=== PATIENT | female | born 1980 | race Caucasian/White ===

== ENCOUNTER → 2017-08-07 14:09 | Outpatient (CLI) | payer OTHER, MEDICAID, SELFPAY ==
[2017-08-07 14:43] LABS: Add Manual Diff / Slide Review NO; Basophils Percent Auto 0.3 % (0-2); Hematocrit 39.2 % (36-46); Hemoglobin 13.5 g/dL (12.0-16.0); Mean Corpuscular HGB Conc 34.4 % (30-36); Mean Corpuscular Hemoglobin 31.8 PG (26-34); Mean Corpuscular Volume 92.5 fL (80-100); Monocytes Percent Auto 8.5 % (3-14); Neutrophils Absolute Auto 5200 /uL (3000-5900); Neutrophils Percent Auto 64.2 % (50-75); Platelet Count 301 X10^3/uL (150-400); Red Blood Cell Count 4.24 X10^6/uL (4.0-5.2); Red Cell Distribution Width 12.7 % (11.6-14.8); White Blood Cell Count 8.1 X10^3/uL (4.5-11.0)
[2017-08-07 16:42] LABS: BUN Creatinine Ratio 16.7 (6-22); Calcium 9.1 mg/dL (8.4-10.2); Estimated Glomerular Filt Rate > 60.0 mL/min (>60); Glucose 83 mg/dL (70-100); HEMOLYSIS < 15 (0-50); Potassium 4.3 mmol/L (3.4-5.1); Sodium 140 mmol/L (137-145)
[2017-08-07 16:56] LABS: Free T3, Triiodothyronine Free 4.51 pg/mL (2.77-5.27); Free T4, Direct Thyroxine 1.31 ng/dL (0.78-2.19)
[2017-08-07 17:10] LABS: Thyroid Stimulating Hormone 1.65 uIU/mL (0.47-4.68)
== END ==
PROVIDERS: Specialist; Family Provider Family Medicine; PCP Family Medicine; Visit Provider Family Medicine
DX: R53.83 Other fatigue (principal); Z83.49 Family history of other endocrine, nutritional and metabolic diseases
CPT/HCPCS: 36415; 80048; 84439; 84443; 84481; 85025

== ENCOUNTER 2018-02-15 22:08 | Emergency (ER) | payer SELFPAY ==
[2018-02-15 22:17] VITALS: BP 132/76; PULSE 117; RESP 22; TEMP 36.4; O2SAT 96; BMI 19.7
[2018-02-15 22:29] LABS: Appearance Urine UA TURBID; Bilirubin Urine UA NEGATIVE (NEGATIVE); Color Urine UA RED; Glucose Urine UA NEGATIVE (Normal); Ketones Urine UA TRACE (NEGATIVE); Leukocyte Esterase Urine UA NEGATIVE (NEGATIVE); Nitrite Urine UA NEGATIVE (Negative); Occult Blood Urine UA 3+ (Negative); Protein Urine UA 2+ (Negative); Specific Gravity Urine UA 1.025 (1.000-1.035); Urobilinogen Urine UA 0.2 E.U./dL (0.2); pH Urine UA 6.5 (4.5-8.0)
[2018-02-15 22:35] LABS: RBC Urine >100/HPF (0-5/HPF); WBC Urine 0-1/HPF (0-5/HPF)
[2018-02-15 22:36] LABS: Bacteria Urine Occasional (0-1); Culture Indicated Urine Cult Not Indicated
[2018-02-15] MEDS: KETOROLAC 60 MG/2 ML VIAL 15 MG IV (23:23)
[2018-02-15] MEDS: SODIUM CHLORIDE 0.9% 1,000 ML 1000 ML IV (23:23)
[2018-02-15] MEDS: ONDANSETRON 4 MG/2 ML INJ IV (23:24)
[2018-02-15] MEDS: CEFTRIAXONE 1 GM/50 ML FROZ.PIGGY IV (23:24)
[2018-02-16] MEDS: HYDROMORPHONE 1 MG INJ IV (00:16)
[2018-02-16 00:20] LABS: Add Manual Diff / Slide Review NO; Basophils Percent Auto 0.2 % (0-2); Eosinophils Percent Auto 0.7 % (2-4); Hematocrit 40.3 % (36-46); Hemoglobin 13.8 g/dL (12.0-16.0); Lymphocytes Percent Auto 15.8 % (25-40); Mean Corpuscular HGB Conc 34.1 % (30-36); Mean Corpuscular Hemoglobin 32.3 PG (26-34); Mean Corpuscular Volume 94.7 fL (80-100); Monocytes Percent Auto 5.6 % (3-14); Neutrophils Absolute Auto 14600 /uL (3000-5900); Neutrophils Percent Auto 77.7 % (50-75); Platelet Count 347 X10^3/uL (150-400); Red Blood Cell Count 4.26 X10^6/uL (4.0-5.2); Red Cell Distribution Width 13.2 % (11.6-14.8); White Blood Cell Count 18.8 X10^3/uL (4.5-11.0)
[2018-02-16 00:24] LABS: BUN Creatinine Ratio 21.7 (6-22); Blood Urea Nitrogen 13 mg/dL (7-17); Calcium 9.9 mg/dL (8.4-10.2); Carbon Dioxide 24 mmol/L (22-32); Chloride 105 mmol/L (98-107); Estimated Glomerular Filt Rate > 60.0 mL/min (>60); Glucose 65 mg/dL (70-100); HEMOLYSIS < 15 (0-50); Potassium 3.9 mmol/L (3.4-5.1); Sodium 144 mmol/L (137-145)
[2018-02-16 00:25] LABS: Lactate (Lactic Acid) 1.4 mmol/L (0.7-2.1)
--- NOTE | 2018-02-16 00:28 | ED.FEMALEGU ---
HPI - Female Genitourinary General Chief complaint: Urogenital-Female Stated complaint: KIDNEY INFECTION Time Seen by Provider: 02/15/18 22:31 Source: patient and family History of Present Illness HPI Narrative: 37F former smoker presents with chief complaint of a few days of dysuria, frequency and urgency as well as bilateral lumbar and flank discomfort. She has had subjective fever but denies chills. She has had nausea but denies vomiting. Patient has a longstanding history of pyelonephritis and is under the care of a urologic specialist in [place]. She states the current hypothesis is that her chronic constipation exerts pressure on the ureters preventing appropriate drainage. She has undergone significant evaluation of her bowel habits and has taken as many steps as possible to ensure regular. Her last us of antibiotics was about 6 months ago MD Complaint: dysuria and UTI Onset (ago): day(s) Female Urogenital Radiation: L Flank and R Flank Severity: moderate Quality: Aching, Burning and Cramping Duration: constant Relieving factors: none Exacerbating factors: urination and movement Urinary symptoms: Difficulty Urinating, Dysuria, Flank Pain, Foul Smelling Urine and Frequency Patient : No Related Data Previous Rx's Medication Instructions Recorded levonorgestrel-ethinyl estradiol 1 tab PO QDAY #3 pac 01/31/18 0.1 mg-20 mcg tablet cephalexin [Keflex] 500 mg PO QID 10 Days #40 cap 02/16/18 hydrocodone-acetaminophen 1 tab PO Q4-6H PRN #14 tab 02/16/18 ondansetron 4 mg PO TID-QID PRN #10 tab 02/16/18 Allergies Allergy/AdvReac Type Severity Reaction Status Date / Time Sulfa (Sulfonamide Allergy Severe ANAPHYLACTI Verified 02/15/18 22:17 Antibiotics) C Review of Systems Review of Systems All systems reviewed & are unremarkable except as noted in HPI and below Constitutional Denies chills, Denies fever(s), Denies lethargy and Denies weakness Eyes Denies change in vision, Denies eye discharge, Denies irritation and Denies loss of vision ENT Ears, Nose, Mouth, and Throat: Denies change in voice, Denies neck pain and Denies sore throat Cardiovascular Denies chest pain, Denies irregular heart rhythm, Denies lightheadedness, Denies palpitations, Denies dyspnea, Denies dyspnea on exertion and Denies orthopnea Respiratory Denies cough, Denies dyspnea, Denies dyspnea on exertion and Denies wheezing Gastrointestinal Gastrointestinal: Denies abdominal pain, Denies change in bowel habits, Denies diarrhea, Denies nausea and Denies vomiting Genitourinary Denies hematuria, Reports flank pain, Denies urinary incontinence and Reports urinary urgency Musculoskeletal Reports back pain and Denies neck pain Integumentary/Breasts Denies pruritus, Denies erythema, Denies rash and Denies wounds Neurologic Denies confusion, Denies loss of vision and Denies weakness Psychiatric Denies anxiety, Denies confusion, Denies depression, Denies homicidal ideation and Denies suicidal ideation Endocrine Denies palpitations Hematologic/Lymphatic Denies easy bruising Allergic/Immunologic Denies wheezing [facility] Surgical History Status post dilation and curettage Status post tubal ligation Family History Brother Age: 25 Mental health problem Father Age: 60 Hypertension High cholesterol Mental health problem Grandmother Hypertension High cholesterol Mother Mental health problem Grandfather Heart disease Hypertension High cholesterol Stroke Grandmother Hypertension High cholesterol Social History Smoking Status: Current every day smoker Exam Narrative Exam Narrative: GENERAL: 37-year-old female's obviously uncomfortable, tearful clutching her lower back HEAD: Atraumatic. Normocephalic. No temporal or scalp tenderness. EYES: Pupils equal round and reactive. Extraocular motions intact. No scleral icterus. No injection or drainage. ENT: Nose without bleeding, purulent drainage or septal hematoma. Throat without erythema, tonsillar hypertrophy or exudate. Uvula midline. Airway patent. NECK: Trachea midline. No JVD or lymphadenopathy. Supple, nontender, no meningeal signs. CARDIOVASCULAR: Tachycardic, but regular rhythm without murmurs, gallops, or rubs. RESPIRATORY: Clear to auscultation. Breath sounds equal bilaterally. No wheezes, rales, or rhonchi. GASTROINTESTINAL: Abdomen soft, non-tender, nondistended. No hepato-splenomegaly, or palpable masses. No guarding. EXTREMITIES: No clubbing, cyanosis, or edema. No joint tenderness, effusion, or edema noted. BACK: B/L CVA tenderness NEURO: AOx3. SKIN: No rash or erythema. Initial Vital Signs Initial Vital Signs: Vital Signs Temperature 97.6 F 02/15/18 22:17 Pulse Rate 117 H 02/15/18 22:17 Respiratory Rate 22 02/15/18 22:17 Blood Pressure 132/76 02/15/18 22:17 Pulse Oximetry 96 02/15/18 22:17 Course Orders Ordered: ED Orders 02/15/18 22:12 UA Complete [Urinalysis and Microscopic] Stat 02/16/18 00:07 Basic Metabolic Panel Stat Complete Blood Count AUTO DIFF Stat 02/16/18 00:10 Blood Culture Stat Lactate (Lactic Acid) Stat Discontinued Medications Hydrocodone Bitart/Acetaminophen (Vicodin Prepack) 1 bottle MISC SEEINSTR ONE Stop: 02/16/18 00:45 Last Admin: 02/16/18 00:51 Dose: 1 bottle Hydromorphone HCl (Dilaudid) 1 mg IV NOW ONE Stop: 02/16/18 00:09 Last Admin: 02/16/18 00:16 Dose: 1 mg Ceftriaxone Sodium/Dextrose (Rocephin) 1 gm in 50 mls @ 100 mls/hr IV NOW ONE Stop: 02/15/18 23:41 Last Infusion: 02/16/18 00:07 Dose: 0 mls/hr Admin: 02/15/18 23:24 Dose: 100 mls/hr Sodium Chloride (Normal Saline 0.9%) 1,000 mls @ 1,000 mls/hr IV BOLUS ONE Stop: 02/16/18 00:11 Last Infusion: 02/16/18 01:06 Dose: 0 mls/hr Admin: 02/15/18 23:23 Dose: 1,000 mls/hr Ketorolac Tromethamine (Toradol) 15 mg IV NOW ONE Stop: 02/15/18 23:13 Last Admin: 02/15/18 23:23 Dose: 15 mg Ondansetron HCl (Zofran) 4 mg IV Q4HR PRN PRN Reason: Nausea And Vomiting Last Admin: 02/15/18 23:24 Dose: 4 mg Phenazopyridine HCl (Pyridium 100mg Prepack) 1 bottle MISC SEEINSTR ONE Stop: 02/16/18 01:14 Last Admin: 02/16/18 01:14 Dose: 1 bottle Vital Signs - 8 hr 02/15/18 22:17 02/16/18 00:41 Temperature 97.6 F 98.2 F Pulse Rate 117 H 68 Respiratory Rate 22 Blood Pressure 132/76 Blood Pressure [Left Arm] 108/61 Pulse Oximetry 96 100 MDM - Female Genitourinary Differential Diagnosis Likely urinary tract infection, cervicitis, ovarian cyst, vaginitis and cyst of Bartholin's gland Lab Data Result diagrams: 02/15/18 23:00 02/15/18 23:00 Lab Results 02/15/18 02/15/18 02/15/18 Range/Units 22:12 23:00 23:00 WBC 18.8 H (4.5-11.0) X10^3/uL RBC 4.26 (4.0-5.2) X10^6/uL Hgb 13.8 (12.0-16.0) g/dL Hct 40.3 (36-46) % MCV 94.7 (80-100) fL MCH 32.3 (26-34) PG MCHC 34.1 (30-36) % RDW 13.2 (11.6-14.8) % Plt Count 347 (150-400) X10^3/uL Neut % (Auto) 77.7 H (50-75) % Lymph % (Auto) 15.8 L (25-40) % Ray % (Auto) 5.6 (3-14) % Eos % (Auto) 0.7 L (2-4) % Baso % (Auto) 0.2 (0-2) % Neut # (Auto) 30604 H (8843-4415) /uL Sodium 144 (137-145) mmol/L Potassium 3.9 (3.4-5.1) mmol/L Chloride 105 (98-107) mmol/L Carbon Dioxide 24 (22-32) mmol/L BUN 13 (7-17) mg/dL Creatinine 0.60 (0.52-1.04) mg/dL Estimated GFR > 60.0 (>60) mL/min BUN/Creatinine Ratio 21.7 (6-22) Glucose 65 L (70-100) mg/dL Lactate (0.7-2.1) mmol/L Calcium 9.9 (8.4-10.2) mg/dL Urine Color Red Urine Appearance Turbid Urine pH 6.5 (4.5-8.0) Ur Specific [place] 1.025 (1.000-1.035) Urine Protein 2+ H (Negative) Urine Glucose (UA) Negative (Normal) g/dL Urine Ketones Trace H (NEGATIVE) Urine Occult Blood 3+ H (Negative) Urine Nitrate Negative (Negative) Urine Bilirubin Negative (NEGATIVE) Urine Urobilinogen 0.2 (0.2) E.U./dL Ur Leukocyte Esterase Negative (NEGATIVE) Urine RBC >100/hpf H (0-5/HPF) Urine WBC 0-1/hpf (0-5/HPF) Urine Bacteria Occasional (0-1) (None) Ur Culture Indicated? Cult not indicated Micro UA Comment Not Reportable 02/15/18 Range/Units 23:00 WBC (4.5-11.0) X10^3/uL RBC (4.0-5.2) X10^6/uL Hgb (12.0-16.0) g/dL Hct (36-46) % MCV (80-100) fL MCH (26-34) PG MCHC (30-36) % RDW (11.6-14.8) % Plt Count (150-400) X10^3/uL Neut % (Auto) (50-75) % Lymph % (Auto) (25-40) % Ray % (Auto) (3-14) % Eos % (Auto) (2-4) % Baso % (Auto) (0-2) % Neut # (Auto) (2518-8334) /uL Sodium (137-145) mmol/L Potassium (3.4-5.1) mmol/L Chloride (98-107) mmol/L Carbon Dioxide (22-32) mmol/L BUN (7-17) mg/dL Creatinine (0.52-1.04) mg/dL Estimated GFR (>60) mL/min BUN/Creatinine Ratio (6-22) Glucose (70-100) mg/dL Lactate 1.4 (0.7-2.1) mmol/L Calcium (8.4-10.2) mg/dL Urine Color Urine Appearance Urine pH (4.5-8.0) Ur Specific [place] (1.000-1.035) Urine Protein (Negative) Urine Glucose (UA) (Normal) g/dL Urine Ketones (NEGATIVE) Urine Occult Blood (Negative) Urine Nitrate (Negative) Urine Bilirubin (NEGATIVE) Urine Urobilinogen (0.2) E.U./dL Ur Leukocyte Esterase (NEGATIVE) Urine RBC (0-5/HPF) Urine WBC (0-5/HPF) Urine Bacteria (None) Ur Culture Indicated? Micro UA Comment Point of Care Testing Test Results Negative MDM Narrative Medical decision making narrative: 37F with long urologic history complains of dysuria, frequency, urgency, and flank pain. She denies hx stones. Pain is worse with motion and improves with rest. UA shows blood but no obvious signs of infection. Decision to treat based on patient history and elevated WBC Discharge Plan Departure Patient Disposition: Home Clinical Impression: Pyelonephritis Discharge Date/Time: 02/16/18 01:15 Interventions: ED Discharge Assessment Last Done: 02/16/18 01:11 Instructions: DI for Kidney Infection Activity Restrictions/Additional Instructions: *You have been diagnosed with [ acute pyelonephritis ] *What to do: *Take medications as directed *Follow up with your primary care provider in 2-3 days, call for an appointment. Let them know you were seen in the Emergency Department and that we ask that you be seen in follow up *Return to ER if you should have any new, worsening or concerning symptoms Prescriptions: New hydrocodone-acetaminophen 5-325 mg tablet 1 tab PO Q4-6H PRN (Reason: pain) Qty: 14 RF: 0 cephalexin [Keflex] 500 mg capsule 500 mg PO QID 10 Days Qty: 40 RF: 0 ondansetron 4 mg tablet,disintegrating 4 mg PO TID-QID PRN (Reason: nausea and vomiting) Qty: 10 RF: 0 No Action levonorgestrel-ethinyl estrad [Aviane] 0.1-20 mg-mcg tablet 1 tab PO QDAY Qty: 3 RF: 3 Referrals: Frida Johnson MD [Primary Care Provider] -
[2018-02-16 00:41] VITALS: BP 108/61; PULSE 68; TEMP 36.8; O2SAT 100
[2018-02-16] MEDS: HYDROCODONE/ACET 5/325 PREPACK 1 BOTTLE MISC (00:51)
[2018-02-16] MEDS: PHENAZOPYRIDINE 100 MG PREPACK 1 BOTTLE MISC (01:14)
== END 2018-02-16 01:15 | disposition home or self-care (01) ==
PROVIDERS: Emergency Provider Emergency Medicine; Family Provider Family Medicine; PCP Family Medicine
DX: N12 Tubulo-interstitial nephritis, not specified as acute or chronic (principal)
CPT/HCPCS: 36415; 36591; 80048; 81001; 81025; 83605; 85025; 87040; 96361; 96365; 96375; 99283; 99284; J1170; J1885; J2405

== ENCOUNTER 2018-03-04 13:00 | Emergency (ER) | payer SELFPAY ==
[2018-03-04 13:09] VITALS: BP 110/72; PULSE 88; RESP 15; TEMP 36.7; O2SAT 100; BMI 19.7
[2018-03-04 13:45] LABS: Bacteria Urine Moderate (10-30); Culture Indicated Urine Cult Not Indicated; Mucus Urine 1+ (Negative); RBC Urine 1-5/HPF (0-5/HPF); Squamous Epithelial Cell Urine 10-30 /HPF; WBC Urine 1-5/HPF (0-5/HPF)
--- NOTE | 2018-03-04 14:33 | ED.FEMALEGU ---
HPI - Female Genitourinary <Tamica Mcduffie PA-C - Last Filed: 03/04/18 18:50> General Chief complaint: Urogenital-Female Stated complaint: KIDNEY INFECTION Time Seen by Provider: 03/04/18 14:32 Source: patient Mode of arrival: ambulatory Limitations: no limitations History of Present Illness HPI Narrative: Patient returns with what she suspects is recurrent pyelonephritis. She was seen here almost 3 weeks ago and treated. She states that she got better, however this hit her suddenly again last night, started with flank pain, general malaise, and chills, then had abrupt onset of nausea and vomiting multiple times since this morning as well as flank pain on both sides, mostly on the left and some pressure in her abdomen. She has not taken her temperature at home. She does have urinary urgency and frequency but no dysuria or hematuria. She states that this is typical of her previous infections. She states that she is seeing a urologist for this, and typically can be treated as an outpatient. She has had to be hospitalized once. She states that she had some diarrhea with onset of this, also not unusual. She denies any chest pain, dyspnea, URI symptoms or recent illness. No swelling or pain in the extremities. Denies possibility of , on OCP. Denies any other complaints on systems review aside from chronic fatigue exacerbated by recent infections Related Data Previous Rx's Medication Instructions Recorded levonorgestrel-ethinyl estradiol 1 tab PO QDAY #3 pac 01/31/18 0.1 mg-20 mcg tablet ondansetron 4 mg PO TID-QID PRN #10 tab 02/16/18 levofloxacin [Levaquin] 500 mg PO DAILY 10 Days tab 03/04/18 oxycodone-acetaminophen [Percocet] 1 tab PO Q4-6H PRN #10 tab 03/04/18 Allergies Allergy/AdvReac Type Severity Reaction Status Date / Time Sulfa (Sulfonamide Allergy Severe ANAPHYLACTI Verified 03/04/18 13:09 Antibiotics) C Review of Systems <Tamica Mcduffie PA-C - Last Filed: 03/04/18 18:50> Review of Systems All systems reviewed & are unremarkable except as noted in HPI and below Exam <Tamica Mcduffie PA-C - Last Filed: 03/04/18 18:50> Narrative Exam Narrative: GENERAL APPEARANCE: Patient resting comfortably, in no distress. Intermittently tearful LUNGS: Clear to auscultation bilaterally. HEART: Rate and rhythm regular without murmur, normal S1 and S2, no S3 or S4. ABDOMEN: Soft, ND, +BS x 4 quadrants, no CVAT. Minimal generalized tenderness without guarding or rebound. Exquisite left CVAT EXTREMITIES: No cyanosis or edema, no calf tenderness NEUROLOGIC: Alert, oriented, normal speech and coordination Initial Vital Signs Initial Vital Signs: Vital Signs Temperature 98.0 F 03/04/18 13:09 Pulse Rate 88 03/04/18 13:09 Respiratory Rate 15 03/04/18 13:09 Blood Pressure 110/72 03/04/18 13:09 Pulse Oximetry 100 03/04/18 13:09 <Dede Holliday DO - Last Filed: 03/04/18 19:06> Initial Vital Signs Initial Vital Signs: Vital Signs Temperature 98.0 F 03/04/18 13:09 Pulse Rate 88 03/04/18 13:09 Respiratory Rate 15 03/04/18 13:09 Blood Pressure 110/72 03/04/18 13:09 Pulse Oximetry 100 03/04/18 13:09 Course <Tamica Mcduffie PA-C - Last Filed: 03/04/18 18:50> Additional Information: Patient feels like this is typical of her pyelonephritis. She states she alternates between cephalexin, Cipro and Levaquin for these and has not had side effects. Currently, she states her nausea is resolved. She continues to have pain but is tolerating p.o. medication now. Urine culture is pending. Her lab work from today is reassuring. She agrees to return if any acutely worsening symptoms, otherwise will start Levaquin, advised continue anti-inflammatory as well as given a prescription for some Percocet for the acute pain. She will call urologist tomorrow and arrange follow-up this week as she may need an extended course of antibiotics. Also advised trial of daily MiraLax for her chronic constipation which is felt to affect her urinary output Orders Ordered: ED Orders 03/04/18 13:13 Urine Culture Stat Urine Microscopic Stat 03/04/18 15:09 Basic Metabolic Panel Stat Complete Blood Count AUTO DIFF Stat Lactate (Lactic Acid) Stat Discontinued Medications Hydrocodone Bitart/Acetaminophen ([place] 5/325) 2 tab PO NOW ONE Stop: 03/04/18 16:20 Last Admin: 03/04/18 16:22 Dose: 2 tab Hydromorphone HCl (Dilaudid) 1 mg IV NOW ONE Stop: 03/04/18 14:44 Last Admin: 03/04/18 15:07 Dose: 1 mg Ceftriaxone Sodium/Dextrose (Rocephin) 1 gm in 50 mls @ 100 mls/hr IV NOW ONE Stop: 03/04/18 15:12 Last Infusion: 03/04/18 16:21 Dose: 0 mls/hr Admin: 03/04/18 15:07 Dose: 100 mls/hr Sodium Chloride (Normal Saline 0.9%) 1,000 mls @ 1,000 mls/hr IV BOLUS ONE Stop: 03/04/18 16:14 Last Infusion: 03/04/18 16:44 Dose: 0 mls/hr Admin: 03/04/18 15:17 Dose: 1,000 mls/hr Ketorolac Tromethamine (Toradol) 30 mg IV NOW ONE Stop: 03/04/18 14:44 Last Admin: 03/04/18 15:07 Dose: 30 mg Ondansetron HCl (Zofran) 4 mg IV NOW ONE Stop: 03/04/18 14:44 Last Admin: 03/04/18 15:07 Dose: 4 mg Vital Signs - 8 hr 03/04/18 13:09 03/04/18 15:17 03/04/18 16:24 Temperature 98.0 F Pulse Rate 88 53 L 50 L Respiratory Rate 15 16 16 Blood Pressure 110/72 Blood Pressure [Right Arm] 111/61 109/57 L Pulse Oximetry 100 99 100 03/04/18 16:45 Temperature Pulse Rate 52 L Respiratory Rate 18 Blood Pressure Blood Pressure [Right Arm] 114/51 L Pulse Oximetry <Dede Holliday, - Last Filed: 03/04/18 19:06> Orders Ordered: ED Orders 03/04/18 13:13 Urine Culture Stat Urine Microscopic Stat 03/04/18 15:09 Basic Metabolic Panel Stat Complete Blood Count AUTO DIFF Stat Lactate (Lactic Acid) Stat Discontinued Medications Hydrocodone Bitart/Acetaminophen ([place] 5/325) 2 tab PO NOW ONE Stop: 03/04/18 16:20 Last Admin: 03/04/18 16:22 Dose: 2 tab Hydromorphone HCl (Dilaudid) 1 mg IV NOW ONE Stop: 03/04/18 14:44 Last Admin: 03/04/18 15:07 Dose: 1 mg Ceftriaxone Sodium/Dextrose (Rocephin) 1 gm in 50 mls @ 100 mls/hr IV NOW ONE Stop: 03/04/18 15:12 Last Infusion: 03/04/18 16:21 Dose: 0 mls/hr Admin: 03/04/18 15:07 Dose: 100 mls/hr Sodium Chloride (Normal Saline 0.9%) 1,000 mls @ 1,000 mls/hr IV BOLUS ONE Stop: 03/04/18 16:14 Last Infusion: 03/04/18 16:44 Dose: 0 mls/hr Admin: 03/04/18 15:17 Dose: 1,000 mls/hr Ketorolac Tromethamine (Toradol) 30 mg IV NOW ONE Stop: 03/04/18 14:44 Last Admin: 03/04/18 15:07 Dose: 30 mg Ondansetron HCl (Zofran) 4 mg IV NOW ONE Stop: 03/04/18 14:44 Last Admin: 03/04/18 15:07 Dose: 4 mg Vital Signs - 8 hr 03/04/18 13:09 03/04/18 15:17 03/04/18 16:24 Temperature 98.0 F Pulse Rate 88 53 L 50 L Respiratory Rate 15 16 16 Blood Pressure 110/72 Blood Pressure [Right Arm] 111/61 109/57 L Pulse Oximetry 100 99 100 03/04/18 16:45 Temperature Pulse Rate 52 L Respiratory Rate 18 Blood Pressure Blood Pressure [Right Arm] 114/51 L Pulse Oximetry MDM - Female Genitourinary <Tamica Mcduffie PA-C - Last Filed: 03/04/18 18:50> Lab Data Result diagrams: 03/04/18 15:09 03/04/18 15:09 Lab Results 03/04/18 03/04/18 03/04/18 Range/Units 13:13 15:09 15:09 WBC 9.0 (4.5-11.0) X10^3/uL RBC 3.97 L (4.0-5.2) X10^6/uL Hgb 12.9 (12.0-16.0) g/dL Hct 38.2 (36-46) % MCV 96.2 (80-100) fL MCH 32.4 (26-34) PG MCHC 33.7 (30-36) % RDW 13.7 (11.6-14.8) % Plt Count 332 (150-400) X10^3/uL Neut % (Auto) 66.9 (50-75) % Lymph % (Auto) 23.1 L (25-40) % [place] % (Auto) 8.3 (3-14) % Eos % (Auto) 0.9 L (2-4) % Baso % (Auto) 0.8 (0-2) % Neut # (Auto) 6000 (5965-4377) /uL Sodium 142 (137-145) mmol/L Potassium 4.1 (3.4-5.1) mmol/L Chloride 107 (98-107) mmol/L Carbon Dioxide 23 (22-32) mmol/L BUN 10 (7-17) mg/dL Creatinine 0.70 (0.52-1.04) mg/dL Estimated GFR > 60.0 (>60) mL/min BUN/Creatinine Ratio 14.3 (6-22) Glucose 69 L (70-100) mg/dL Lactate (0.7-2.1) mmol/L Calcium 9.5 (8.4-10.2) mg/dL Urine RBC 1-5/hpf D (0-5/HPF) Urine WBC 1-5/hpf (0-5/HPF) Ur Squamous Epith Cells 10-30 /hpf H Urine Bacteria Moderate (10-30) H (None) Urine Mucus 1+ H (Negative) Ur Culture Indicated? Cult not indicated Micro UA Comment Not Reportable 03/04/18 Range/Units 15:09 WBC (4.5-11.0) X10^3/uL RBC (4.0-5.2) X10^6/uL Hgb (12.0-16.0) g/dL Hct (36-46) % MCV (80-100) fL MCH (26-34) PG MCHC (30-36) % RDW (11.6-14.8) % Plt Count (150-400) X10^3/uL Neut % (Auto) (50-75) % Lymph % (Auto) (25-40) % [place] % (Auto) (3-14) % Eos % (Auto) (2-4) % Baso % (Auto) (0-2) % Neut # (Auto) (1126-5015) /uL Sodium (137-145) mmol/L Potassium (3.4-5.1) mmol/L Chloride (98-107) mmol/L Carbon Dioxide (22-32) mmol/L BUN (7-17) mg/dL Creatinine (0.52-1.04) mg/dL Estimated GFR (>60) mL/min BUN/Creatinine Ratio (6-22) Glucose (70-100) mg/dL Lactate 1.1 (0.7-2.1) mmol/L Calcium (8.4-10.2) mg/dL Urine RBC (0-5/HPF) Urine WBC (0-5/HPF) Ur Squamous Epith Cells Urine Bacteria (None) Urine Mucus (Negative) Ur Culture Indicated? Micro UA Comment Point of Care Testing Test Results Negative Urine Dip Bedside Urine Glucose Negative Bedside Urine Bilirubin - Negative Bedside Urine Ketone + 15 Urine Specific [place] 1.025 Bedside Urine Occult Blood + Bedside Urine pH 6.0 Bedside Urine Protein - Negative Bedside Urine Urobilinogen - Negative Bedside Urine Nitrite - Negative Bedside Urine Leukocytes - Negative Esterase <Dede Holliday, DO - Last Filed: 03/04/18 19:06> Lab Data Lab Results 03/04/18 03/04/18 03/04/18 Range/Units 13:13 15:09 15:09 WBC 9.0 (4.5-11.0) X10^3/uL RBC 3.97 L (4.0-5.2) X10^6/uL Hgb 12.9 (12.0-16.0) g/dL Hct 38.2 (36-46) % MCV 96.2 (80-100) fL MCH 32.4 (26-34) PG MCHC 33.7 (30-36) % RDW 13.7 (11.6-14.8) % Plt Count 332 (150-400) X10^3/uL Neut % (Auto) 66.9 (50-75) % Lymph % (Auto) 23.1 L (25-40) % [place] % (Auto) 8.3 (3-14) % Eos % (Auto) 0.9 L (2-4) % Baso % (Auto) 0.8 (0-2) % Neut # (Auto) 6000 (8460-6441) /uL Sodium 142 (137-145) mmol/L Potassium 4.1 (3.4-5.1) mmol/L Chloride 107 (98-107) mmol/L Carbon Dioxide 23 (22-32) mmol/L BUN 10 (7-17) mg/dL Creatinine 0.70 (0.52-1.04) mg/dL Estimated GFR > 60.0 (>60) mL/min BUN/Creatinine Ratio 14.3 (6-22) Glucose 69 L (70-100) mg/dL Lactate (0.7-2.1) mmol/L Calcium 9.5 (8.4-10.2) mg/dL Urine RBC 1-5/hpf D (0-5/HPF) Urine WBC 1-5/hpf (0-5/HPF) Ur Squamous Epith Cells 10-30 /hpf H Urine Bacteria Moderate (10-30) H (None) Urine Mucus 1+ H (Negative) Ur Culture Indicated? Cult not indicated Micro UA Comment Not Reportable 03/04/18 Range/Units 15:09 WBC (4.5-11.0) X10^3/uL RBC (4.0-5.2) X10^6/uL Hgb (12.0-16.0) g/dL Hct (36-46) % MCV (80-100) fL MCH (26-34) PG MCHC (30-36) % RDW (11.6-14.8) % Plt Count (150-400) X10^3/uL Neut % (Auto) (50-75) % Lymph % (Auto) (25-40) % [place] % (Auto) (3-14) % Eos % (Auto) (2-4) % Baso % (Auto) (0-2) % Neut # (Auto) (2786-7693) /uL Sodium (137-145) mmol/L Potassium (3.4-5.1) mmol/L Chloride (98-107) mmol/L Carbon Dioxide (22-32) mmol/L BUN (7-17) mg/dL Creatinine (0.52-1.04) mg/dL Estimated GFR (>60) mL/min BUN/Creatinine Ratio (6-22) Glucose (70-100) mg/dL Lactate 1.1 (0.7-2.1) mmol/L Calcium (8.4-10.2) mg/dL Urine RBC (0-5/HPF) Urine WBC (0-5/HPF) Ur Squamous Epith Cells Urine Bacteria (None) Urine Mucus (Negative) Ur Culture Indicated? Micro UA Comment Point of Care Testing Test Results Negative Urine Dip Bedside Urine Glucose Negative Bedside Urine Bilirubin - Negative Bedside Urine Ketone + 15 Urine Specific [place] 1.025 Bedside Urine Occult Blood + Bedside Urine pH 6.0 Bedside Urine Protein - Negative Bedside Urine Urobilinogen - Negative Bedside Urine Nitrite - Negative Bedside Urine Leukocytes - Negative Esterase Discharge Plan Departure Patient Disposition: Home Clinical Impression: Pyelonephritis Discharge Date/Time: 03/04/18 17:48 Interventions: ED Discharge Assessment Last Done: 03/04/18 18:00 Instructions: DI for Kidney Infection Activity Restrictions/Additional Instructions: You should return as we talked about if you have acutely worsening symptoms such as protracted vomiting, or new symptoms such as fever. Please continue taking an [id number] anti-inflammatory such as ibuprofen or Aleve, and you can also take the Percocet as needed (do not drive) for the next day or 2 for acute pain. supply chain tech the antibiotic and started this evening. Please call your urologist and arrange for follow-up this week. You should also talk about whether they want you to do a longer course of antibiotics due to this episode. Please try starting MiraLax [id number] once daily to help with your constipation since this seems to be a factor in your infections and you will be taking some pain medication. Prescriptions: New oxycodone-acetaminophen [Percocet] 5-325 mg tablet 1 tab PO Q4-6H PRN (Reason: pain) Qty: 10 RF: 0 levofloxacin [Levaquin] 500 mg tablet 500 mg PO DAILY 10 Days RF: 0 Discontinued hydrocodone-acetaminophen 5-325 mg tablet 1 tab PO Q4-6H PRN (Reason: pain) Qty: 14 RF: 0 No Action levonorgestrel-ethinyl estrad [Aviane] 0.1-20 mg-mcg tablet 1 tab PO QDAY Qty: 3 RF: 3 ondansetron 4 mg tablet,disintegrating 4 mg PO TID-QID PRN (Reason: nausea and vomiting) Qty: 10 RF: 0 Referrals: [facility], Urology [Other] Frida Johnson MD [Primary Care Provider] - <Dede Holliday DO - Last Filed: 03/04/18 19:06> Cosign ED Attending Ravindra Attestation: I was immediately available in the department for consultation. Documentation has been reviewed. I agree with assessment and plan.
--- NOTE | 2018-03-04 14:50 | ED_ITS ---
HPI - Female Genitourinary <Tamica Mcduffie PA-C - Last Filed: 03/04/18 18:50> General Chief complaint: Urogenital-Female Stated complaint: KIDNEY INFECTION Time Seen by Provider: 03/04/18 14:32 Source: patient Mode of arrival: ambulatory Limitations: no limitations History of Present Illness HPI Narrative: Patient returns with what she suspects is recurrent pyelonephritis. She was seen here almost 3 weeks ago and treated. She states that she got better, however this hit her suddenly again last night, started with flank pain, general malaise, and chills, then had abrupt onset of nausea and vomiting multiple times since this morning as well as flank pain on both sides, mostly on the left and some pressure in her abdomen. She has not taken her temperature at home. She does have urinary urgency and frequency but no dysuria or hematuria. She states that this is typical of her previous infections. She states that she is seeing a urologist for this, and typically can be treated as an outpatient. She has had to be hospitalized once. She states that she had some diarrhea with onset of this, also not unusual. She denies any chest pain, dyspnea, URI symptoms or recent illness. No swelling or pain in the extremities. Denies possibility of , on OCP. Denies any other complaints on systems review aside from chronic fatigue exacerbated by recent infections Related Data Previous Rx's Medication Instructions Recorded levonorgestrel-ethinyl estradiol 1 tab PO QDAY #3 pac 01/31/18 0.1 mg-20 mcg tablet ondansetron 4 mg PO TID-QID PRN #10 tab 02/16/18 levofloxacin [Levaquin] 500 mg PO DAILY 10 Days tab 03/04/18 oxycodone-acetaminophen [Percocet] 1 tab PO Q4-6H PRN #10 tab 03/04/18 Allergies Allergy/AdvReac Type Severity Reaction Status Date / Time Sulfa (Sulfonamide Allergy Severe ANAPHYLACTI Verified 03/04/18 13:09 Antibiotics) C Review of Systems <Tamica Mcduffie PA-C - Last Filed: 03/04/18 18:50> Review of Systems All systems reviewed & are unremarkable except as noted in HPI and below Exam <Tamica Mcduffie PA-C - Last Filed: 03/04/18 18:50> Narrative Exam Narrative: GENERAL APPEARANCE: Patient resting comfortably, in no distress. Intermittently tearful LUNGS: Clear to auscultation bilaterally. HEART: Rate and rhythm regular without murmur, normal S1 and S2, no S3 or S4. ABDOMEN: Soft, ND, +BS x 4 quadrants, no CVAT. Minimal generalized tenderness without guarding or rebound. Exquisite left CVAT EXTREMITIES: No cyanosis or edema, no calf tenderness NEUROLOGIC: Alert, oriented, normal speech and coordination Initial Vital Signs Initial Vital Signs: Vital Signs Temperature 98.0 F 03/04/18 13:09 Pulse Rate 88 03/04/18 13:09 Respiratory Rate 15 03/04/18 13:09 Blood Pressure 110/72 03/04/18 13:09 Pulse Oximetry 100 03/04/18 13:09 <Dede Holliday DO - Last Filed: 03/04/18 19:06> Initial Vital Signs Initial Vital Signs: Vital Signs Temperature 98.0 F 03/04/18 13:09 Pulse Rate 88 03/04/18 13:09 Respiratory Rate 15 03/04/18 13:09 Blood Pressure 110/72 03/04/18 13:09 Pulse Oximetry 100 03/04/18 13:09 Course <Tamica Mcduffie PA-C - Last Filed: 03/04/18 18:50> Additional Information: Patient feels like this is typical of her pyelonephritis. She states she alternates between cephalexin, Cipro and Levaquin for these and has not had side effects. Currently, she states her nausea is resolved. She continues to have pain but is tolerating p.o. medication now. Urine culture is pending. Her lab work from today is reassuring. She agrees to return if any acutely worsening symptoms, otherwise will start Levaquin, advised continue anti-inflammatory as well as given a prescription for some Percocet for the acute pain. She will call urologist tomorrow and arrange follow-up this week as she may need an extended course of antibiotics. Also advised trial of daily MiraLax for her chronic constipation which is felt to affect her urinary output Orders Ordered: ED Orders 03/04/18 13:13 Urine Culture Stat Urine Microscopic Stat 03/04/18 15:09 Basic Metabolic Panel Stat Complete Blood Count AUTO DIFF Stat Lactate (Lactic Acid) Stat Discontinued Medications Hydrocodone Bitart/Acetaminophen ([place] 5/325) 2 tab PO NOW ONE Stop: 03/04/18 16:20 Last Admin: 03/04/18 16:22 Dose: 2 tab Hydromorphone HCl (Dilaudid) 1 mg IV NOW ONE Stop: 03/04/18 14:44 Last Admin: 03/04/18 15:07 Dose: 1 mg Ceftriaxone Sodium/Dextrose (Rocephin) 1 gm in 50 mls @ 100 mls/hr IV NOW ONE Stop: 03/04/18 15:12 Last Infusion: 03/04/18 16:21 Dose: 0 mls/hr Admin: 03/04/18 15:07 Dose: 100 mls/hr Sodium Chloride (Normal Saline 0.9%) 1,000 mls @ 1,000 mls/hr IV BOLUS ONE Stop: 03/04/18 16:14 Last Infusion: 03/04/18 16:44 Dose: 0 mls/hr Admin: 03/04/18 15:17 Dose: 1,000 mls/hr Ketorolac Tromethamine (Toradol) 30 mg IV NOW ONE Stop: 03/04/18 14:44 Last Admin: 03/04/18 15:07 Dose: 30 mg Ondansetron HCl (Zofran) 4 mg IV NOW ONE Stop: 03/04/18 14:44 Last Admin: 03/04/18 15:07 Dose: 4 mg Vital Signs - 8 hr 03/04/18 13:09 03/04/18 15:17 03/04/18 16:24 Temperature 98.0 F Pulse Rate 88 53 L 50 L Respiratory Rate 15 16 16 Blood Pressure 110/72 Blood Pressure [Right Arm] 111/61 109/57 L Pulse Oximetry 100 99 100 03/04/18 16:45 Temperature Pulse Rate 52 L Respiratory Rate 18 Blood Pressure Blood Pressure [Right Arm] 114/51 L Pulse Oximetry <Dede Holliday, - Last Filed: 03/04/18 19:06> Orders Ordered: ED Orders 03/04/18 13:13 Urine Culture Stat Urine Microscopic Stat 03/04/18 15:09 Basic Metabolic Panel Stat Complete Blood Count AUTO DIFF Stat Lactate (Lactic Acid) Stat Discontinued Medications Hydrocodone Bitart/Acetaminophen ([place] 5/325) 2 tab PO NOW ONE Stop: 03/04/18 16:20 Last Admin: 03/04/18 16:22 Dose: 2 tab Hydromorphone HCl (Dilaudid) 1 mg IV NOW ONE Stop: 03/04/18 14:44 Last Admin: 03/04/18 15:07 Dose: 1 mg Ceftriaxone Sodium/Dextrose (Rocephin) 1 gm in 50 mls @ 100 mls/hr IV NOW ONE Stop: 03/04/18 15:12 Last Infusion: 03/04/18 16:21 Dose: 0 mls/hr Admin: 03/04/18 15:07 Dose: 100 mls/hr Sodium Chloride (Normal Saline 0.9%) 1,000 mls @ 1,000 mls/hr IV BOLUS ONE Stop: 03/04/18 16:14 Last Infusion: 03/04/18 16:44 Dose: 0 mls/hr Admin: 03/04/18 15:17 Dose: 1,000 mls/hr Ketorolac Tromethamine (Toradol) 30 mg IV NOW ONE Stop: 03/04/18 14:44 Last Admin: 03/04/18 15:07 Dose: 30 mg Ondansetron HCl (Zofran) 4 mg IV NOW ONE Stop: 03/04/18 14:44 Last Admin: 03/04/18 15:07 Dose: 4 mg Vital Signs - 8 hr 03/04/18 13:09 03/04/18 15:17 03/04/18 16:24 Temperature 98.0 F Pulse Rate 88 53 L 50 L Respiratory Rate 15 16 16 Blood Pressure 110/72 Blood Pressure [Right Arm] 111/61 109/57 L Pulse Oximetry 100 99 100 03/04/18 16:45 Temperature Pulse Rate 52 L Respiratory Rate 18 Blood Pressure Blood Pressure [Right Arm] 114/51 L Pulse Oximetry MDM - Female Genitourinary <Tamica Mcduffie PA-C - Last Filed: 03/04/18 18:50> Lab Data Result diagrams: 03/04/18 15:09 03/04/18 15:09 Lab Results 03/04/18 03/04/18 03/04/18 Range/Units 13:13 15:09 15:09 WBC 9.0 (4.5-11.0) X10^3/uL RBC 3.97 L (4.0-5.2) X10^6/uL Hgb 12.9 (12.0-16.0) g/dL Hct 38.2 (36-46) % MCV 96.2 (80-100) fL MCH 32.4 (26-34) PG MCHC 33.7 (30-36) % RDW 13.7 (11.6-14.8) % Plt Count 332 (150-400) X10^3/uL Neut % (Auto) 66.9 (50-75) % Lymph % (Auto) 23.1 L (25-40) % [place] % (Auto) 8.3 (3-14) % Eos % (Auto) 0.9 L (2-4) % Baso % (Auto) 0.8 (0-2) % Neut # (Auto) 6000 (9284-2629) /uL Sodium 142 (137-145) mmol/L Potassium 4.1 (3.4-5.1) mmol/L Chloride 107 (98-107) mmol/L Carbon Dioxide 23 (22-32) mmol/L BUN 10 (7-17) mg/dL Creatinine 0.70 (0.52-1.04) mg/dL Estimated GFR > 60.0 (>60) mL/min BUN/Creatinine Ratio 14.3 (6-22) Glucose 69 L (70-100) mg/dL Lactate (0.7-2.1) mmol/L Calcium 9.5 (8.4-10.2) mg/dL Urine RBC 1-5/hpf D (0-5/HPF) Urine WBC 1-5/hpf (0-5/HPF) Ur Squamous Epith Cells 10-30 /hpf H Urine Bacteria Moderate (10-30) H (None) Urine Mucus 1+ H (Negative) Ur Culture Indicated? Cult not indicated Micro UA Comment Not Reportable 03/04/18 Range/Units 15:09 WBC (4.5-11.0) X10^3/uL RBC (4.0-5.2) X10^6/uL Hgb (12.0-16.0) g/dL Hct (36-46) % MCV (80-100) fL MCH (26-34) PG MCHC (30-36) % RDW (11.6-14.8) % Plt Count (150-400) X10^3/uL Neut % (Auto) (50-75) % Lymph % (Auto) (25-40) % [place] % (Auto) (3-14) % Eos % (Auto) (2-4) % Baso % (Auto) (0-2) % Neut # (Auto) (6715-8961) /uL Sodium (137-145) mmol/L Potassium (3.4-5.1) mmol/L Chloride (98-107) mmol/L Carbon Dioxide (22-32) mmol/L BUN (7-17) mg/dL Creatinine (0.52-1.04) mg/dL Estimated GFR (>60) mL/min BUN/Creatinine Ratio (6-22) Glucose (70-100) mg/dL Lactate 1.1 (0.7-2.1) mmol/L Calcium (8.4-10.2) mg/dL Urine RBC (0-5/HPF) Urine WBC (0-5/HPF) Ur Squamous Epith Cells Urine Bacteria (None) Urine Mucus (Negative) Ur Culture Indicated? Micro UA Comment Point of Care Testing Test Results Negative Urine Dip Bedside Urine Glucose Negative Bedside Urine Bilirubin - Negative Bedside Urine Ketone + 15 Urine Specific [place] 1.025 Bedside Urine Occult Blood + Bedside Urine pH 6.0 Bedside Urine Protein - Negative Bedside Urine Urobilinogen - Negative Bedside Urine Nitrite - Negative Bedside Urine Leukocytes - Negative Esterase <Dede Holliday, DO - Last Filed: 03/04/18 19:06> Lab Data Lab Results 03/04/18 03/04/18 03/04/18 Range/Units 13:13 15:09 15:09 WBC 9.0 (4.5-11.0) X10^3/uL RBC 3.97 L (4.0-5.2) X10^6/uL Hgb 12.9 (12.0-16.0) g/dL Hct 38.2 (36-46) % MCV 96.2 (80-100) fL MCH 32.4 (26-34) PG MCHC 33.7 (30-36) % RDW 13.7 (11.6-14.8) % Plt Count 332 (150-400) X10^3/uL Neut % (Auto) 66.9 (50-75) % Lymph % (Auto) 23.1 L (25-40) % [place] % (Auto) 8.3 (3-14) % Eos % (Auto) 0.9 L (2-4) % Baso % (Auto) 0.8 (0-2) % Neut # (Auto) 6000 (0299-6222) /uL Sodium 142 (137-145) mmol/L Potassium 4.1 (3.4-5.1) mmol/L Chloride 107 (98-107) mmol/L Carbon Dioxide 23 (22-32) mmol/L BUN 10 (7-17) mg/dL Creatinine 0.70 (0.52-1.04) mg/dL Estimated GFR > 60.0 (>60) mL/min BUN/Creatinine Ratio 14.3 (6-22) Glucose 69 L (70-100) mg/dL Lactate (0.7-2.1) mmol/L Calcium 9.5 (8.4-10.2) mg/dL Urine RBC 1-5/hpf D (0-5/HPF) Urine WBC 1-5/hpf (0-5/HPF) Ur Squamous Epith Cells 10-30 /hpf H Urine Bacteria Moderate (10-30) H (None) Urine Mucus 1+ H (Negative) Ur Culture Indicated? Cult not indicated Micro UA Comment Not Reportable 03/04/18 Range/Units 15:09 WBC (4.5-11.0) X10^3/uL RBC (4.0-5.2) X10^6/uL Hgb (12.0-16.0) g/dL Hct (36-46) % MCV (80-100) fL MCH (26-34) PG MCHC (30-36) % RDW (11.6-14.8) % Plt Count (150-400) X10^3/uL Neut % (Auto) (50-75) % Lymph % (Auto) (25-40) % [place] % (Auto) (3-14) % Eos % (Auto) (2-4) % Baso % (Auto) (0-2) % Neut # (Auto) (1095-2188) /uL Sodium (137-145) mmol/L Potassium (3.4-5.1) mmol/L Chloride (98-107) mmol/L Carbon Dioxide (22-32) mmol/L BUN (7-17) mg/dL Creatinine (0.52-1.04) mg/dL Estimated GFR (>60) mL/min BUN/Creatinine Ratio (6-22) Glucose (70-100) mg/dL Lactate 1.1 (0.7-2.1) mmol/L Calcium (8.4-10.2) mg/dL Urine RBC (0-5/HPF) Urine WBC (0-5/HPF) Ur Squamous Epith Cells Urine Bacteria (None) Urine Mucus (Negative) Ur Culture Indicated? Micro UA Comment Point of Care Testing Test Results Negative Urine Dip Bedside Urine Glucose Negative Bedside Urine Bilirubin - Negative Bedside Urine Ketone + 15 Urine Specific [place] 1.025 Bedside Urine Occult Blood + Bedside Urine pH 6.0 Bedside Urine Protein - Negative Bedside Urine Urobilinogen - Negative Bedside Urine Nitrite - Negative Bedside Urine Leukocytes - Negative Esterase Discharge Plan Departure Patient Disposition: Home Clinical Impression: Pyelonephritis Discharge Date/Time: 03/04/18 17:48 Interventions: ED Discharge Assessment Last Done: 03/04/18 18:00 Instructions: DI for Kidney Infection Activity Restrictions/Additional Instructions: You should return as we talked about if you have acutely worsening symptoms such as protracted vomiting, or new symptoms such as fever. Please continue taking an [id number] anti-inflammatory such as ibuprofen or Aleve, and you can also take the Percocet as needed (do not drive) for the next day or 2 for acute pain. 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 Please call your urologist and arrange for follow-up this week. You should also talk about whether they want you to do a longer course of antibiotics due to this episode. Please try starting MiraLax [id number] once daily to help with your constipation since this seems to be a factor in your infections and you will be taking some pain medication. Prescriptions: New oxycodone-acetaminophen [Percocet] 5-325 mg tablet 1 tab PO Q4-6H PRN (Reason: pain) Qty: 10 RF: 0 levofloxacin [Levaquin] 500 mg tablet 500 mg PO DAILY 10 Days RF: 0 Discontinued hydrocodone-acetaminophen 5-325 mg tablet 1 tab PO Q4-6H PRN (Reason: pain) Qty: 14 RF: 0 No Action levonorgestrel-ethinyl estrad [Aviane] 0.1-20 mg-mcg tablet 1 tab PO QDAY Qty: 3 RF: 3 ondansetron 4 mg tablet,disintegrating 4 mg PO TID-QID PRN (Reason: nausea and vomiting) Qty: 10 RF: 0 Referrals: [facility], Urology [Other] Frida Johnson MD [Primary Care Provider] - <Dede Holliday DO - Last Filed: 03/04/18 19:06> Cosign ED Attending Ravindra Attestation: I was immediately available in the department for consultation. Documentation has been reviewed. I agree with assessment and plan.
[2018-03-04] MEDS: ONDANSETRON 4 MG/2 ML INJ IV (15:07)
[2018-03-04] MEDS: CEFTRIAXONE 1 GM/50 ML FROZ.PIGGY IV (15:07)
[2018-03-04] MEDS: HYDROMORPHONE 1 MG INJ IV (15:07)
[2018-03-04] MEDS: KETOROLAC 60 MG/2 ML VIAL 30 MG IV (15:07)
[2018-03-04 15:17] VITALS: BP 111/61; PULSE 53; RESP 16; O2SAT 99
[2018-03-04] MEDS: SODIUM CHLORIDE 0.9% 1,000 ML 1000 ML IV (15:17)
--- NOTE | 2018-03-04 15:19 | PC.NURSE ---
also reports, anterior abdominal pain, very tender to touch,. with diarrhea x3 denies blood. was on keflex 10 days. denies fever at home, today feeling very tired.
[2018-03-04 15:26] LABS: Add Manual Diff / Slide Review NO; Basophils Percent Auto 0.8 % (0-2); Eosinophils Percent Auto 0.9 % (2-4); Hematocrit 38.2 % (36-46); Hemoglobin 12.9 g/dL (12.0-16.0); Lymphocytes Percent Auto 23.1 % (25-40); Mean Corpuscular HGB Conc 33.7 % (30-36); Mean Corpuscular Hemoglobin 32.4 PG (26-34); Mean Corpuscular Volume 96.2 fL (80-100); Monocytes Percent Auto 8.3 % (3-14); Neutrophils Absolute Auto 6000 /uL (1500-7000); Neutrophils Percent Auto 66.9 % (50-75); Platelet Count 332 X10^3/uL (150-400); Red Blood Cell Count 3.97 X10^6/uL (4.0-5.2); Red Cell Distribution Width 13.7 % (11.6-14.8)
[2018-03-04 15:37] LABS: Lactate (Lactic Acid) 1.1 mmol/L (0.7-2.1)
[2018-03-04 15:38] LABS: BUN Creatinine Ratio 14.3 (6-22); Blood Urea Nitrogen 10 mg/dL (7-17); Calcium 9.5 mg/dL (8.4-10.2); Carbon Dioxide 23 mmol/L (22-32); Chloride 107 mmol/L (98-107); Estimated Glomerular Filt Rate > 60.0 mL/min (>60); Glucose 69 mg/dL (70-100); HEMOLYSIS < 15 (0-50); Potassium 4.1 mmol/L (3.4-5.1); Sodium 142 mmol/L (137-145)
[2018-03-04] MEDS: HYDROCODONE/ACET 5/325 TABLET 2 TAB PO (16:22)
[2018-03-04 16:24] VITALS: BP 109/57; PULSE 50; RESP 16; O2SAT 100
--- NOTE | 2018-03-04 16:24 | PC.NURSE ---
dilaudid usually works, but with couple doses. provider made aware.
[2018-03-04 16:45] VITALS: BP 114/51; PULSE 52; RESP 18
== END 2018-03-04 17:48 | disposition home or self-care (01) ==
PROVIDERS: Emergency Medicine; Emergency Provider Internal Medicine; Family Provider Family Medicine; PCP Family Medicine
DX: N12 Tubulo-interstitial nephritis, not specified as acute or chronic (principal)
CPT/HCPCS: 36591; 80048; 81003; 81015; 81025; 83605; 85025; 87077; 87086; 96365; 96375; 99283; 99284; J1170; J1885; J2405

== ENCOUNTER → 2018-05-14 15:29 | Outpatient (CLI) | payer SELFPAY | LOC: LAB 15:29 | PROVIDERS: Family Provider Family Medicine; PCP Family Medicine; Visit Provider Physician Assistant | DX: J02.9 Acute pharyngitis, unspecified (principal) | CPT/HCPCS: 87070 ==

== ENCOUNTER → 2018-06-05 19:08 | Outpatient (CLI) | payer SELFPAY ==
[2018-06-06 02:02] LABS: Influenza A and B by PCR Rapid Negative (Negative)
== END ==
PROVIDERS: Family Provider Family Medicine; PCP Family Medicine; Visit Provider Physician Assistant
DX: R68.89 Other general symptoms and signs (principal)
CPT/HCPCS: 87400

== ENCOUNTER 2018-10-01 23:44 | Emergency (ER) | payer SELFPAY ==
[2018-10-01 23:53] VITALS: BP 136/96; PULSE 104; RESP 19; TEMP 36.8; O2SAT 99; BMI 19.7
[2018-10-01 23:59] LABS: Bilirubin Urine UA NEGATIVE (NEGATIVE); Glucose Urine UA NEGATIVE (Negative); Ketones Urine UA 1+ (NEGATIVE); Leukocyte Esterase Urine UA NEGATIVE (NEGATIVE); Nitrite Urine UA NEGATIVE (Negative); Occult Blood Urine UA 3+ (Negative); Protein Urine UA 3+ (Negative); Specific Gravity Urine UA >=1.030 (1.000-1.035)
[2018-10-02 00:03] LABS: Appearance Urine UA CLOUDY; Color Urine UA BROWN
[2018-10-02 00:04] LABS: RBC Urine >100/HPF (0-5/HPF)
[2018-10-02 00:05] LABS: Bacteria Urine Few (2-10); Mucus Urine 1+ (Negative); Squamous Epithelial Cell Urine 1-5 /HPF (0-5/HPF); WBC Urine 30-100/HPF (0-5/HPF)
[2018-10-02 00:06] LABS: Culture Indicated Urine Specimen Cultured
--- NOTE | 2018-10-02 00:08 | ED_ITS ---
HPI - General Adult General Chief complaint: Urogenital-Female Stated complaint: states has kidney infection Time Seen by Provider: 10/01/18 23:48 Source: patient Mode of arrival: ambulatory Limitations: no limitations History of Present Illness HPI narrative: 38-year-old female here for evaluation which she thinks is a urinary tract infection. Patient states she has had multiple urinary tract infections in the past. She states that within the past 2 weeks she had symptoms at home consistent with her prior infections. She has a course of Keflex that was given to her by her urologist to take if she develops symptoms and she took that ending it approximately 3 days ago. States that her symptoms had improved until the past 24 hours when they have returned again. She is also having blood in her urine. Generally not feeling very well. Nausea. Related Data Previous Rx's Medication Instructions Recorded levonorgestrel-ethinyl estradiol 1 tab PO QDAY #3 pac 01/31/18 0.1 mg-20 mcg tablet amoxicillin 500 mg capsule 500 mg PO BID #20 cap 06/05/18 levofloxacin [Levaquin] 750 mg PO DAILY 4 Days #4 tab 10/02/18 Allergies Allergy/AdvReac Type Severity Reaction Status Date / Time Sulfa (Sulfonamide Allergy Severe ANAPHYLACTI Verified 06/05/18 19:35 Antibiotics) C Review of Systems Constitutional Reports chills, Reports fever(s), Denies headache(s) and Reports lethargy ENT Ears, Nose, Mouth, and Throat: Denies vertigo and Denies headache(s) Cardiovascular Denies chest pain and Denies dyspnea Respiratory Denies dyspnea Gastrointestinal Gastrointestinal: Reports abdominal pain, Denies change in stool character, Reports nausea and Denies vomiting Genitourinary Reports hematuria, Reports dysuria, Reports urinary urgency and Denies vaginal discharge Integumentary/Breasts Denies rash Neurologic Denies vertigo and Denies headache(s) Hematologic/Lymphatic Denies easy bleeding and Denies easy bruising [facility] Medical History Chronic constipation (Chronic) Recurrent pyelonephritis (Chronic) Surgical History Status post dilation and curettage Status post tubal ligation Family History Brother Age: 25 Mental health problem Father Age: 60 Hypertension High cholesterol Mental health problem Grandmother Hypertension High cholesterol Mother Mental health problem Grandfather Heart disease Hypertension High cholesterol Stroke Grandmother Hypertension High cholesterol Social History Smoking Status: Unknown if ever smoked Social History Smoking Status: Unknown if ever smoked Exam Initial Vital Signs Initial Vital Signs: Vital Signs Temperature 98.3 F 10/01/18 23:53 Pulse Rate 104 H 10/01/18 23:53 Respiratory Rate 19 10/01/18 23:53 Blood Pressure 136/96 H 10/01/18 23:53 Pulse Oximetry 99 10/01/18 23:53 Const General: cooperative, comfortable, well developed, well groomed and No acute distress Orientation: alert, awake and oriented x3 Cardio Rate: tachycardic Rhythm: regular rhythm GI Inspection: non-distended Palpation: soft and tender (Lower abdomen) Skin Lesions: no lesions Rashes: no rashes Neuro General: alert, awake and oriented x3 Cognition: normal cognition Speech: speech normal Extrem General: normal to inspection and capillary refill normal Psych Appearance: grossly normal and well kempt Course Orders Ordered: ED Orders 10/01/18 23:40 UA Complete [Urinalysis and Microscopic] Stat Urine Culture Stat Discontinued Medications Hydrocodone Bitart/Acetaminophen ([place] 5/325) 1 tab PO NOW ONE Stop: 10/02/18 00:16 Last Admin: 10/02/18 00:30 Dose: 1 tab Hydrocodone Bitart/Acetaminophen (Vicodin Prepack) 1 bottle MISC SEEINSTR ONE Stop: 10/02/18 01:28 Last Admin: 10/02/18 01:38 Dose: 1 bottle Levofloxacin (Levaquin) 750 mg PO NOW ONE Stop: 10/02/18 00:16 Last Admin: 10/02/18 00:30 Dose: 750 mg Ondansetron HCl (Zofran Odt) 4 mg PO NOW ONE Stop: 10/02/18 00:16 Last Admin: 10/02/18 00:30 Dose: 4 mg Ondansetron HCl (Zofran Odt) 4 mg PO NOW ONE Stop: 10/02/18 00:36 Last Admin: 10/02/18 00:37 Dose: 4 mg Ondansetron HCl (Zofran Odt Prepack) 1 bottle MISC SEEINSTR ONE Stop: 10/02/18 01:28 Last Admin: 10/02/18 01:38 Dose: 1 bottle Vital Signs - 8 hr 10/01/18 23:53 10/02/18 01:45 Temperature 98.3 F Pulse Rate 104 H 99 H Respiratory Rate 19 Blood Pressure 136/96 H 133/97 H Pulse Oximetry 99 98 Medical Decision Making Lab Data Lab results reviewed: Yes I reviewed the patient's lab results. Lab Results 10/01/18 Range/Units 23:40 Urine Color Brown Urine Appearance Cloudy Urine pH 6.0 (4.5-8.0) Ur Specific [place] >=1.030 H (1.000-1.035) Urine Protein 3+ H (Negative) Urine Glucose (UA) Negative (Negative) g/dL Urine Ketones 1+ H (NEGATIVE) Urine Occult Blood 3+ H (Negative) Urine Nitrate Negative (Negative) Urine Bilirubin Negative (NEGATIVE) Urine Urobilinogen 1.0 (0.2) E.U./dL Ur Leukocyte Esterase Negative (NEGATIVE) Urine RBC >100/hpf H (0-5/HPF) Urine WBC 30-100/hpf H (0-5/HPF) Ur Squamous Epith Cells 1-5 /hpf D (0-5/HPF) Urine Bacteria Few (2-10) H (None) Urine Mucus 1+ H (Negative) Ur Culture Indicated? Specimen cultured MDM Narrative Medical decision making narrative: Urinalysis today is consistent with a urinary tract infection. She states that she has either given Keflex her Levaquin and given the fact that she has just been on a course of Keflex will prescribed her Levaquin here. She was given a dose along with pain medication and nausea medication. She did have some vomiting afterwards however did not vomit up the pills. Prescription for the remaining portion of the Levaquin. She was given return precautions and follow-up instructions. She expressed understanding and agreement with plan Discharge Plan Departure Patient Disposition: Home Clinical Impression: Urinary tract infection Qualifiers: Urinary tract infection type: acute cystitis Hematuria presence: with hematuria Qualified Code(s): N30.01 - Acute cystitis with hematuria Discharge Date/Time: 10/02/18 01:48 Interventions: ED Discharge Assessment Last Done: 10/02/18 01:45 Instructions: DI for Urinary Tract Infection (UTI) Activity Restrictions/Additional Instructions: Your 1st dose of antibiotics was given here in the emergency department. Her next dose will be later in the day on 10/02/18. Should increase her fluid intake. Return to the emergency department for any new or worsening symptoms Prescriptions: New levofloxacin [Levaquin] 750 mg tablet 750 mg PO DAILY 4 Days Qty: 4 RF: 0 No Action amoxicillin 500 mg capsule 500 mg PO BID Qty: 20 RF: 0 levonorgestrel-ethinyl estrad [Aviane] 0.1-20 mg-mcg tablet 1 tab PO QDAY Qty: 3 RF: 3 Referrals: Frida Johnson MD [Primary Care Provider] -
[2018-10-02] MEDS: HYDROCODONE/ACET 5/325 TABLET 1 TAB PO (00:30)
[2018-10-02] MEDS: ONDANSETRON 4 MG ODT PO ×2 (00:30→00:37)
[2018-10-02] MEDS: levoFLOXacin 250 MG TABLET 750 MG PO (00:30)
[2018-10-02] MEDS: ONDANSETRON 4 MG ODT PREPACK 1 BOTTLE MISC (01:38)
[2018-10-02] MEDS: HYDROCODONE/ACET 5/325 PREPACK 1 BOTTLE MISC (01:38)
[2018-10-02 01:45] VITALS: BP 133/97; PULSE 99; O2SAT 98
== END 2018-10-02 01:48 | disposition home or self-care (01) ==
PROVIDERS: Emergency Provider Emergency Medicine; Family Provider Family Medicine; PCP Family Medicine
DX: N30.01 Acute cystitis with hematuria (principal)
CPT/HCPCS: 81001; 87086; 99282; 99283

== ENCOUNTER 2018-10-10 18:07 | Emergency (ER) | payer SELFPAY ==
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
[2018-10-10 18:13] VITALS: BP 125/87; PULSE 115; RESP 22; TEMP 37.9; O2SAT 96; BMI 19.7
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
[2018-10-10] MEDS: KETOROLAC 60 MG/2 ML VIAL 30 MG IV (18:40)
--- NOTE | 2018-10-10 18:49 | PC.NURSE ---
PIV placed, rainbow labs drawn, labelled after 2 ID check with pt, conveyed to lab via tube system
--- NOTE | 2018-10-10 18:49 | PC.NURSE ---
pt to CT with tech on stretcher
[2018-10-10] MEDS: MORPHINE 2 MG/ML INJ IV (19:29)
[2018-10-10 19:51] VITALS: BP 130/87; PULSE 74; RESP 17; O2SAT 100
[2018-10-10] MEDS: OXYCODONE/ACETAMINOPHEN 5/325 TABLET 1 TAB PO (19:54)
[2018-10-10 20:03] LABS: WBC Urine None Seen (0-5/HPF)
[2018-10-10 20:11] LABS: Bacteria Urine Few (2-10); Culture Indicated Urine Cult Not Indicated; RBC Urine 5-10/HPF (0-5/HPF); Squamous Epithelial Cell Urine >30 /HPF (0-5/HPF)
[2018-10-10] MEDS: SODIUM CHLORIDE 0.9% 1,000 ML 1000 ML IV (20:36)
[2018-10-10] MEDS: CEFTRIAXONE 1 GM/50 ML FROZ.PIGGY IV (20:36)
[2018-10-10] MEDS: OXYCODONE/APAP 5/325 PREPACK 1 BOTTLE MISC (21:16)
[2018-10-10 21:23] VITALS: BP 119/76; PULSE 74; RESP 16; TEMP 36.7; O2SAT 100
== END 2018-10-10 21:24 | disposition home or self-care (01) ==
PROVIDERS: Emergency Provider Nurse Practitioner; Family Provider Family Medicine; PCP Family Medicine
DX: S42.002A Fracture of unspecified part of left clavicle, initial encounter for closed fracture (principal); M54.2 Cervicalgia; R51 Headache; N30.01 Acute cystitis with hematuria; V47.5XXA Car driver injured in collision with fixed or stationary object in traffic accident, initial encounter
CPT/HCPCS: 36591; 71101; 72125; 73000; 73030; 81003; 81015; 96365; 96375; 99283; 99284; J1885; J2270

== ENCOUNTER 2019-04-07 18:36 | Emergency (ER) | payer SELFPAY ==
[2019-04-07 18:43] VITALS: PULSE 89; RESP 16; TEMP 36.3; O2SAT 98; BMI 20.5
--- NOTE | 2019-04-07 18:54 | ED.ABDPAIN ---
HPI - Abdominal Pain General Chief Complaint: Abdominal Pain Stated Complaint: ABD PAIN Time Seen by Provider: 04/07/19 18:53 Source: patient Mode of arrival: Ambulatory Limitations: no limitations History of Present Illness HPI narrative: This is a 38-year-old comes to the emergency department with complaint of right lower abdominal pain that started about 5:00 a.m. this morning. Patient states that sharp and constant throughout the day. Patient states it's been slowly worsening. 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 She has not had fevers she has had nausea but no vomiting. She had normal bowel movement earlier today. She has not any black or blood or diarrhea. Patient has not had any constipation. She has felt bloated. She has not felt like eating much today. She denies any dysuria, frequency, urgency or hesitancy. Patient has a history of both fallopian tubes being removed but does still have her ovaries and uterus. She has had a right ovarian cyst in the past but states that felt different. She has also had kidney infections in the past but states they did not feel similar. Some very mild discomfort up in her right flank yesterday. She denies any fevers or chills. She denies any other abdominal surgeries. No regular daily medications. She states she has allergies to sulfa. Related Data Previous Rx's Medication Instructions Recorded levonorgestrel-ethinyl estradiol 1 tab PO QDAY #3 pac 01/31/18 0.1 mg-20 mcg tablet amoxicillin 500 mg capsule 500 mg PO BID #20 cap 06/05/18 oxycodone-acetaminophen [Percocet] 1 tab PO Q4-6H PRN #10 tab 10/10/18 hydrocodone-acetaminophen [[place]] 1 tab PO Q6H PRN #7 tab 04/07/19 Allergies Allergy/AdvReac Type Severity Reaction Status Date / Time Sulfa (Sulfonamide Allergy Severe ANAPHYLACTI Verified 06/05/18 19:35 Antibiotics) C Review of Systems Review of Systems ROS Unobtainable: All systems reviewed & are unremarkable except as noted in HPI and below Patient History Medical History Chronic constipation (Chronic) Recurrent pyelonephritis (Chronic) Surgical History Status post dilation and curettage Status post tubal ligation Family History Brother Age: 26 Mental health problem Father Age: 61 Hypertension High cholesterol Mental health problem Grandmother Hypertension High cholesterol Mother Mental health problem Grandfather Heart disease Hypertension High cholesterol Stroke Grandmother Hypertension High cholesterol Social History Smoking Status: Current every day smoker Smoking Status: Current every day smoker alcohol intake frequency: a few times a week Substance Use Type: marijuana Exam Narrative Exam Narrative: GENERAL: Alert and oriented x three, thin, well-appearing female in mild distress. HEENT: Head normocephalic, atraumatic, EOMI, pupils reactive, face symmetric, moist mucous membranes NECK: Supple, full range of motion CARDIOVASCULAR: Regular rate and rhythm without murmurs, rubs or gallops. RESPIRATORY: Breath sounds equal bilaterally, no wheezes rales or rhonchi. ABDOMEN: Soft, moderate right lower quadrant tenderness. Normoactive bowel sounds all 4 quadrants. No guarding or rebound, no rigidity, no mass, no hernia noted. : No CVA tenderness EXTREMITIES: Normal range of motion, no clubbing or edema. Neurovascularly intact NEUROLOGICAL: Cranial nerves II through XII grossly intact. Moving all extremities SKIN: Warm, dry, no petechiae, no rashes or lesions. Initial Vital Signs Initial Vital Signs: Vital Signs Temperature 97.4 F L 04/07/19 18:43 Pulse Rate 89 04/07/19 18:43 Respiratory Rate 16 04/07/19 18:43 Pulse Oximetry 98 04/07/19 18:43 Course Orders Ordered: ED Orders 04/07/19 19:02 CT abdomen pelvis w con Stat 04/07/19 19:08 Test Urine Stat Urine Microscopic Stat 04/07/19 19:20 Complete Blood Count AUTO DIFF Stat Comprehensive Metabolic Panel Stat Lipase Stat Partial Thromboplastin Time Stat Prothrombin Time INR Stat Discontinued Medications Hydrocodone Bitart/Acetaminophen (Vicodin 5/325 Prepack) 1 bottle MISC SEEINSTR ONE Stop: 04/07/19 20:50 Last Admin: 04/07/19 21:04 Dose: 1 bottle Documented by: LATONYA Sodium Chloride (Normal Saline 0.9%) 1,000 mls @ 1,000 mls/hr IV BOLUS ONE Stop: 04/07/19 20:01 Last Infusion: 04/07/19 20:42 Dose: 0 mls/hr Documented by: Admin: 04/07/19 19:21 Dose: 1,000 mls/hr Documented by: LATONYA Ketorolac Tromethamine (Toradol) 30 mg IV NOW ONE Stop: 04/07/19 19:03 Last Admin: 04/07/19 19:26 Dose: 30 mg Documented by: LATONYA Morphine Sulfate (Morphine) 4 mg IV NOW ONE Stop: 04/07/19 20:08 Last Admin: 04/07/19 20:42 Dose: 4 mg Documented by: LATONYA Ondansetron HCl (Zofran) 4 mg IV NOW ONE Stop: 04/07/19 19:03 Last Admin: 04/07/19 19:26 Dose: 4 mg Documented by: LATONYA Vital Signs Vital signs: Vital Signs - 8 hr 04/07/19 18:43 Temperature 97.4 F L Pulse Rate 89 Respiratory Rate 16 Pulse Oximetry 98 MDM - Abdominal Pain Lab Data Attestation: I reviewed the patient's lab results. Result diagrams: 04/07/19 19:20 04/07/19 19:20 Labs: Lab Results 04/07/19 04/07/19 04/07/19 Range/Units 19:08 19:08 19:20 WBC 9.1 (4.5-11.0) X10^3/uL RBC 3.89 L (4.0-5.2) X10^6/uL Hgb 12.9 (12.0-16.0) g/dL Hct 37.1 (36-46) % MCV 95.4 (80-100) fL MCH 33.2 (26-34) PG MCHC 34.8 (30-36) % RDW 12.4 (11.6-14.8) % Plt Count 286 (150-400) X10^3/uL Neut % (Auto) 56.3 (50-75) % Lymph % (Auto) 30.6 (25-40) % Edgar % (Auto) 9.9 (3-14) % Eos % (Auto) 2.4 (2-4) % Baso % (Auto) 0.8 (0-2) % Neut # (Auto) 5100 (0210-3324) /uL Lymph # (Auto) 2800 (1380-8095) /uL Edgar # (Auto) 900 (0-900) /uL Eos # (Auto) 200 (0-450) /uL Baso # (Auto) 100 (0-100) /uL PT (10.1-12.7) SECONDS INR (0.9-1.3) APTT (26.4-36.2) SECONDS Sodium (137-145) mmol/L Potassium (3.4-5.1) mmol/L Chloride (98-107) mmol/L Carbon Dioxide (22-32) mmol/L BUN (7-17) mg/dL Creatinine (0.52-1.04) mg/dL Estimated GFR (>60) mL/min BUN/Creatinine Ratio (6-22) Glucose (70-100) mg/dL Calcium (8.4-10.2) mg/dL Total Bilirubin (0.2-1.3) mg/dL AST (14-36) IU/L ALT (<35) IU/L Alkaline Phosphatase (38-126) U/L Total Protein (6.3-8.2) g/dL Albumin (3.5-5.0) g/dL Globulin (1.7-4.1) g/dL Albumin/Globulin Ratio (1.0-2.8) Lipase (23-300) U/L Urine RBC 0-1/hpf (0-5/HPF) Urine WBC 0-1/hpf (0-5/HPF) Ur Squamous Epith Cells 5-10 /hpf H (0-5/HPF) Amorphous Sediment 2+ Urine Bacteria None seen (None) Urine Mucus 1+ H (Negative) Ur Culture Indicated? Cult not indicated Urine Test Negative (Negative) 04/07/19 04/07/19 Range/Units 19:20 19:20 WBC (4.5-11.0) X10^3/uL RBC (4.0-5.2) X10^6/uL Hgb (12.0-16.0) g/dL Hct (36-46) % MCV (80-100) fL MCH (26-34) PG MCHC (30-36) % RDW (11.6-14.8) % Plt Count (150-400) X10^3/uL Neut % (Auto) (50-75) % Lymph % (Auto) (25-40) % Edgar % (Auto) (3-14) % Eos % (Auto) (2-4) % Baso % (Auto) (0-2) % Neut # (Auto) (6721-5804) /uL Lymph # (Auto) (1143-8630) /uL Edgar # (Auto) (0-900) /uL Eos # (Auto) (0-450) /uL Baso # (Auto) (0-100) /uL PT 10.4 (10.1-12.7) SECONDS INR 0.9 (0.9-1.3) APTT 27 (26.4-36.2) SECONDS Sodium 139 (137-145) mmol/L Potassium 3.8 (3.4-5.1) mmol/L Chloride 105 (98-107) mmol/L Carbon Dioxide 24 (22-32) mmol/L BUN 14 (7-17) mg/dL Creatinine 0.60 (0.52-1.04) mg/dL Estimated GFR > 60.0 (>60) mL/min BUN/Creatinine Ratio 23.3 H (6-22) Glucose 81 (70-100) mg/dL Calcium 9.9 (8.4-10.2) mg/dL Total Bilirubin 0.4 (0.2-1.3) mg/dL AST 24 (14-36) IU/L ALT 14 (<35) IU/L Alkaline Phosphatase 49 (38-126) U/L Total Protein 7.3 (6.3-8.2) g/dL Albumin 4.2 (3.5-5.0) g/dL Globulin 3.1 (1.7-4.1) g/dL Albumin/Globulin Ratio 1.4 (1.0-2.8) Lipase 164 (23-300) U/L Urine RBC (0-5/HPF) Urine WBC (0-5/HPF) Ur Squamous Epith Cells (0-5/HPF) Amorphous Sediment Urine Bacteria (None) Urine Mucus (Negative) Ur Culture Indicated? Urine Test (Negative) Point of care testing: Urine Dip Bedside Urine Glucose Negative Bedside Urine Bilirubin - Negative Bedside Urine Ketone - Negative Urine Specific [place] 1.025 Bedside Urine Occult Blood +/- Bedside Urine pH 6.0 Bedside Urine Protein +/- 15 Bedside Urine Urobilinogen +/- 1mg Bedside Urine Nitrite - Negative Bedside Urine Leukocytes - Negative Esterase Imaging Data CT scan - abdomen/pelvis: Radiologist's Impression: [address] [address] [address] Scan Report Signed Patient: Fay Mcnair [facility]#: [id number] : 1980Acct:[id number] Age/Sex: 38 / FDate of Service: 04/07/19 Loc: ED Accession Number: [id number] Procedure: CT abdomen pelvis w con Ordering Provider: Kelin Rao D.O. PROCEDURE: CT ABDOMEN PELVIS W CON INDICATIONS: RLQ pain TECHNIQUE: After the administration of intravenous contrast, 5 mm thick sections acquired from the diaphragm to the symphysis. 5 mm coronal and sagittal reformats were acquired. For radiation dose reduction, the following was used: automated exposure control, adjustment of mA and/or kV according to patient size. COMPARISON: [facility], CT, ABDOMEN/PELVIS WITH CONTRAST, 06/24/2017, 22:38. FINDINGS: Image quality: Excellent. ABDOMEN: Lung bases: Lung bases are clear. Heart size is normal. Solid organs: Liver is normal in size and enhancement. Gallbladder is completely decompressed and a non-inflamed. Biliary system is non dilated. Pancreas enhances normally. Spleen is normal in size and enhancement. No adrenal nodules. Kidneys demonstrate normal size and enhancement, without hydronephrosis. Peritoneum and bowel: Bowel loops demonstrate normal wall thickness and caliber. The appendix appears normal. No free fluid or air. Nodes and vessels: No retroperitoneal or mesenteric adenopathy by size criteria. Aorta and inferior vena cava are normal in size. Miscellaneous: No ventral hernias. PELVIS: Genitourinary: Bladder wall thickness is normal. There is a peripherally hypervascular, partially including 2.3 cm cystic structure associated with the right ovary. Left ovary appears normal. Uterine morphology is normal. The cervix is mildly prominent and there is a trace amount of fluid surrounding the cervix. Miscellaneous: No inguinal hernias or adenopathy. Bones: No suspicious bony lesions. No vertebral body compression fractures. IMPRESSION: 1. Normal appendix. 2. Peripherally hypervascular, including right ovarian corpus luteum cyst. 3. Mildly prominent cervix with trace cul-de-sac fluid. This may be physiologic for the patient but also can be seen in the setting of pelvic inflammatory disease. Clinical correlation is recommended. 4. No evidence of pyelonephritis. Dictated by: Melvina Roy M.D. on 04/07/2019 at 20:10 Approved by: Melvina Roy M.D. on 04/07/2019 at 20:18 [facility] Narrative Medical decision making narrative: Patient comes in with complaint of right lower quadrant pain for 14 hours which has been worsening. She has had nausea. But no vomiting. She has also had normal bowel movement earlier today. She has had a history of ovarian cyst and pyelonephritis although her urine does not show any obvious signs of infection today it was sent for microscopy. Patient is tender in her right lower quadrant but not exquisitely so with no rebound. Patient has right ovarian cyst, mildly prominent cervix. Patient case discussed with radiology, Dr. Roy. Patient having worsening pain and given second dose of pain medication. Discussed findings with patient. Patient and I discussed doing a pelvic exam but she has not had any vaginal discharge. She also states she has stopped her oral contraceptives month and that was in order to keep her from developing cyst as she has had multiple in the past. Patient states that she ran of control because she did not have a refill and had to see her physician in order to get a Pap smear. I deferred the refilling her oral contraceptives so she will follow up with her primary care and get her Pap smear. Patient is comfortable with this plan will do a short course of narcotic pain medication and she will call to follow up with Dr. Beckham tomorrow. We did discuss strict return precautions as there's always potential for other causes and that she did have a little bit of change to her cervix so there's always potential for infection that could be causing her symptoms although her labs and other exam more consistent with ovarian cyst. Discharge Plan Departure Patient Disposition: Home Clinical Impression: Cyst of right ovary Instructions: DI for Ovarian Cyst Activity Restrictions/Additional Instructions: Follow up with Dr. Beckham for recheck and to refill your oral contraceptives, call tomorrow for an appointment. Take pain medication as prescribed, this medication can make you sleepy do not drive, perform hazardous activities or make any major decisions while taking it. Your prescription was sent to [facility] in [place]. Return to the ER for fevers greater 100.4 F, rapidly worsening pain, lightheadedness, passing out, persistent vomiting, black or bloody stools, new vaginal discharge or bleeding or other new or concerning symptoms. Prescriptions: New hydrocodone-acetaminophen [[place]] 5-325 mg tablet 1 tab PO Q6H PRN (Reason: pain) Qty: 7 RF: 0 No Action amoxicillin 500 mg capsule 500 mg PO BID Qty: 20 RF: 0 levonorgestrel-ethinyl estrad [[place]] 0.1-20 mg-mcg tablet 1 tab PO QDAY Qty: 3 RF: 3 oxycodone-acetaminophen [Percocet] 5-325 mg tablet 1 tab PO Q4-6H PRN (Reason: pain) Qty: 10 RF: 0 Referrals: Peyton Beckham MD [Physician] - Frida oJhnson MD [Primary Care Provider] -
--- NOTE | 2019-04-07 19:02 | DI.CT.S_ITS ---
PROCEDURE: CT ABDOMEN PELVIS W CON INDICATIONS: RLQ pain TECHNIQUE: After the administration of intravenous contrast, 5 mm thick sections acquired from the diaphragm to the symphysis. 5 mm coronal and sagittal reformats were acquired. For radiation dose reduction, the following was used: automated exposure control, adjustment of mA and/or kV according to patient size. COMPARISON: [facility], CT, ABDOMEN/PELVIS WITH CONTRAST, 06/24/2017, 22:38. FINDINGS: Image quality: Excellent. ABDOMEN: Lung bases: Lung bases are clear. Heart size is normal. Solid organs: Liver is normal in size and enhancement. Gallbladder is completely decompressed and a non-inflamed. Biliary system is non dilated. Pancreas enhances normally. Spleen is normal in size and enhancement. No adrenal nodules. Kidneys demonstrate normal size and enhancement, without hydronephrosis. Peritoneum and bowel: Bowel loops demonstrate normal wall thickness and caliber. The appendix appears normal. No free fluid or air. Nodes and vessels: No retroperitoneal or mesenteric adenopathy by size criteria. Aorta and inferior vena cava are normal in size. Miscellaneous: No ventral hernias. PELVIS: Genitourinary: Bladder wall thickness is normal. There is a peripherally hypervascular, partially including 2.3 cm cystic structure associated with the right ovary. Left ovary appears normal. Uterine morphology is normal. The cervix is mildly prominent and there is a trace amount of fluid surrounding the cervix. Miscellaneous: No inguinal hernias or adenopathy. Bones: No suspicious bony lesions. No vertebral body compression fractures. IMPRESSION: 1. Normal appendix. 2. Peripherally hypervascular, including right ovarian corpus luteum cyst. 3. Mildly prominent cervix with trace cul-de-sac fluid. This may be physiologic for the patient but also can be seen in the setting of pelvic inflammatory disease. Clinical correlation is recommended. 4. No evidence of pyelonephritis. Dictated by: Melvina Roy M.D. on 04/07/2019 at 20:10 Approved by: Melvina Roy M.D. on 04/07/2019 at 20:18
[2019-04-07 19:12] LABS: Bacteria Urine None Seen
[2019-04-07 19:15] LABS: Pregnancy Test Urine Negative (Negative)
[2019-04-07] MEDS: SODIUM CHLORIDE 0.9% 1,000 ML 1000 ML IV (19:21)
[2019-04-07 19:25] VITALS: BP 121/69; PULSE 65; RESP 16; O2SAT 100
[2019-04-07 19:25] LABS: Amorphous Sediment Urine 2+; RBC Urine 0-1/HPF (0-5/HPF); Squamous Epithelial Cell Urine 5-10 /HPF (0-5/HPF); WBC Urine 0-1/HPF (0-5/HPF)
[2019-04-07 19:26] LABS: Add Manual Diff / Slide Review NO; Basophils Absolute Auto 100 /uL (0-100); Basophils Percent Auto 0.8 % (0-2); Eosinophils Absolute Auto 200 /uL (0-450); Eosinophils Percent Auto 2.4 % (2-4); Hematocrit 37.1 % (36-46); Hemoglobin 12.9 g/dL (12.0-16.0); Lymphocytes Absolute Auto 2800 /uL (1100-4500); Lymphocytes Percent Auto 30.6 % (25-40); Mean Corpuscular HGB Conc 34.8 % (30-36); Mean Corpuscular Hemoglobin 33.2 PG (26-34); Mean Corpuscular Volume 95.4 fL (80-100); Monocytes Absolute Auto 900 /uL (0-900); Monocytes Percent Auto 9.9 % (3-14); Neutrophils Absolute Auto 5100 /uL (1500-7000); Neutrophils Percent Auto 56.3 % (50-75); Platelet Count 286 X10^3/uL (150-400); Red Blood Cell Count 3.89 X10^6/uL (4.0-5.2); Red Cell Distribution Width 12.4 % (11.6-14.8); White Blood Cell Count 9.1 X10^3/uL (4.5-11.0)
[2019-04-07 19:26] LABS: Culture Indicated Urine Cult Not Indicated; Mucus Urine 1+ (Negative)
[2019-04-07] MEDS: KETOROLAC 60 MG/2 ML VIAL 30 MG IV (19:26)
[2019-04-07] MEDS: ONDANSETRON 4 MG/2 ML INJ IV (19:26)
[2019-04-07 19:34] LABS: INR 0.9 (0.9-1.3); Prothrombin Time 10.4 SECONDS (10.1-12.7)
[2019-04-07 19:36] LABS: PTT Partial Thromboplastin Tim 27 SECONDS (26.4-36.2)
[2019-04-07 19:39] LABS: Alanine Aminotransferase 14 IU/L (<35); Albumin 4.2 g/dL (3.5-5.0); Albumin Globulin Ratio 1.4 (1.0-2.8); Alkaline Phosphatase 49 U/L (38-126); Aspartate Aminotransferase 24 IU/L (14-36); BUN Creatinine Ratio 23.3 (6-22); Bilirubin Total 0.4 mg/dL (0.2-1.3); Blood Urea Nitrogen 14 mg/dL (7-17); Calcium 9.9 mg/dL (8.4-10.2); Carbon Dioxide 24 mmol/L (22-32); Chloride 105 mmol/L (98-107); Estimated Glomerular Filt Rate > 60.0 mL/min (>60); Globulin 3.1 g/dL (1.7-4.1); Glucose 81 mg/dL (70-100); HEMOLYSIS 16 (0-50); Lipase 164 U/L (23-300); Potassium 3.8 mmol/L (3.4-5.1); Sodium 139 mmol/L (137-145); Total Protein 7.3 g/dL (6.3-8.2)
[2019-04-07 20:40] VITALS: BP 124/69; PULSE 77; RESP 17; O2SAT 100
[2019-04-07] MEDS: MORPHINE 4 MG/ML INJ IV (20:42)
[2019-04-07] MEDS: HYDROCODONE/ACET 5/325 PREPACK 1 BOTTLE MISC (21:04)
[2019-04-07 21:10] VITALS: BP 111/65; PULSE 67; RESP 15; O2SAT 99
== END 2019-04-07 21:22 | disposition home or self-care (01) ==
PROVIDERS: Emergency Provider Emergency Medicine; Family Provider Family Medicine; PCP Family Medicine
DX: N83.201 Unspecified ovarian cyst, right side (principal)
CPT/HCPCS: 36415; 74177; 80053; 81003; 81015; 81025; 83690; 85025; 85610; 85730; 96361; 96374; 96375; 99284; J1885; J2270; J2405

== ENCOUNTER 2020-06-10 18:36 | Emergency (ER) | payer OTHER, MEDICAID, SELFPAY ==
[2020-06-10] VITALS (8 sets, daily range): BP systolic 110–123; BP diastolic 72–79; PULSE 60–96; RESP 14–18; TEMP 36.3; O2SAT 99–100; BMI 22.3
[2020-06-10 19:10] LABS: Add Manual Diff / Slide Review NO; Basophils Absolute Auto 100 /uL (0-100); Basophils Percent Auto 0.9 % (0-2); Eosinophils Absolute Auto 300 /uL (0-450); Eosinophils Percent Auto 2.7 % (2-4); Hematocrit 39.9 % (36-46); Hemoglobin 13.7 g/dL (12.0-16.0); Lymphocytes Absolute Auto 3000 /uL (1100-4500); Lymphocytes Percent Auto 30.1 % (25-40); Mean Corpuscular HGB Conc 34.2 % (30-36); Mean Corpuscular Hemoglobin 32.6 PG (26-34); Mean Corpuscular Volume 95.3 fL (80-100); Monocytes Absolute Auto 900 /uL (0-900); Monocytes Percent Auto 8.9 % (3-14); Neutrophils Absolute Auto 5800 /uL (1500-7000); Neutrophils Percent Auto 57.4 % (50-75); Platelet Count 361 X10^3/uL (150-400); Red Blood Cell Count 4.19 X10^6/uL (4.0-5.2); Red Cell Distribution Width 12.6 % (11.6-14.8); White Blood Cell Count 10.1 X10^3/uL (4.5-11.0)
--- NOTE | 2020-06-10 19:10 | DI.US.S_ITS ---
PROCEDURE: US PELVIC COMPLETE INDICATIONS: PAIN TECHNIQUE: Real-time scanning was performed of the pelvic organs, with image documentation. Additional endovaginal scanning was necessary due to incomplete visualization of the adnexal and endometrial structures by transabdominal scanning. COMPARISON: [facility], , PELVIC COMPLETE, 06/24/2017, 21:18. FINDINGS: Uterus: Uterus is normal in size at 9.0 x 4.1 x 5.1 cm. The endometrium measures 4.8 mm in combined thickness. Ovaries: Right ovary measures 3.3 x 1.7 x 1.2 cm. Left ovary measures 3.2 x 1.9 x 2.1 cm. Other: No pathologic free abdominal or pelvic fluid. Appendix is not definitively identified. IMPRESSION: Unremarkable exam. Dictated by: Lillie Calvo M.D. on 06/10/2020 at 21:15 Approved by: Lillie Calvo M.D. on 06/10/2020 at 21:16
[2020-06-10] MEDS: KETOROLAC 60 MG/2 ML VIAL 30 MG IV (19:13)
[2020-06-10 19:33] LABS: Alanine Aminotransferase 21 IU/L (<35); Albumin 4.6 g/dL (3.5-5.0); Albumin Globulin Ratio 1.4 (1.0-2.8); Alkaline Phosphatase 56 U/L (38-126); Aspartate Aminotransferase 28 IU/L (14-36); BUN Creatinine Ratio 23.2 (6-22); Bilirubin Total 0.7 mg/dL (0.2-1.3); Blood Urea Nitrogen 16 mg/dL (7-17); Calcium 9.2 mg/dL (8.4-10.2); Carbon Dioxide 23 mmol/L (22-32); Chloride 106 mmol/L (98-107); Estimated Glomerular Filt Rate > 60.0 mL/min (>60); Globulin 3.3 g/dL (1.7-4.1); Glucose 75 mg/dL (70-100); HEMOLYSIS < 15 (0-50); Potassium 3.8 mmol/L (3.4-5.1); Sodium 140 mmol/L (137-145); Total Protein 7.9 g/dL (6.3-8.2)
--- NOTE | 2020-06-10 21:49 | ED.GENADULT ---
HPI - General Adult General Chief complaint: Vaginal Bleeding Stated complaint: RAPTURE CYST Time Seen by Provider: 06/10/20 21:45 Source: patient Mode of arrival: Ambulatory Limitations: no limitations History of Present Illness HPI narrative: Patient is a 39-year-old female who has had ovarian cysts in the past here for evaluation of bilateral lower abdominal tenderness. She does describe a right side greater than the left. She states that yesterday morning she felt a ?pop? in her lower abdomen. She started to have pain afterwards. She thought that this was an ovarian cyst however her symptoms have worsened since then. She is also now having vaginal bleeding where she needs to change her tampon multiple times. She has had a tubal ligation in the past. No other abdominal surgeries. Has not tried anything for symptoms prior to arrival. Related Data Previous Rx's Medication Instructions Recorded levonorgestrel-ethinyl estradiol 1 tab PO QDAY #3 pac 01/31/18 0.1 mg-20 mcg tablet amoxicillin 500 mg capsule 500 mg PO BID #20 cap 06/05/18 oxycodone-acetaminophen [Percocet] 1 tab PO Q4-6H PRN #10 tab 10/10/18 hydrocodone-acetaminophen [[place]] 1 tab PO Q6H PRN #7 tab 04/07/19 Allergies Allergy/AdvReac Type Severity Reaction Status Date / Time Sulfa (Sulfonamide Allergy Severe ANAPHYLACTI Verified 06/10/20 18:49 Antibiotics) C Review of Systems Constitutional Constitutional: Denies fever(s) Cardiovascular Cardiovascular: Denies chest pain and Denies dyspnea Respiratory Respiratory: Denies dyspnea Gastrointestinal Gastrointestinal: Reports abdominal pain, Denies change in bowel habits, Reports nausea and Denies vomiting Genitourinary Genitourinary: Denies dysuria Genitourinary: Denies dysuria and Reports vaginal discharge Musculoskeletal Musculoskeletal: Denies arthralgias and Denies myalgias Integumentary/Breasts Skin/Breast: Denies lesions and Denies rash Neurologic Neurologic: Denies behavioral changes Psychiatric Psychiatric: Denies anxiety and Denies behavioral changes Hematologic/Lymphatic On Anticoagulants: No Allergic/Immunologic Allergic/Immunologic: Denies urticaria Patient History Medical History Chronic constipation Recurrent pyelonephritis Surgical History Status post dilation and curettage Status post tubal ligation Family History Brother Age: 27 Mental health problem Father Age: 62 Hypertension High cholesterol Mental health problem Grandmother Hypertension High cholesterol Mother Mental health problem Grandfather Heart disease Hypertension High cholesterol Stroke Grandmother Hypertension High cholesterol Social History Smoking Status: Current every day smoker Smoking Status: Current every day smoker alcohol intake frequency: a few times a week Substance Use Type: marijuana Exam Initial Vital Signs Initial Vital Signs: Vital Signs Temperature 97.3 F L 06/10/20 18:49 Pulse Rate 96 H 06/10/20 18:49 Respiratory Rate 18 06/10/20 18:49 Blood Pressure 113/73 06/10/20 18:49 Pulse Oximetry 100 06/10/20 18:49 Const General: cooperative Limitations: mental status not altered HENMT Head: normal to inspection and normocephalic Resp Effort & Inspection: normal respiratory effort Auscultation: clear to auscultation bilaterally Cardio Rate: regular rate Rhythm: regular rhythm GI Inspection: non-distended Palpation: soft, guarding and tender (Bilateral lower abdomen right greater than left) Back/Spine/Pelvis Back: No CVA tenderness Skin Lesions: no lesions Rashes: no rashes Neuro General: patient alert and patient awake Cognition: normal cognition Speech: speech normal Extrem General: normal to inspection and capillary refill normal Psych Appearance: grossly normal and well kempt Course Orders Ordered: ED Orders 06/10/20 21:50 CT abdomen pelvis w con Stat Discontinued Medications Sodium Chloride (Normal Saline 0.9%) 1,000 mls @ 1,000 mls/hr IV BOLUS ONE Stop: 06/10/20 22:48 Last Infusion: 06/10/20 23:15 Dose: 0 mls/hr Documented by: Admin: 06/10/20 21:56 Dose: 1,000 mls/hr Documented by: ANITA Ketorolac Tromethamine (Ketorolac 60 Mg/2 Ml Vial) 30 mg IV NOW ONE Stop: 06/10/20 19:10 Last Admin: 06/10/20 19:13 Dose: 30 mg Documented by: ADITYA Morphine Sulfate (Morphine 4 Mg/Ml Inj) 4 mg IV NOW ONE Stop: 06/10/20 21:50 Last Admin: 06/10/20 21:57 Dose: 4 mg Documented by: CVANCE Vital Signs Vital signs: Vital Signs - 8 hr 06/10/20 21:30 06/10/20 21:35 06/10/20 22:00 Pulse Rate 86 93 H 66 Respiratory Rate 14 Blood Pressure 110/79 110/79 Pulse Oximetry 100 100 99 06/10/20 22:01 06/10/20 22:30 06/10/20 23:00 Pulse Rate 68 66 60 Respiratory Rate Blood Pressure 110/72 Pulse Oximetry 100 100 100 06/10/20 23:21 Pulse Rate 64 Respiratory Rate 18 Blood Pressure 123/74 Pulse Oximetry 100 Medical Decision Making Lab Data Lab results reviewed: Yes I reviewed the patient's lab results. Result diagrams: 06/10/20 19:00 06/10/20 19:00 Labs: Lab Results 06/10/20 06/10/20 06/10/20 Range/Units 19:00 19:00 19:15 WBC 10.1 (4.5-11.0) X10^3/uL RBC 4.19 (4.0-5.2) X10^6/uL Hgb 13.7 (12.0-16.0) g/dL Hct 39.9 (36-46) % MCV 95.3 (80-100) fL MCH 32.6 (26-34) PG MCHC 34.2 (30-36) % RDW 12.6 (11.6-14.8) % Plt Count 361 (150-400) X10^3/uL Neut % (Auto) 57.4 (50-75) % Lymph % (Auto) 30.1 (25-40) % [place] % (Auto) 8.9 (3-14) % Eos % (Auto) 2.7 (2-4) % Baso % (Auto) 0.9 (0-2) % Neut # (Auto) 5800 (1727-8886) /uL Lymph # (Auto) 3000 (4114-6321) /uL [place] # (Auto) 900 (0-900) /uL Eos # (Auto) 300 (0-450) /uL Baso # (Auto) 100 (0-100) /uL Sodium 140 (137-145) mmol/L Potassium 3.8 (3.4-5.1) mmol/L Chloride 106 (98-107) mmol/L Carbon Dioxide 23 (22-32) mmol/L BUN 16 (7-17) mg/dL Creatinine 0.69 (0.52-1.04) mg/dL Estimated GFR > 60.0 (>60) mL/min BUN/Creatinine Ratio 23.2 H (6-22) Glucose 75 (70-100) mg/dL Calcium 9.2 (8.4-10.2) mg/dL Total Bilirubin 0.7 (0.2-1.3) mg/dL AST 28 (14-36) IU/L ALT 21 (<35) IU/L Alkaline Phosphatase 56 (38-126) U/L Total Protein 7.9 (6.3-8.2) g/dL Albumin 4.6 (3.5-5.0) g/dL Globulin 3.3 (1.7-4.1) g/dL Albumin/Globulin Ratio 1.4 (1.0-2.8) Urine RBC 1-5/hpf (0-5/HPF) Urine WBC 0-1/hpf (0-5/HPF) Ur Squamous Epith Cells 1-5 /hpf (0-5/HPF) Urine Bacteria Occasional (0-1) (None) Ur Culture Indicated? Cult not indicated Point of Care Testing Test Results Negative Urine Dip Bedside Urine Glucose Negative Bedside Urine Bilirubin - Negative Bedside Urine Ketone + 15 Urine Specific [place] 1.030 Bedside Urine Occult Blood +++ Bedside Urine pH 6.0 Bedside Urine Protein - Negative Bedside Urine Urobilinogen - Negative Bedside Urine Nitrite - Negative Bedside Urine Leukocytes - Negative Esterase Point of care testing: Point of Care Testing Test Results Negative Urine Dip Bedside Urine Glucose Negative Bedside Urine Bilirubin - Negative Bedside Urine Ketone + 15 Urine Specific [place] 1.030 Bedside Urine Occult Blood +++ Bedside Urine pH 6.0 Bedside Urine Protein - Negative Bedside Urine Urobilinogen - Negative Bedside Urine Nitrite - Negative Bedside Urine Leukocytes - Negative Esterase Imaging Data US - LANDSCAPE DRAFTER: Radiologist's Impression: [address] [id number] ReportSigned Patient: Fay Mcnair [facility]#: [id number]: 1980Acct:[id number]/Sex: 39 / FDate of Service: 06/10/20Loc: EDAccession Number: [id number] Procedure: US pelvic complete Ordering Provider: Jas Ragland D.O. PROCEDURE: US PELVIC COMPLETE INDICATIONS: PAIN TECHNIQUE: Real-time scanning was performed of the pelvic organs, with image documentation. Additional endovaginal scanning was necessary due to incomplete visualization of the adnexal and endometrial structures by transabdominal scanning. COMPARISON: [facility], , PELVIC COMPLETE, 06/24/2017, 21:18. FINDINGS: Uterus: Uterus is normal in size at 9.0 x 4.1 x 5.1 cm. The endometrium measures 4.8 mm in combined thickness. Ovaries: Right ovary measures 3.3 x 1.7 x 1.2 cm. Left ovary measures 3.2 x 1.9 x 2.1 cm. Other: No pathologic free abdominal or pelvic fluid. Appendix is not definitively identified. IMPRESSION: Unremarkable exam. Dictated by: Lillie Calvo M.D. on 06/10/2020 at 21:15 Approved by: Lillie Calvo M.D. on 06/10/2020 at 21:16 CT scan - abdomen/pelvis: Radiologist's Impression: Suspect enteritis Left lower quadrant pain could be secondary to normal left corpus luteum MDM Narrative Medical decision making narrative: Her labs are reassuring. Her ultrasound is unremarkable and given the amount of discomfort that she is having I feel that a CT scan is warranted to evaluate for another etiology such as appendicitis. Patient expressed understanding with this. The CT scan is also ultimately unremarkable. Does make mention of enteritis however this does not 100% fit her presentation today. There is no indication for antibiotics. Low indication for surgical consultation. I did discuss this with the patient. She was given return precautions and follow-up instructions. She expressed understanding and agreement. Discharge Plan Departure Patient Disposition: Home Clinical Impression: Abdominal pain Instructions: DI for Abdominal Pain-Adult Activity Restrictions/Additional Instructions: Your lab work and CT scan and ultrasound here in the emergency department is very reassuring. There is no signs of any surgical issues. Be sure to stay hydrated. Contact your primary provider for a follow-up. Return to the emergency department for any new or worsening symptoms Prescriptions: No Action amoxicillin 500 mg capsule 500 mg PO BID Qty: 20 RF: 0 levonorgestrel-ethinyl estrad [[place]] 0.1-20 mg-mcg tablet 1 tab PO QDAY Qty: 3 RF: 3 oxycodone-acetaminophen [Percocet] 5-325 mg tablet 1 tab PO Q4-6H PRN (Reason: pain) Qty: 10 RF: 0 hydrocodone-acetaminophen [[place]] 5-325 mg tablet 1 tab PO Q6H PRN (Reason: pain) Qty: 7 RF: 0 Referrals: Frida Johnson MD [Primary Care Provider] -
--- NOTE | 2020-06-10 21:50 | DI.CT.S_ITS ---
PROCEDURE: CT ABDOMEN PELVIS W CON INDICATIONS: Right lower quadrant abdominal pain TECHNIQUE: After the administration of intravenous contrast, 5 mm thick sections acquired from the diaphragm to the symphysis. 5 mm coronal and sagittal reformats were acquired. For radiation dose reduction, the following was used: automated exposure control, adjustment of mA and/or kV according to patient size. COMPARISON: [facility], CT, CT KUB, 12/01/2018, 20:32. [facility], CT, CT ABDOMEN PELVIS W CON, 04/07/2019, 19:47. [facility], US, US PELVIC COMPLETE, 06/10/2020, 20:44. FINDINGS: Image quality: Excellent. ABDOMEN: Lung bases: Lung bases are clear. Heart size is normal. Solid organs: The liver is prominent in size and extends the to the left side of the spleen. No focal liver lesions are seen. Gallbladder wall is not thickened. Biliary system is non dilated. Pancreas enhances normally. Spleen is normal in size and enhancement. No adrenal nodules. Kidneys demonstrate normal size and enhancement, without hydronephrosis. Peritoneum and bowel: In this patient with this given history, scrutiny is given to the appendix. The appendix is well seen and is normal. Mild prominence of fluid-filled small bowel loops can be seen, which measure up to 2.5 cm. Hyperenhancement and wall thickening can be seen involving the proximal small bowel loops. No free fluid or air. Minimal sigmoid diverticulosis is seen, without findings of active diverticulitis. Nodes and vessels: No retroperitoneal or mesenteric adenopathy by size criteria. Aorta and inferior vena cava are normal in size. Miscellaneous: No ventral hernias. PELVIS: Genitourinary: Bladder wall thickness is normal. The uterus appears normal for age. There is a rim enhancing focus of the left ovary on series 2, image 72 measuring 12 mm, which is attributed to a hemorrhagic cyst. No adnexal masses are seen. Miscellaneous: No inguinal hernias or adenopathy. Bones: No suspicious bony lesions. No vertebral body compression fractures. IMPRESSION: Normal appendix. Enteritis is suspected based upon the appearance of the small bowel. Incidental note is made of: Pectus excavatum Prominent liver Left ovary hemorrhagic cyst Note: No significant discrepancy from the preliminary report. Dictated by: Wilbert Valera M.D. on 06/11/2020 at 7:44 Approved by: Wilbert Valera M.D. on 06/11/2020 at 7:49
[2020-06-10] MEDS: SODIUM CHLORIDE 0.9% 1,000 ML 1000 ML IV (21:56)
[2020-06-10] MEDS: MORPHINE 4 MG/ML INJ IV (21:57)
[2020-06-10 22:06] LABS: Bacteria Urine Occasional (0-1); Culture Indicated Urine Cult Not Indicated; RBC Urine 1-5/HPF (0-5/HPF); Squamous Epithelial Cell Urine 1-5 /HPF (0-5/HPF); WBC Urine 0-1/HPF (0-5/HPF)
== END 2020-06-10 23:29 | disposition home or self-care (01) ==
PROVIDERS: Emergency Provider Emergency Medicine; Family Provider Family Medicine; PCP Family Medicine
DX: R10.31 Right lower quadrant pain (principal)
CPT/HCPCS: 36415; 74177; 76830; 76856; 80053; 81003; 81015; 81025; 85025; 96361; 96374; 96375; 99284; J1885; J2270; Q9967

== ENCOUNTER 2020-07-26 21:57 | Emergency (ER) | payer OTHER, MEDICAID, SELFPAY ==
[2020-07-26 22:00] VITALS: BP 118/70; PULSE 112; RESP 24; TEMP 36.6; O2SAT 100
--- NOTE | 2020-07-26 22:02 | DI.RAD.S_ITS ---
PROCEDURE: XR ANKLE LT MIN 3V INDICATIONS: fall, unable to bear wt TECHNIQUE: 3 views of the ankle were acquired. COMPARISON: None. FINDINGS: Bones: No dislocations. Ankle mortise is normally aligned. No suspicious bony lesions. There is a metadiaphyseal junction fracture at the distal fibula, size slightly displaced. This appears acute. Possible poosterior malleolar fracture. Soft tissues: No tibiotalar joint effusion. Achilles tendon appears normal. IMPRESSION: Acute distal fibular fracture, slightly displaced, at the distal fibular metadiaphyseal junction. Possible additional fracture seen on the lateral view only at the posterior malleolus. Dictated by: Tejas Reddy M.D. on 07/27/2020 at 8:35 Approved by: Tejas Reddy M.D. on 07/27/2020 at 8:37
[2020-07-27] MEDS: ACETAMINOPHEN 325 MG TABLET 975 MG PO (00:51)
[2020-07-27] MEDS: IBUPROFEN 400 MG TABLET 800 MG PO (00:51)
[2020-07-27] MEDS: OXYCODONE/ACETAMINOPHEN 5/325 TABLET 1 TAB PO (01:28)
[2020-07-27] MEDS: OXYCODONE/APAP 5/325 PREPACK 1 BOTTLE MISC (02:27)
[2020-07-27] MEDS: OXYCODONE IR 5 MG TABLET PO (02:27)
[2020-07-27 02:34] VITALS: BP 121/72; PULSE 97; TEMP 36.8; O2SAT 100
--- NOTE | 2020-07-27 03:47 | PC.NURSE ---
Fawad PERALTA applied splint and gave crutches to her.she was smiling and thankfull when discharged.
[2020-07-27 03:49] VITALS: BP 120/69; PULSE 80; RESP 18; O2SAT 98
--- NOTE | 2020-07-27 06:17 | ED.LOWEXIN ---
HPI - Extremity Injury (Lower) General Chief Complaint: Extremity Injury, Lower Stated Complaint: left ankle injury Time Seen by Provider: 07/27/20 02:07 Source: patient Mode of arrival: Wheelchair History of Present Illness HPI Narrative: Otherwise healthy 39-year-old woman was jumping over the barrier this afternoon and landed in a way that caused her to fall sustaining a bruise to the dorsum of the right foot significant pain and swelling to the left ankle and minor abrasions to both knees. She did not hit her head and there was no additional reported trauma she is unable to bear weight at all on the left foot. Related Data Previous Rx's Medication Instructions Recorded levonorgestrel-ethinyl estradiol 1 tab PO QDAY #3 pac 01/31/18 0.1 mg-20 mcg tablet amoxicillin 500 mg capsule 500 mg PO BID #20 cap 06/05/18 oxycodone-acetaminophen [Percocet] 1 tab PO Q4-6H PRN #10 tab 10/10/18 hydrocodone-acetaminophen [[place]] 1 tab PO Q6H PRN #7 tab 04/07/19 oxycodone-acetaminophen 1 tab PO Q6H PRN 7 Days #25 tab 07/27/20 Allergies Allergy/AdvReac Type Severity Reaction Status Date / Time Sulfa (Sulfonamide Allergy Severe ANAPHYLACTI Verified 06/10/20 18:49 Antibiotics) C Review of Systems Review of Systems ROS Unobtainable: All systems reviewed & are unremarkable except as noted in HPI and below Patient History Medical History Chronic constipation Recurrent pyelonephritis Surgical History Status post dilation and curettage Status post tubal ligation Family History Brother Age: 27 Mental health problem Father Age: 62 Hypertension High cholesterol Mental health problem Grandmother Hypertension High cholesterol Mother Mental health problem Grandfather Heart disease Hypertension High cholesterol Stroke Grandmother Hypertension High cholesterol Social History Smoking Status: Current every day smoker Smoking Status: Current every day smoker alcohol intake frequency: a few times a week Substance Use Type: marijuana Exam Narrative Exam Narrative: General: Alert appropriate in no acute distress Respiratory: Able to speak in full sentences, no obvious respiratory distress Skin: No obvious rashes, warm and dry Neurologic: Grossly intact no obvious asymmetries or abnormalities Psych: appropriate insight and affect, cooperative Extremity: Minor contusions and abrasions to both knees. A minor hematoma to the dorsum of the right foot without underlying bony tenderness and normal ankle mobility. Left ankle significantly tender with hematoma and edema bilaterally. She does have full sensation to the feet and toes. Initial Vital Signs Initial Vital Signs: Vital Signs Temperature 97.8 F 07/26/20 22:00 Pulse Rate 112 H 07/26/20 22:00 Respiratory Rate 24 07/26/20 22:00 Blood Pressure 118/70 07/26/20 22:00 Pulse Oximetry 100 07/26/20 22:00 Procedures Orthopedic Splinting/Casting Left distal fibula and posterior malleolus fracture: Side: right Lower Extremity Injury Location: lower leg Lower Extremity Immobilizer: posterior splint and stirrup splint Other Orthopedic Equipment: crutches Post splinting neuro exam: intact Post splinting vascular exam: intact Placed by: Nursing Course Orders Ordered: ED Orders 07/26/20 22:02 XR ankle LT min 3V Stat Discontinued Medications Acetaminophen (Acetaminophen 325 Mg Tablet) 975 mg PO NOW ONE Stop: 07/27/20 00:04 Last Admin: 07/27/20 00:51 Dose: 975 mg Documented by: JOCE Ibuprofen (Ibuprofen 400 Mg Tablet) 800 mg PO NOW ONE Stop: 07/27/20 00:04 Last Admin: 07/27/20 00:51 Dose: 800 mg Documented by: JOCE Oxycodone HCl (Oxycodone Ir 5 Mg Tablet) 5 mg PO NOW ONE Stop: 07/27/20 02:13 Last Admin: 07/27/20 02:27 Dose: 5 mg Documented by: PEREZ Oxycodone/Acetaminophen (Oxycodone/Acetaminophen 5/325 Tablet) 1 tab PO NOW ONE Stop: 07/27/20 01:25 Last Admin: 07/27/20 01:28 Dose: 1 tab Documented by: JOCE Oxycodone/Acetaminophen (Oxycodone/Apap 5/325 Prepack) 1 bottle MISC SEEINSTR ONE Stop: 07/27/20 02:13 Last Admin: 07/27/20 02:27 Dose: 1 bottle Documented by: PEREZ Vital Signs Vital signs: Vital Signs - 8 hr 07/27/20 02:34 07/27/20 03:49 Temperature 98.2 F Pulse Rate 97 H 80 Respiratory Rate 18 Blood Pressure 121/72 120/69 Pulse Oximetry 100 98 MDM - Extremity Injury (Lower) Medical Records Attestation: I reviewed the patient's medical records. Imaging Data Left ankle x-ray: Radiologist's Impression: Oblique fracture of the distal fibula. Fracture of the posterior malleolus. No dislocation. Parag Cortez MD [facility] Narrative Medical decision making narrative: Otherwise healthy 39-year-old woman with bimalleolar fracture left ankle. Minor contusion to the right foot and abrasions to the knees. She is paced in a posterior splint with stirrup splint and fitted with crutches. Pain was moderately well controlled she is discharged home with prescriptions for Percocet and instructions on use as well as follow-up recommendations to [facility] to schedule appointment for definitive care. Did recommend that she see if Dr. Persaud had available appointments, questions answered and she is safe for home discharge Discharge Plan Departure Patient Disposition: Home Clinical Impression: Fracture of distal end of left fibula Qualifiers: Encounter type: initial encounter Fracture type: closed Fracture morphology: unspecified fracture morphology Qualified Code(s): S82.832A - Other fracture of upper and lower end of left fibula, initial encounter for closed fracture Closed fracture of posterior malleolus of left tibia Qualifiers: Encounter type: initial encounter Qualified Code(s): S82.392A - Other fracture of lower end of left tibia, initial encounter for closed fracture Contusion of foot Qualifiers: Encounter type: initial encounter Laterality: right Qualified Code(s): S90.31XA - Contusion of right foot, initial encounter Instructions: DI for Ankle Fracture Activity Restrictions/Additional Instructions: Thank you for coming in today Your right foot is going to be bruised and sore but does not appear to be broken. Your left ankle is broken. Unfortunately, you may need surgery for this as both of the ankle bones are broken. This splint is in place to help with stabilization. This is an unstable fracture and you should not walk on the splint. You will need to see a physician at [facility]. When you call to schedule an appointment at [phone], please ask to see Dr. Jeffers, she is the ankle and security systems specialist in their clinic. In the meantime, using 400 mg of ibuprofen (2 [id number] pills) and 1 Tylenol every 6 hours can be very helpful in controlling pain. Using 2 ibuprofen and 1 Percocet for severe pain can help. Keeping the foot elevated and ice on the outside of the splint can also help. A prescription for Percocet was electronically transmitted to [facility] in [place] for you I hope you heal quickly and your wedding is still perfect Prescriptions: New oxycodone-acetaminophen 5-325 mg tablet 1 tab PO Q6H PRN (Reason: pain) 7 Days Qty: 25 RF: 0 No Action amoxicillin 500 mg capsule 500 mg PO BID Qty: 20 RF: 0 levonorgestrel-ethinyl estrad [Aviane] 0.1-20 mg-mcg tablet 1 tab PO QDAY Qty: 3 RF: 3 oxycodone-acetaminophen [Percocet] 5-325 mg tablet 1 tab PO Q4-6H PRN (Reason: pain) Qty: 10 RF: 0 hydrocodone-acetaminophen [[place]] 5-325 mg tablet 1 tab PO Q6H PRN (Reason: pain) Qty: 7 RF: 0 Referrals: Frida Johnson MD [Primary Care Provider] -
== END 2020-07-27 03:30 | disposition home or self-care (01) ==
PROVIDERS: Emergency Provider Emergency Medicine; Family Provider Family Medicine; PCP Family Medicine
DX: S82.832A Other fracture of upper and lower end of left fibula, initial encounter for closed fracture (principal); S82.392A Other fracture of lower end of left tibia, initial encounter for closed fracture; S90.31XA Contusion of right foot, initial encounter; W19.XXXA Unspecified fall, initial encounter
CPT/HCPCS: 73610; 99283

== ENCOUNTER → 2020-07-29 10:20 | Outpatient (CLI) | payer OTHER, MEDICAID, SELFPAY ==
--- NOTE | 2020-07-29 10:25 | DI.CT.S_ITS ---
PROCEDURE: CT LE RT WO CON INDICATIONS: RT FOOT FRACTURE TECHNIQUE: Noncontrast 1-1.5 mm axial sections acquired from above the tibiotalar joint to the bottom of the calcaneus, with coronal and sagittal reformats. COMPARISON: [facility] [place], CR, XR FOOT 3+ VIEWS RIGHT, 07/28/2020, 15:05. FINDINGS: Image quality: Excellent. Bones: Mildly displaced fracture through the proximal and lateral margin of the cuboid bone which extends into the calcaneocuboid joint. Nondisplaced fracture involving the distal and lateral margin of the cuboid bone noted which extends into the 4th and 5th tarsal-metatarsal joints. Several additional, non-contiguous cortical lucencies are noted in the central portion of the cuboid bone suspicious for nondisplaced fracture. Soft tissues: Mild soft tissue swelling noted in the lateral aspect of the foot. No discrete soft tissue fluid collections. IMPRESSION: 1. Fractures involving the proximal and distal margins of the cuboid bone with extension into the calcaneocuboid and 4th-5th tarsal-metatarsal joints. 2. Possible nondisplaced fracture through the central portion of the cuboid bone. MRI of the foot could be performed for additional characterization if clinically indicated. Dictated by: Randi Nova MD, PhD on 07/29/2020 at 11:34 Approved by: Randi Nova MD, PhD on 07/29/2020 at 11:42
== END ==
PROVIDERS: Family Provider Family Medicine; PCP Family Medicine; Referring Provider Physician Assistant; Visit Provider Physician Assistant
DX: S92.211A Displaced fracture of cuboid bone of right foot, initial encounter for closed fracture (principal); X58.XXXA Exposure to other specified factors, initial encounter
CPT/HCPCS: 73700

== ENCOUNTER 2020-07-29 14:11 | Day surgery (SDC) | payer OTHER, MEDICAID, SELFPAY ==
[2020-07-29] VITALS (7 sets, daily range): BP systolic 112–128; BP diastolic 67–79; PULSE 56–79; RESP 11–18; TEMP 36.3–37; O2SAT 99–100; BMI 22.3
[2020-07-29 15:11] LABS: COVID19 -Nasal RAPID Negative (Negative)
[2020-07-29] MEDS: LACTATED RINGERS 1,000 ML 42 ML IV (16:40)
[2020-07-29] MEDS: OXYCODONE/ACETAMINOPHEN 5/325 TABLET 1 TAB PO ×2 (17:04→20:04)
--- NOTE | 2020-07-29 17:07 | SUR.PREOP ---
Pt resting with call light. Bed down. Medicated for pain. Ice to left ankle. Feet/legs elevated.
--- NOTE | 2020-07-29 18:04 | PM.PREOP ---
Pre-operative Note COVID-19 COVID-19 status: Negative Interval Note History & Physical reviewed/Exam performed by Physician: Yes Changes to H&P: No
[2020-07-29] MEDS: CEFAZOLIN 1 GM VIAL 2 GM IV (18:20)
--- NOTE | 2020-07-29 18:44 | SUR.OPER ---
Supine on padded OR bed, head on pillow, arms secured on padded arm boards at <90 degrees abduction, legs uncrossed, safety belt at thigh, tape over blanket over lower legs.
[2020-07-29] MEDS: BUPIVACAINE 0.5% (PF) VIAL 30 ML INJ (18:48)
--- NOTE | 2020-07-29 19:47 | PM.OP.1 ---
Operative Date/Time/Diagnoses Date of procedure: 07/29/20 Time of procedure: 17:21 Pre-op diagnosis: Left trimalleolar ankle fracture Post-op diagnosis: same Procedure & Clinicians Procedure: Open reduction internal fixation left trimalleolar ankle fracture without fixation of the posterior left Same procedure as scheduled: Yes Indications: Is a 39-year-old female who fell and injured her left ankle. Her x-rays showed a trimalleolar ankle fracture which is brought to the operating room for open reduction internal fixation. Surgeon: Jordana Esquivel Click Yes if Unassisted: Yes Anesthesia Type: General and Peripheral nerve block Operative Notes Findings: Unstable left ankle trimalleolar fracture, adequate quality bone, good quality reduction and stable fixation Closure Type: primary Specimen(s): none sent Estimated Blood Loss (mL): 100 Blood products transfused: none Tourniquet time (min): 56 Procedure in detail: Patient is brought to operating room she underwent induction of a general anesthesia. Her left lower extremities prepped draped standard sterile fashion. Time-out was performed an IV antibiotics were given. Her ankle was checked with fluoroscope there was evidence of significant mortise widening with gentle stress consistent with her trimalleolar ankle fracture. Tourniquet was elevated to 250 mmHg. Lateral skin incision was made dissection was carried out through skin and subcutaneous tissues cup the retractors were placed. The fibula was meticulously reduced and the mortise was reduced. It was filled with several small bone reduction clamps. It was then fixed with an Arthrex plate initially placing a single lag screw and then placing a lateral plate with multiple locking screws distally and nonlocking screws proximally. The reduction plate location and alignment was meticulously checked with fluoroscopy. The wound was irrigated with normal saline Marcaine was injected. The wound was closed with interrupted Vicryl and a running Vicryl. I specifically checked the stability of the mortise by stressing at after fixation and the mortise was noted to be stable after reduction and fixation. Patient was placed in a bulky Rodriguez dressing after a sterile dressing. Complications: none Post-operative Condition: stable Disposition: Acute Care Plan for aftercare: Nonweightbearing to a maximum of 50 lb on the left lower extremity. Return to clinic in 10-14 days for x-rays out of plaster three view left ankle and three view right foot. Baby aspirin for DVT prophylaxis.
[2020-07-29] MEDS: ACETAMINOPHEN 325 MG TABLET 650 MG PO (20:05)
[2020-07-29] MEDS: ONDANSETRON 4 MG/2 ML INJ IV (20:19)
--- NOTE | 2020-07-29 20:39 | SUR.PHASEII ---
Pt ready to go, tiff called. D/C instructions discussed with both. both voiced an understanding. pt left in stable condition.
== END 2020-07-29 20:41 | disposition home or self-care (01) ==
PROVIDERS: Family Provider Family Medicine; PCP Family Medicine; Referring Provider Orthopaedic Surgery; Visit Provider Orthopaedic Surgery
PROC: (CPT 27822; principal; 2020-07-29 16:15)
DX: S82.852A Displaced trimalleolar fracture of left lower leg, initial encounter for closed fracture (principal); W13.0XXA Fall from, out of or through balcony, initial encounter; Y93.39 Activity, other involving climbing, rappelling and jumping off; Z20.822 Contact with and (suspected) exposure to COVID-19; S92.211A Displaced fracture of cuboid bone of right foot, initial encounter for closed fracture; X58.XXXA Exposure to other specified factors, initial encounter
CPT/HCPCS: 27822; 73700; 87635; J0690; J1100; J2405; J2704; J3010

== ENCOUNTER 2020-10-26 16:00 | Outpatient (RCR) | payer OTHER, MEDICAID, SELFPAY ==
--- NOTE | 2020-09-14 17:17 | PT.OIE ---
Current Diagnoses Difficulty in walking, not elsewhere classified (09/14/20) Displaced trimalleolar fracture of left lower leg, subsequent encounter for closed fracture with routine healing (09/14/20) Unspecified sprain of right foot, sequela (09/14/20) Past Medical History (Last Reviewed 07/27/20 @ 06:18 by Fabienne Whitfield MD) Chronic constipation Recurrent pyelonephritis Past Surgical History (Last Reviewed 07/27/20 @ 06:18 by Fabienne Whitfield MD) Status post dilation and curettage Status post tubal ligation Visit Care Team Role Provider Type Frida Johnson MD Family Provider Physician Primary Care Provider Specialty: Family Practice Address: [address] [place] [address], [id number] Email: [email or web address] Jordana Esquivel MD Attending Provider Physician Referring Provider Specialty: Orthopedic Surgery Address: [address] [place] [address], [id number] Email: [email or web address] [facility] Initial Evaluation PT-OP-A Visit Information Start: 09/14/20 08:51 Freq: Status: Active Protocol: Document 09/14/20 16:45 AW (Rec: 09/14/20 08:59 AW [email or web address]) Out-Patient Physical Therapy Visit Information Visit Information Visit Type Initial Evaluation Visit Start Time 16:00 Visit Stop Time 16:45 Total Visit Minutes 45 Visit Number 1/8 Number of POWER TRUCK DRIVER Visits 0 Evaluation Information Evaluation Date 09/14/20 Precautions Precautions Weightbearing as tolerated LLE PT-OP-B Current Condition Start: 09/14/20 08:51 Freq: Status: Active Protocol: Document 09/14/20 16:45 AW (Rec: 09/14/20 08:59 AW [email or web address]) Current Condition History of Current Condition Onset Date 07/26/20 Current Complaints left ankle trimalleolar fracture s/p ORIF History of Current Condition Fay jumped over a fence on 07/26/20 and felt her left ankle buckle. She went to the ED where her fracture was identified. She had ORIF at [facility] on 07/29/20. Pt states her right foot was also fractured but was stable and treated conservatively. Per ortho, right foot has healed well. Her right foot gets sore and tight from time to time but overall feels good . She was cleared by ortho for WBAT with or without the western boot recently but has had limited tolerance for any weightbearing, reporting pain that jolts from her foot all the way up to her neck. Left ankle is still swollen. Pt has been icing 4x/day. She is using axillary crutches for community ambulation. She uses a 4WW to sit and scoot around her house. She has a wheelchair for longer distances. Incidentally, pt slipped and fell at work in 2017, injuring her left hip. She feels her ankle injury has exacerbated her left hip pain . can't put away dishes. grab bars and step stool as a shower chair. walking up to 300 feet on crutches before needing a break can rest foot on floor wearing FELIPA bandage at home ( no boot) and scooting with RLE three cushion pads in heel to accommodate lack of DF Prior Treatments and Tests ORIF 07/29/[address] Esquivel at [facility]. Treatment Goals Patient/Caregiver Goals Pt hopes to walk in some fashion at her wedding on September 27. 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 Current Functional Impairments (Reported) Functional Limitations- ADL's Needs grab bars and shower chair for showers, assist with LB dressing Functional Limitations- Mobility/Gait Using axillary crutches for limited ambulation Personal Factors Other Personal Factors That May Effect Positive prior experience with Therapy/Recovery PT PT-OP-C Subjective Start: 09/14/20 08:51 Freq: Status: Active Protocol: Document 09/14/20 16:45 AW (Rec: 09/14/20 17:08 AW [id number]) OP-PT Subjective Patient Comments Patient Comments Pt has not been able to tolerate weightbearing in or out of the boot. Patient Questionnaires Foot & Ankle Ability Measure- ADL and Sports FAAM-ADL Score 31 FAAM-ADL Impairment 60 to 79% Impaired (Score 16- 32) Lower Extremity Functional Scale LEFS Score 19 LEFS Impairment 60 to 79% Impaired (Score 17- 31) OP-PT Pain Assessment Pain Assessment Grid Paper Pain Assessment Grid Completed Yes: scanned to EMR PT-OP-F Manual Assessment Start: 09/14/20 08:51 Freq: Status: Active Protocol: Document 09/14/20 16:45 AW (Rec: 09/14/20 17:08 AW [id number]) Manual Assessments Other Manual Assessments Other Manual Assessments Well healed surgical scar with one stitch remaining PT-OP-G Mobility & Gait Start: 09/14/20 08:51 Freq: Status: Active Protocol: Document 09/14/20 16:45 AW (Rec: 09/14/20 17:15 AW [id number]) OP Gait Assessment Gait Gait Assistance Required: Standby Assistance Distance (Feet) 100 Able to Maintain Weight Bearing Status Yes During Gait Assistive Devices Assistive Device Axillary Crutches Orthotic/Prosthetic Devices or Brace: Yes Gait Deviations General Gait Pattern Antalgic,Decreased Stride Length,Flexed Trunk,Step-to Gait Factors Limiting Gait Function Factors Limiting Gait Function Decreased Sensation,Decreased Strength,Pain,Poor Balance Comments Gait Comments Gait with boot and axillary crutches is antalgic and notable for decreased left knee extension, decreased hip extension, and step-to patterning. Pt has three heel pads in her western boot to accommodate her lack of DF. Stair Climbing Evaluation Comments Stair Climbing Comments Not assessed. PT-OP-J Posture/Palpation/Skin Start: 09/14/20 08:51 Freq: Status: Active Protocol: Document 09/14/20 16:45 AW (Rec: 09/14/20 17:15 AW [id number]) Skin Assessment Edema Assessment left ankle Edema Type Non-Pitting Subjective Edema Description Pain,Tightness Circumference Measurement right foot/ankle Comments MTP: 20.0 cm, midfoot 21.0 cm, malleoli 21.7 cm left foot/ankle Comments MTP: 20.6 cm, midfoot 21.0 cm, malleoli 24.3 cm PT-OP-K Range of Motion Start: 09/14/20 08:51 Freq: Status: Active Protocol: Document 09/14/20 16:45 AW (Rec: 09/14/20 17:22 AW [id number]) Hip Goniometric Range of Motion Hip ROM Limitations Comments All hip ROM WNL Knee Goniometric Range of Motion Knee ROM Limitations Comments WNL Ankle and Foot Goniometric Range of Motion Ankle and Foot right Ankle/Foot ROM WFL Yes Testing Position Sitting Dorsiflexion with Knee Flexed 8 Dorsiflexion with Knee Extended 10 Inversion 28 Eversion 17 left Ankle/Foot ROM WFL No Testing Position Sitting Comments lacking 8 degrees knee extended and 10 degrees knee flexed. no active inversion or eversion Ankle and Foot ROM Limitations ROM Limitations Pain,Swelling Toe Range of Motion Toe L 1st MTP Toe ROM WFL No Toes ROM Limitations Toe ROM Limitations Pain,Swelling Comments Lacking flexion and extension compared with right side PT-OP-M Strength Start: 09/14/20 08:51 Freq: Status: Active Protocol: Document 09/14/20 16:45 AW (Rec: 09/14/20 17:22 AW [id number]) Hip Strength Hip Manual Muscle Testing bilateral Flexion (L2) 4+ Good+ Extension (S1) 4 Good Abduction 4 Good Adduction 4- Good- Knee Strength Knee Manual Muscle Testing Left Flexion (S2) 4- Good- Extension (L3) 4 Good Right Flexion (S2) 5 Normal Extension (L3) 5 Normal Ankle/Foot Strength Ankle and Foot Manual Muscle Testing Left Comments Not formally tested due to pain presentation Right Dorsiflexion (L4) 5 Normal Plantarflexion (S1) 5 Normal Inversion 5 Normal Eversion (S1) 5 Normal Toe Strength Toe Manual Muscle Testing Left Great Toe Flexion 4- Good- Extension 4- Good- PT-OP-Q Treatments Start: 09/14/20 08:51 Freq: Status: Active Protocol: Document 09/14/20 16:45 AW (Rec: 09/15/20 09:39 AW [email or web address]) Gait Training Gait Activity 2 Device Used boot, axillary crutches Level of Assistance SBA Surface firm Distance/Duration 7 min Treatment Focus equalize step lengths, weight acceptance initial contact through mid stance Comments Cued knee extension as able prior to initial contact LLE. Cued knee extension to facilitate heel strike. Focused on equalizing step lengths and stance time to work toward normalizing gait pattern. 1 Description pre-gait Device Used // bars Level of Assistance SBA Surface firm Distance/Duration 7 min Treatment Focus weightbearing LLE, dorsiflexion Comments pre-gait A/P weight shift in boot with // bars support; assigned for HEP PT-OP-T Assessment and Plan Start: 09/14/20 08:51 Freq: Status: Active Protocol: Document 09/14/20 16:45 AW (Rec: 09/15/20 09:44 AW [email or web address]) Physical Therapy Assessment Rehab Potential Rehabilitation Potential Excellent Evaluation Complexity Number of Personal Factors/Comorbidities 0 Number of Body Systems Impaired 1-2 Clinical Presentation at Evaluation Stable Impairments Impairments Activity Tolerance,Balance, Edema,Functional Activities, Functional Mobility,Gait,Pain, Posture,ROM,Sensation,Soft Tissue Mobility,Strength, Transfers Goals painful gait Impairment painful gait Antiquer Goal (LTG) Pt will ambulate 500 feet without walking boot or assistive device with normalized gait pattern and no increase in baseline pain. LTG Duration 11/09/20 edema Impairment swelling left ankle Antiquer Goal (LTG) Circumferential meaurements of left ankle will be within 0.5 cm of right side and stable over one week for improved pain management and ROM. LTG Duration 11/09/20 ROM Impairment pt lacks active dorsiflexion Short Term Goal (STG) Pt will improve left ankle dorsiflexion to neutral STG Duration 09/23/20 Antiquer Goal (LTG) Pt will improve left ankle active dorsiflexion to 8 degrees or greater for improved gait mechanics and stair management. LTG Duration 11/09/20 gait Impairment pt ambulates with B axillary crutches Short Term Goal (STG) Pt will normalize gait pattern with axillary crutches with or without walking boot STG Duration 09/23/20 Antiquer Goal (LTG) Pt will normalize gait pattern without walking boot and without assistive device to reduce risks associated with immobility LTG Duration 11/09/20 Assessment Summary Assessment Fay is an active and independent 39 yo woman presenting to outpatient physical therapy with trimalleolar left ankle fracture treated with ORIF >6 weeks ago. She is cleared for weightbearing as tolerated in or out of the walking boot but has had limited tolerance for any weightbearing in the boot and continues to move around her home by sitting in a 4WW and propelling with her right leg. She arrives to therapy in the boot and using bilateral axillary crutches. Gait, ROM, strength are all impaired with pt reporting high levels of pain with any weightbearing. Her pain symptoms are highly irritable, making palpation of ankle and surrounding soft tissue difficult. She requires skilled therapy to address these impairments and to mitigate the risks of immobility with the goal of restoring her prior level of function. Physical Therapy Plan Frequency and Duration Frequency of Treatment 2x/Week Duration of Treatment 2 months Plan of Care Start Date 09/14/20 Plan of Care End Date 11/14/20 Therapeutic Interventions Therapeutic Interventions Aquatic Therapy,Balance Training,Gait Training,Home Exercise Program,Joint Mobilizations,Manual Therapy, Neuromuscular Re-education, Orthotic/Prosthetic Management ,Patient/Caregiver Education, Self-Care/Home Management,Soft Tissue Mobilization,Taping, Therapeutic Activities, Therapeutic Exercises Modalities Cold Pack/Ice Massage Next Visit Focus/Plan Next Note Type Treatment Note Next Visit Plan progress gait training as able ; consider removing heel lifts from boot for increased dorsiflexion; manual therapy and/or taping as tolerated for edema management
--- NOTE | 2020-09-14 17:17 | PT.OPPOC ---
Physical, Occupational & Speech Therapy At [facility] Current Diagnoses Difficulty in walking, not elsewhere classified (09/14/20) Displaced trimalleolar fracture of left lower leg, subsequent encounter for closed fracture with routine healing (09/14/20) Unspecified sprain of right foot, sequela (09/14/20) Visit Care Team Role Provider Type Frida Johnson MD Family Provider Physician Primary Care Provider Specialty: Family Practice Address: [address] [place] [address], [facility], [place], [address] Email: [email or web address] Jordana Esquivel MD Attending Provider Physician Referring Provider Specialty: Orthopedic Surgery Address: [address] [place] [address], [id number] Email: [email or web address] Plan Of Care PT-OP-T Assessment and Plan Start: 09/14/20 08:51 Freq: Status: Active Protocol: Document 09/14/20 16:45 AW (Rec: 09/15/20 09:44 AW [email or web address]) Physical Therapy Assessment Rehab Potential Rehabilitation Potential Excellent Evaluation Complexity Number of Personal Factors/Comorbidities 0 Number of Body Systems Impaired 1-2 Clinical Presentation at Evaluation Stable Impairments Impairments Activity Tolerance,Balance, Edema,Functional Activities, Functional Mobility,Gait,Pain, Posture,ROM,Sensation,Soft Tissue Mobility,Strength, Transfers Goals painful gait Impairment painful gait Grain Trader Goal (LTG) Pt will ambulate 500 feet without walking boot or assistive device with normalized gait pattern and no increase in baseline pain. LTG Duration 11/09/20 edema Impairment swelling left ankle Jail Goal (LTG) Circumferential meaurements of left ankle will be within 0.5 cm of right side and stable over one week for improved pain management and ROM. LTG Duration 11/09/20 ROM Impairment pt lacks active dorsiflexion Short Term Goal (STG) Pt will improve left ankle dorsiflexion to neutral STG Duration 09/23/20 Grain Trader Goal (LTG) Pt will improve left ankle active dorsiflexion to 8 degrees or greater for improved gait mechanics and stair management. LTG Duration 11/09/20 gait Impairment pt ambulates with B axillary crutches Short Term Goal (STG) Pt will normalize gait pattern with axillary crutches with or without walking boot STG Duration 09/23/20 Grain Trader Goal (LTG) Pt will normalize gait pattern without walking boot and without assistive device to reduce risks associated with immobility LTG Duration 11/09/20 Assessment Summary Assessment Fay is an active and independent 39 yo woman presenting to outpatient physical therapy with trimalleolar left ankle fracture treated with ORIF >6 weeks ago. She is cleared for weightbearing as tolerated in or out of the walking boot but has had limited tolerance for any weightbearing in the boot and continues to move around her home by sitting in a 4WW and propelling with her right leg. She arrives to therapy in the boot and using bilateral axillary crutches. Gait, ROM, strength are all impaired with pt reporting high levels of pain with any weightbearing. Her pain symptoms are highly irritable, making palpation of ankle and surrounding soft tissue difficult. She requires skilled therapy to address these impairments and to mitigate the risks of immobility with the goal of restoring her prior level of function. Physical Therapy Plan Frequency and Duration Frequency of Treatment 2x/Week Duration of Treatment 2 months Plan of Care Start Date 09/14/20 Plan of Care End Date 11/14/20 Therapeutic Interventions Therapeutic Interventions Aquatic Therapy,Balance Training,Gait Training,Home Exercise Program,Joint Mobilizations,Manual Therapy, Neuromuscular Re-education, Orthotic/Prosthetic Management ,Patient/Caregiver Education, Self-Care/Home Management,Soft Tissue Mobilization,Taping, Therapeutic Activities, Therapeutic Exercises Modalities Cold Pack/Ice Massage Next Visit Focus/Plan Next Note Type Treatment Note Next Visit Plan progress gait training as able ; consider removing heel lifts from boot for increased dorsiflexion; manual therapy and/or taping as tolerated for edema management Plan of Care Dates Plan of Care Start Date 09/14/20 Plan of Care End Date 11/14/20 Electronically Signed by: Ana Kendall, PT 09/15/20 1089 Please Sign and Return: I have reviewed this Plan of Care and certify that the skilled therapy services above are required to meet the patient?s needs. Physician Signature Date Printed Name and Credentials Clinical Instructor Signature Printed Name and Credentials
--- NOTE | 2020-09-16 16:17 | PT.OTN ---
Current Diagnoses Difficulty in walking, not elsewhere classified (09/16/20) Displaced trimalleolar fracture of left lower leg, subsequent encounter for closed fracture with routine healing (09/16/20) Unspecified sprain of right foot, sequela (09/16/20) Physical Therapy Treatment Note PT-OP-A Visit Information Start: 09/14/20 08:51 Freq: Status: Active Protocol: Document 09/16/20 12:01 MA (Rec: 09/16/20 12:53 MA [id number]) Out-Patient Physical Therapy Visit Information Visit Information Visit Type Treatment Note Visit Start Time 11:57 Visit Stop Time 12:45 Total Visit Minutes 48 Visit Number 2/8 Number of SMELTING ENGINEER Visits 1 Precautions Precautions Weightbearing as tolerated LLE PT-OP-B Current Condition Start: 09/14/20 08:51 Freq: Status: Active Protocol: Document 09/14/20 16:45 AW (Rec: 09/14/20 08:59 AW [id number]) Current Condition History of Current Condition Onset Date 07/26/20 Current Complaints left ankle trimalleolar fracture s/p ORIF History of Current Condition Fay jumped over a fence on 07/26/20 and felt her left ankle buckle. She went to the ED where her fracture was identified. She had ORIF at [facility] on 07/29/20. Pt states her right foot was also fractured but was stable and treated conservatively. Per ortho, right foot has healed well. Her right foot gets sore and tight from time to time but overall feels good . She was cleared by ortho for WBAT with or without the western boot recently but has had limited tolerance for any weightbearing, reporting pain that jolts from her foot all the way up to her neck. Left ankle is still swollen. Pt has been icing 4x/day. She is using axillary crutches for community ambulation. She uses a 4WW to sit and scoot around her house. She has a wheelchair for longer distances. Incidentally, pt slipped and fell at work in 2017, injuring her left hip. She feels her ankle injury has exacerbated her left hip pain . can't put away dishes. grab bars and step stool as a shower chair. walking up to 300 feet on crutches before needing a break can rest foot on floor wearing FELIPA bandage at home ( no boot) and scooting with RLE three cushion pads in heel to accommodate lack of DF Prior Treatments and Tests ORIF 07/29/[address] Esquivel at [facility]. Treatment Goals Patient/Caregiver Goals Pt hopes to walk in some fashion at her wedding on September 27. 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 Current Functional Impairments (Reported) Functional Limitations- ADL's Needs grab bars and shower chair for showers, assist with LB dressing Functional Limitations- Mobility/Gait Using axillary crutches for limited ambulation Personal Factors Other Personal Factors That May Effect Positive prior experience with Therapy/Recovery PT PT-OP-C Subjective Start: 09/14/20 08:51 Freq: Status: Active Protocol: Document 09/16/20 12:01 MA (Rec: 09/16/20 12:53 MA [id number]) OP-PT Subjective Patient Comments Patient Comments Pt cannot tolerate WB without her boot. She is getting in 10 days and will bring her W/C because she doesn't think she will be able to walk that much PT-OP-F Manual Assessment Start: 09/14/20 08:51 Freq: Status: Active Protocol: Document 09/14/20 16:45 AW (Rec: 09/14/20 17:08 AW [id number]) Manual Assessments Other Manual Assessments Other Manual Assessments Well healed surgical scar with one stitch remaining PT-OP-G Mobility & Gait Start: 09/14/20 08:51 Freq: Status: Active Protocol: Document 09/14/20 16:45 AW (Rec: 09/14/20 17:15 AW [id number]) OP Gait Assessment Gait Gait Assistance Required: Standby Assistance Distance (Feet) 100 Able to Maintain Weight Bearing Status Yes During Gait Assistive Devices Assistive Device Axillary Crutches Orthotic/Prosthetic Devices or Brace: Yes Gait Deviations General Gait Pattern Antalgic,Decreased Stride Length,Flexed Trunk,Step-to Gait Factors Limiting Gait Function Factors Limiting Gait Function Decreased Sensation,Decreased Strength,Pain,Poor Balance Comments Gait Comments Gait with boot and axillary crutches is antalgic and notable for decreased left knee extension, decreased hip extension, and step-to patterning. Pt has three heel pads in her western boot to accommodate her lack of DF. Stair Climbing Evaluation Comments Stair Climbing Comments Not assessed. PT-OP-J Posture/Palpation/Skin Start: 09/14/20 08:51 Freq: Status: Active Protocol: Document 09/14/20 16:45 AW (Rec: 09/14/20 17:15 AW [id number]) Skin Assessment Edema Assessment left ankle Edema Type Non-Pitting Subjective Edema Description Pain,Tightness Circumference Measurement right foot/ankle Comments MTP: 20.0 cm, midfoot 21.0 cm, malleoli 21.7 cm left foot/ankle Comments MTP: 20.6 cm, midfoot 21.0 cm, malleoli 24.3 cm PT-OP-K Range of Motion Start: 09/14/20 08:51 Freq: Status: Active Protocol: Document 09/14/20 16:45 AW (Rec: 09/14/20 17:22 AW [id number]) Hip Goniometric Range of Motion Hip ROM Limitations Comments All hip ROM WNL Knee Goniometric Range of Motion Knee ROM Limitations Comments WNL Ankle and Foot Goniometric Range of Motion Ankle and Foot right Ankle/Foot ROM WFL Yes Testing Position Sitting Dorsiflexion with Knee Flexed 8 Dorsiflexion with Knee Extended 10 Inversion 28 Eversion 17 left Ankle/Foot ROM WFL No Testing Position Sitting Comments lacking 8 degrees knee extended and 10 degrees knee flexed. no active inversion or eversion Ankle and Foot ROM Limitations ROM Limitations Pain,Swelling Toe Range of Motion Toe L 1st MTP Toe ROM WFL No Toes ROM Limitations Toe ROM Limitations Pain,Swelling Comments Lacking flexion and extension compared with right side PT-OP-M Strength Start: 09/14/20 08:51 Freq: Status: Active Protocol: Document 09/14/20 16:45 AW (Rec: 09/14/20 17:22 AW [id number]) Hip Strength Hip Manual Muscle Testing bilateral Flexion (L2) 4+ Good+ Extension (S1) 4 Good Abduction 4 Good Adduction 4- Good- Knee Strength Knee Manual Muscle Testing Left Flexion (S2) 4- Good- Extension (L3) 4 Good Right Flexion (S2) 5 Normal Extension (L3) 5 Normal Ankle/Foot Strength Ankle and Foot Manual Muscle Testing Left Comments Not formally tested due to pain presentation Right Dorsiflexion (L4) 5 Normal Plantarflexion (S1) 5 Normal Inversion 5 Normal Eversion (S1) 5 Normal Toe Strength Toe Manual Muscle Testing Left Great Toe Flexion 4- Good- Extension 4- Good- PT-OP-Q Treatments Start: 09/14/20 08:51 Freq: Status: Active Protocol: Document 09/16/20 12:01 MA (Rec: 09/16/20 12:53 MA [id number]) Therapeutic Exercises Sitting Exercises DF Stretch Sitting Exercise Name heel slide DF stretch Reps/Minutes 5x 5 sec hold ROM Sitting Exercise Name Circles CW, CWW, PF, DF Side left Reps/Minutes 4 min VASU Sitting Exercise Name working on trying to push heel toward floor with toes long term up VASU Side left BAPS Board Sitting Exercise Name PF/DF Side left Resistance lvl 2-3 Reps/Minutes 8 min Gait Training Gait Activity 2 Device Used boot, axillary crutches Level of Assistance SBA Surface firm Distance/Duration 7 min Treatment Focus equalize step lengths, weight acceptance initial contact through mid stance Comments Cued knee extension as able prior to initial contact LLE. Cued knee extension to facilitate heel strike. Focused on equalizing step lengths and stance time to work toward normalizing gait pattern. Manual Therapy Treatment Taping L Ankle Body Location L ankle Treatment Focus Decrease swelling Type of Tape KT tape Comments 2 fan strips Self-Care/Home Management Treatment Education Other Education Discussed taking another heel lift out when pt no longer feels DF stretch with the goal of removing at least one lift a week. HEP: seated ankle CW/CWW circles, DF toe raises, foot slide DF stretch PT-OP-T Assessment and Plan Start: 09/14/20 08:51 Freq: Status: Active Protocol: Document 09/16/20 12:01 MA (Rec: 09/16/20 12:53 MA [id number]) Physical Therapy Assessment Goals painful gait Impairment painful gait Speech Language Pathologist Travel Goal (LTG) Pt will ambulate 500 feet without walking boot or assistive device with normalized gait pattern and no increase in baseline pain. LTG Duration 11/09/20 edema Impairment swelling left ankle Half-Way Goal (LTG) Circumferential meaurements of left ankle will be within 0.5 cm of right side and stable over one week for improved pain management and ROM. LTG Duration 11/09/20 ROM Impairment pt lacks active dorsiflexion Short Term Goal (STG) Pt will improve left ankle dorsiflexion to neutral STG Duration 09/23/20 Half-Way Goal (LTG) Pt will improve left ankle active dorsiflexion to 8 degrees or greater for improved gait mechanics and stair management. LTG Duration 11/09/20 gait Impairment pt ambulates with B axillary crutches Short Term Goal (STG) Pt will normalize gait pattern with axillary crutches with or without walking boot STG Duration 09/23/20 Speech Language Pathologist Travel Goal (LTG) Pt will normalize gait pattern without walking boot and without assistive device to reduce risks associated with immobility LTG Duration 11/09/20 Assessment Summary Assessment Pt has very limited L ankle ROM. Worked on BAPS board for increasing PF/DF. Added CW/CWW ankle circles, seated DF, and foot slide DF stretch to HEP exercises. Worked on LLE weight acceptance during gait and removed 1/3 heel lifts from boot. Encouraged pt to remove another lift after a few days with the goal of removing at least 1 lift/wk to improve DF for gait. Pt has 3 /10 pain throughout DF exercises/stretches today. Ended session by taping L ankle to reduce swelling with instructions to remove after 3 -5 days. Physical Therapy Plan Frequency and Duration Frequency of Treatment 2x/Week Duration of Treatment 2 months Plan of Care Start Date 09/14/20 Plan of Care End Date 11/14/20 Therapeutic Interventions Therapeutic Interventions Aquatic Therapy,Balance Training,Gait Training,Home Exercise Program,Joint Mobilizations,Manual Therapy, Neuromuscular Re-education, Orthotic/Prosthetic Management ,Patient/Caregiver Education, Self-Care/Home Management,Soft Tissue Mobilization,Taping, Therapeutic Activities, Therapeutic Exercises Modalities Cold Pack/Ice Massage Next Visit Focus/Plan Next Note Type Treatment Note Next Visit Plan progress gait training as able ; consider removing heel lifts from boot for increased dorsiflexion; manual therapy and/or taping as tolerated for edema management
--- NOTE | 2020-09-20 11:18 | PT.OTN ---
Current Diagnoses Difficulty in walking, not elsewhere classified (09/20/20) Displaced trimalleolar fracture of left lower leg, subsequent encounter for closed fracture with routine healing (09/20/20) Unspecified sprain of right foot, sequela (09/20/20) Physical Therapy Treatment Note PT-OP-A Visit Information Start: 09/14/20 08:51 Freq: Status: Active Protocol: Document 09/20/20 10:33 SP (Rec: 09/20/20 12:17 SP [id number]) Out-Patient Physical Therapy Visit Information Visit Information Visit Type Treatment Note Visit Start Time 10:33 Visit Stop Time 11:18 Total Visit Minutes 45 Visit Number 3/8 Number of DINING ROOM CASHIER Visits 2 Evaluation Information Evaluation Date 09/14/20 Precautions Precautions Weightbearing as tolerated LLE PT-OP-B Current Condition Start: 09/14/20 08:51 Freq: Status: Active Protocol: Document 09/14/20 16:45 AW (Rec: 09/14/20 08:59 AW [id number]) Current Condition History of Current Condition Onset Date 07/26/20 Current Complaints left ankle trimalleolar fracture s/p ORIF History of Current Condition Fay jumped over a fence on 07/26/20 and felt her left ankle buckle. She went to the ED where her fracture was identified. She had ORIF at [facility] on 07/29/20. Pt states her right foot was also fractured but was stable and treated conservatively. Per ortho, right foot has healed well. Her right foot gets sore and tight from time to time but overall feels good . She was cleared by ortho for WBAT with or without the western boot recently but has had limited tolerance for any weightbearing, reporting pain that jolts from her foot all the way up to her neck. Left ankle is still swollen. Pt has been icing 4x/day. She is using axillary crutches for community ambulation. She uses a 4WW to sit and scoot around her house. She has a wheelchair for longer distances. Incidentally, pt slipped and fell at work in 2017, injuring her left hip. She feels her ankle injury has exacerbated her left hip pain . can't put away dishes. grab bars and step stool as a shower chair. walking up to 300 feet on crutches before needing a break can rest foot on floor wearing FELIPA bandage at home ( no boot) and scooting with RLE three cushion pads in heel to accommodate lack of DF Prior Treatments and Tests ORIF 07/29/[address]quivel at [facility]. Treatment Goals Patient/Caregiver Goals Pt hopes to walk in some fashion at her wedding on September 27. 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 Current Functional Impairments (Reported) Functional Limitations- ADL's Needs grab bars and shower chair for showers, assist with LB dressing Functional Limitations- Mobility/Gait Using axillary crutches for limited ambulation Personal Factors Other Personal Factors That May Effect Positive prior experience with Therapy/Recovery PT PT-OP-C Subjective Start: 09/14/20 08:51 Freq: Status: Active Protocol: Document 09/20/20 10:33 SP (Rec: 09/20/20 12:17 SP [id number]) OP-PT Subjective Patient Comments Patient Comments Pt stated her ankle has been really stiff lately but compliant with ROM HEP. Is getting in 1 week and was hoping to be walking at that time. PT-OP-F Manual Assessment Start: 09/14/20 08:51 Freq: Status: Active Protocol: Document 09/14/20 16:45 AW (Rec: 09/14/20 17:08 AW [id number]) Manual Assessments Other Manual Assessments Other Manual Assessments Well healed surgical scar with one stitch remaining PT-OP-G Mobility & Gait Start: 09/14/20 08:51 Freq: Status: Active Protocol: Document 09/14/20 16:45 AW (Rec: 09/14/20 17:15 AW [id number]) OP Gait Assessment Gait Gait Assistance Required: Standby Assistance Distance (Feet) 100 Able to Maintain Weight Bearing Status Yes During Gait Assistive Devices Assistive Device Axillary Crutches Orthotic/Prosthetic Devices or Brace: Yes Gait Deviations General Gait Pattern Antalgic,Decreased Stride Length,Flexed Trunk,Step-to Gait Factors Limiting Gait Function Factors Limiting Gait Function Decreased Sensation,Decreased Strength,Pain,Poor Balance Comments Gait Comments Gait with boot and axillary crutches is antalgic and notable for decreased left knee extension, decreased hip extension, and step-to patterning. Pt has three heel pads in her western boot to accommodate her lack of DF. Stair Climbing Evaluation Comments Stair Climbing Comments Not assessed. PT-OP-J Posture/Palpation/Skin Start: 09/14/20 08:51 Freq: Status: Active Protocol: Document 09/14/20 16:45 AW (Rec: 09/14/20 17:15 AW [id number]) Skin Assessment Edema Assessment left ankle Edema Type Non-Pitting Subjective Edema Description Pain,Tightness Circumference Measurement right foot/ankle Comments MTP: 20.0 cm, midfoot 21.0 cm, malleoli 21.7 cm left foot/ankle Comments MTP: 20.6 cm, midfoot 21.0 cm, malleoli 24.3 cm PT-OP-K Range of Motion Start: 09/14/20 08:51 Freq: Status: Active Protocol: Document 09/14/20 16:45 AW (Rec: 09/14/20 17:22 AW [id number]) Hip Goniometric Range of Motion Hip ROM Limitations Comments All hip ROM WNL Knee Goniometric Range of Motion Knee ROM Limitations Comments WNL Ankle and Foot Goniometric Range of Motion Ankle and Foot right Ankle/Foot ROM WFL Yes Testing Position Sitting Dorsiflexion with Knee Flexed 8 Dorsiflexion with Knee Extended 10 Inversion 28 Eversion 17 left Ankle/Foot ROM WFL No Testing Position Sitting Comments lacking 8 degrees knee extended and 10 degrees knee flexed. no active inversion or eversion Ankle and Foot ROM Limitations ROM Limitations Pain,Swelling Toe Range of Motion Toe L 1st MTP Toe ROM WFL No Toes ROM Limitations Toe ROM Limitations Pain,Swelling Comments Lacking flexion and extension compared with right side PT-OP-M Strength Start: 09/14/20 08:51 Freq: Status: Active Protocol: Document 09/14/20 16:45 AW (Rec: 09/14/20 17:22 AW [id number]) Hip Strength Hip Manual Muscle Testing bilateral Flexion (L2) 4+ Good+ Extension (S1) 4 Good Abduction 4 Good Adduction 4- Good- Knee Strength Knee Manual Muscle Testing Left Flexion (S2) 4- Good- Extension (L3) 4 Good Right Flexion (S2) 5 Normal Extension (L3) 5 Normal Ankle/Foot Strength Ankle and Foot Manual Muscle Testing Left Comments Not formally tested due to pain presentation Right Dorsiflexion (L4) 5 Normal Plantarflexion (S1) 5 Normal Inversion 5 Normal Eversion (S1) 5 Normal Toe Strength Toe Manual Muscle Testing Left Great Toe Flexion 4- Good- Extension 4- Good- PT-OP-Q Treatments Start: 09/14/20 08:51 Freq: Status: Active Protocol: Document 09/20/20 10:33 SP (Rec: 09/20/20 12:17 SP [id number]) Therapeutic Exercises Sitting Exercises self STMs Sitting Exercise Name calf using rolling pin and pinch achilles MWM ankle PF/DF Side left Comments good feedback response achilles, AROM stretch Sitting Exercise Name DF, IV, EV Side left Resistance AAROM Equipment Used towel Reps/Minutes 20 x3 each Comments good feedback response DF Stretch Sitting Exercise Name heel slide DF stretch Reps/Minutes 5x 5 sec hold ROM Sitting Exercise Name Circles CW, CWW, PF, DF Side left Reps/Minutes x10 each direction BAPS Board Sitting Exercise Name PF/DF/IV/ EV/ CW/CCW Side left Resistance lvl 2 Equipment Used over [employer] ball for home application x5 Reps/Minutes x8 reps each direction- Comments good feedback response feels less tight and able move more Gait Training Gait Activity 2 Device Used boot, 1- 2 axillary crutches Level of Assistance SBA Surface firm Distance/Duration 7 min Treatment Focus equalize step lengths, weight acceptance initial contact through mid stance Comments Cued L knee extension during midstance. Cued knee extension to facilitate heel strike. Focused on equalizing step lengths and stance time to work toward normalizing gait pattern. Pt was able to progress to 1 crutch for short distance to practice walking down [place] for wedding coming up in 1 week. Manual Therapy Treatment Soft Tissue Mobilization calf, achilles Body Location L Mobilization Type Myofascial Release,Sustained Pressure,Other Intensity/Depth Moderate Body Position Prone Comments manual and self instruction sitting MWM w/ ankle pumps achilles and rolling pin calf- good feedback response Joint Mobilizations scar mob Joint L Direction multidirectional Body Position Supine Comments sensitive but tolerant, instructed self application. Not over scap until healed. MTPs, talocrual, sup/pron forefoot Joint L Direction AP, med/ lat rotation Grade II Body Position Sitting Comments manual and instruction on self application. PT-OP-T Assessment and Plan Start: 09/14/20 08:51 Freq: Status: Active Protocol: Document 09/20/20 10:33 SP (Rec: 09/20/20 12:17 SP [id number]) Physical Therapy Assessment Goals painful gait Impairment painful gait Fdc Goal (LTG) Pt will ambulate 500 feet without walking boot or assistive device with normalized gait pattern and no increase in baseline pain. LTG Duration 11/09/20 edema Impairment swelling left ankle Fdc Goal (LTG) Circumferential meaurements of left ankle will be within 0.5 cm of right side and stable over one week for improved pain management and ROM. LTG Duration 11/09/20 ROM Impairment pt lacks active dorsiflexion Short Term Goal (STG) Pt will improve left ankle dorsiflexion to neutral STG Duration 09/23/20 Fdc Goal (LTG) Pt will improve left ankle active dorsiflexion to 8 degrees or greater for improved gait mechanics and stair management. LTG Duration 11/09/20 gait Impairment pt ambulates with B axillary crutches Short Term Goal (STG) Pt will normalize gait pattern with axillary crutches with or without walking boot STG Duration 09/23/20 Lock Expert Goal (LTG) Pt will normalize gait pattern without walking boot and without assistive device to reduce risks associated with immobility LTG Duration 11/09/20 Assessment Summary Assessment pt responded well to ther ex, manual and gait. Initatied manual and self application on ROM to decrease calf and ankle tightness with good feedback results. Physical Therapy Plan Frequency and Duration Frequency of Treatment 2x/Week Duration of Treatment 2 months Plan of Care Start Date 09/14/20 Plan of Care End Date 11/14/20 Therapeutic Interventions Therapeutic Interventions Aquatic Therapy,Balance Training,Gait Training,Home Exercise Program,Joint Mobilizations,Manual Therapy, Neuromuscular Re-education, Orthotic/Prosthetic Management ,Patient/Caregiver Education, Self-Care/Home Management,Soft Tissue Mobilization,Taping, Therapeutic Activities, Therapeutic Exercises Modalities Cold Pack/Ice Massage Next Visit Focus/Plan Next Note Type Treatment Note Next Visit Plan Next tx: initiated TB strengthening, foot intrinsics . POC: progress gait training as able; consider removing heel lifts from boot for increased dorsiflexion; manual therapy and/or taping as tolerated for edema management
--- NOTE | 2020-09-23 07:30 | PT-OP ANOTE ---
Pt cancelled same day appt via left voice message, has the flu.
--- NOTE | 2020-10-04 13:45 | PT.OTN ---
Current Diagnoses Difficulty in walking, not elsewhere classified (10/04/20) Displaced trimalleolar fracture of left lower leg, subsequent encounter for closed fracture with routine healing (10/04/20) Unspecified sprain of right foot, sequela (10/04/20) Physical Therapy Treatment Note PT-OP-A Visit Information Start: 09/14/20 08:51 Freq: Status: Active Protocol: Document 10/04/20 13:45 AW (Rec: 10/04/20 13:48 AW [id number]) Out-Patient Physical Therapy Visit Information Visit Information Visit Type Treatment Note Visit Start Time 13:00 Visit Stop Time 13:42 Total Visit Minutes 42 Visit Number 4/8 Evaluation Information Evaluation Date 09/14/20 Precautions Precautions Weightbearing as tolerated LLE PT-OP-B Current Condition Start: 09/14/20 08:51 Freq: Status: Active Protocol: Document 09/14/20 16:45 AW (Rec: 09/14/20 08:59 AW [id number]) Current Condition History of Current Condition Onset Date 07/26/20 Current Complaints left ankle trimalleolar fracture s/p ORIF History of Current Condition Fay jumped over a fence on 07/26/20 and felt her left ankle buckle. She went to the ED where her fracture was identified. She had ORIF at [facility] on 07/29/20. Pt states her right foot was also fractured but was stable and treated conservatively. Per ortho, right foot has healed well. Her right foot gets sore and tight from time to time but overall feels good . She was cleared by ortho for WBAT with or without the western boot recently but has had limited tolerance for any weightbearing, reporting pain that jolts from her foot all the way up to her neck. Left ankle is still swollen. Pt has been icing 4x/day. She is using axillary crutches for community ambulation. She uses a 4WW to sit and scoot around her house. She has a wheelchair for longer distances. Incidentally, pt slipped and fell at work in 2017, injuring her left hip. She feels her ankle injury has exacerbated her left hip pain . can't put away dishes. grab bars and step stool as a shower chair. walking up to 300 feet on crutches before needing a break can rest foot on floor wearing FELIPA bandage at home ( no boot) and scooting with RLE three cushion pads in heel to accommodate lack of DF Prior Treatments and Tests ORIF 07/29/[address]quivel at [facility]. Treatment Goals Patient/Caregiver Goals Pt hopes to walk in some fashion at her wedding on September 27. 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 Current Functional Impairments (Reported) Functional Limitations- ADL's Needs grab bars and shower chair for showers, assist with LB dressing Functional Limitations- Mobility/Gait Using axillary crutches for limited ambulation Personal Factors Other Personal Factors That May Effect Positive prior experience with Therapy/Recovery PT PT-OP-C Subjective Start: 09/14/20 08:51 Freq: Status: Active Protocol: Document 10/04/20 13:45 AW (Rec: 10/04/20 13:48 AW [id number]) OP-PT Subjective Patient Comments Patient Comments Pt reports she walked down the aisle (10 feet) at her [place] wedding with her boot but no crutches. Still numb in her pinky toe. PT-OP-F Manual Assessment Start: 09/14/20 08:51 Freq: Status: Active Protocol: Document 09/14/20 16:45 AW (Rec: 09/14/20 17:08 AW [id number]) Manual Assessments Other Manual Assessments Other Manual Assessments Well healed surgical scar with one stitch remaining PT-OP-G Mobility & Gait Start: 09/14/20 08:51 Freq: Status: Active Protocol: Document 09/14/20 16:45 AW (Rec: 09/14/20 17:15 AW [id number]) OP Gait Assessment Gait Gait Assistance Required: Standby Assistance Distance (Feet) 100 Able to Maintain Weight Bearing Status Yes During Gait Assistive Devices Assistive Device Axillary Crutches Orthotic/Prosthetic Devices or Brace: Yes Gait Deviations General Gait Pattern Antalgic,Decreased Stride Length,Flexed Trunk,Step-to Gait Factors Limiting Gait Function Factors Limiting Gait Function Decreased Sensation,Decreased Strength,Pain,Poor Balance Comments Gait Comments Gait with boot and axillary crutches is antalgic and notable for decreased left knee extension, decreased hip extension, and step-to patterning. Pt has three heel pads in her western boot to accommodate her lack of DF. Stair Climbing Evaluation Comments Stair Climbing Comments Not assessed. PT-OP-J Posture/Palpation/Skin Start: 09/14/20 08:51 Freq: Status: Active Protocol: Document 09/14/20 16:45 AW (Rec: 09/14/20 17:15 AW [id number]) Skin Assessment Edema Assessment left ankle Edema Type Non-Pitting Subjective Edema Description Pain,Tightness Circumference Measurement right foot/ankle Comments MTP: 20.0 cm, midfoot 21.0 cm, malleoli 21.7 cm left foot/ankle Comments MTP: 20.6 cm, midfoot 21.0 cm, malleoli 24.3 cm PT-OP-K Range of Motion Start: 09/14/20 08:51 Freq: Status: Active Protocol: Document 10/04/20 13:45 AW (Rec: 10/04/20 16:00 AW [id number]) Ankle and Foot Goniometric Range of Motion Ankle and Foot left Testing Position Supine Dorsiflexion with Knee Extended 2 Inversion 20 Eversion 5 PT-OP-M Strength Start: 09/14/20 08:51 Freq: Status: Active Protocol: Document 09/14/20 16:45 AW (Rec: 09/14/20 17:22 AW [id number]) Hip Strength Hip Manual Muscle Testing bilateral Flexion (L2) 4+ Good+ Extension (S1) 4 Good Abduction 4 Good Adduction 4- Good- Knee Strength Knee Manual Muscle Testing Left Flexion (S2) 4- Good- Extension (L3) 4 Good Right Flexion (S2) 5 Normal Extension (L3) 5 Normal Ankle/Foot Strength Ankle and Foot Manual Muscle Testing Left Comments Not formally tested due to pain presentation Right Dorsiflexion (L4) 5 Normal Plantarflexion (S1) 5 Normal Inversion 5 Normal Eversion (S1) 5 Normal Toe Strength Toe Manual Muscle Testing Left Great Toe Flexion 4- Good- Extension 4- Good- PT-OP-Q Treatments Start: 09/14/20 08:51 Freq: Status: Active Protocol: Document 10/04/20 13:45 AW (Rec: 10/04/20 13:48 AW [id number]) Therapeutic Exercises 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 Side left Reps/Minutes 15 reps towel scrunch Sitting Exercise Name towel scrunch Side left Reps/Minutes 15 reps DF Stretch Sitting Exercise Name heel slide DF stretch Reps/Minutes 5x 5 sec hold BAPS Board Sitting Exercise Name PF/DF/IV/ EV/ CW/CCW Side left Resistance lvl 2 Reps/Minutes x8 reps each direction- Comments good feedback response feels less tight and able move more Gait Training Gait Activity 2 Device Used boot, 1- 2 axillary crutches Level of Assistance SBA Surface firm Distance/Duration 8 min Treatment Focus equalize step lengths, weight acceptance initial contact through mid stance Comments Improving step length and stance time in boot Manual Therapy Treatment Soft Tissue Mobilization anterior tibialis Body Location L Mobilization Type Sustained Pressure,Trigger Point Release Intensity/Depth Moderate Body Position Supine calf, achilles Body Location L Mobilization Type Myofascial Release,Sustained Pressure,Other Intensity/Depth Moderate Body Position Prone Joint Mobilizations scar mob Joint L Direction multidirectional Body Position Supine Comments Less sensitive this date. MTPs, talocrual, sup/pron forefoot Joint L Direction AP, med/ lat rotation Grade III Body Position Supine Comments Focused on posterior talar glide with active stretch. PT-OP-T Assessment and Plan Start: 09/14/20 08:51 Freq: Status: Active Protocol: Document 10/04/20 13:45 AW (Rec: 10/04/20 15:59 AW [email or web address]) Physical Therapy Assessment Impairments Impairments Balance,Edema,Functional Activities,Functional Mobility ,Gait,Pain,Posture,ROM, Sensation,Soft Tissue Mobility ,Strength,Transfers Goals painful gait Impairment painful gait Shelter Goal (LTG) Pt will ambulate 500 feet without walking boot or assistive device with normalized gait pattern and no increase in baseline pain. LTG Duration 11/09/20 edema Impairment swelling left ankle Glass Wool Blanket Machine Feeder Goal (LTG) Circumferential meaurements of left ankle will be within 0.5 cm of right side and stable over one week for improved pain management and ROM. LTG Duration 11/09/20 ROM Impairment pt lacks active dorsiflexion Short Term Goal (STG) Pt will improve left ankle dorsiflexion to neutral 10/04/20 - MET. Pt DF left ankle to 2 degrees past neutral. STG Duration 09/23/20 Glass Wool Blanket Machine Feeder Goal (LTG) Pt will improve left ankle active dorsiflexion to 8 degrees or greater for improved gait mechanics and stair management. LTG Duration 11/09/20 gait Impairment pt ambulates with B axillary crutches Short Term Goal (STG) Pt will normalize gait pattern with axillary crutches with or without walking boot 10/04/20 - PROGRESSING with boot. STG Duration 09/23/20 Shelter Goal (LTG) Pt will normalize gait pattern without walking boot and without assistive device to reduce risks associated with immobility LTG Duration 11/09/20 Assessment Summary Assessment Pt presents with greatly decreased irritability and pain this date. Improved dorsiflexion ROM to 2 degrees actively and 7 degrees after posterior talar glides. 1st MTP extension and flexion remain limited. Physical Therapy Plan Frequency and Duration Frequency of Treatment 2x/Week Duration of Treatment 2 months Plan of Care Start Date 09/14/20 Plan of Care End Date 11/14/20 Therapeutic Interventions Therapeutic Interventions Aquatic Therapy,Balance Training,Gait Training,Home Exercise Program,Joint Mobilizations,Manual Therapy, Neuromuscular Re-education, Orthotic/Prosthetic Management ,Patient/Caregiver Education, Self-Care/Home Management,Soft Tissue Mobilization,Taping, Therapeutic Activities, Therapeutic Exercises Next Visit Focus/Plan Next Note Type Treatment Note Next Visit Plan Next tx: initiate TB strengthening, foot intrinsics . POC: progress gait training as able;
--- NOTE | 2020-10-06 15:16 | PT.OTN ---
Current Diagnoses Difficulty in walking, not elsewhere classified (10/06/20) Displaced trimalleolar fracture of left lower leg, subsequent encounter for closed fracture with routine healing (10/06/20) Unspecified sprain of right foot, sequela (10/06/20) Physical Therapy Treatment Note PT-OP-A Visit Information Start: 09/14/20 08:51 Freq: Status: Active Protocol: Document 10/06/20 14:30 DCW (Rec: 10/06/20 15:16 DCW [id number]) Out-Patient Physical Therapy Visit Information Visit Information Visit Type Treatment Note Visit Start Time 14:30 Visit Stop Time 15:15 Total Visit Minutes 45 Visit Number 5/8 Number of [employer] Visits 0 Evaluation Information Evaluation Date 09/14/20 Precautions Precautions Weightbearing as tolerated LLE PT-OP-B Current Condition Start: 09/14/20 08:51 Freq: Status: Active Protocol: Document 09/14/20 16:45 AW (Rec: 09/14/20 08:59 AW [email or web address]) Current Condition History of Current Condition Onset Date 07/26/20 Current Complaints left ankle trimalleolar fracture s/p ORIF History of Current Condition Fay jumped over a fence on 07/26/20 and felt her left ankle buckle. She went to the ED where her fracture was identified. She had ORIF at [facility] on 07/29/20. Pt states her right foot was also fractured but was stable and treated conservatively. Per ortho, right foot has healed well. Her right foot gets sore and tight from time to time but overall feels good . She was cleared by ortho for WBAT with or without the western boot recently but has had limited tolerance for any weightbearing, reporting pain that jolts from her foot all the way up to her neck. Left ankle is still swollen. Pt has been icing 4x/day. She is using axillary crutches for community ambulation. She uses a 4WW to sit and scoot around her house. She has a wheelchair for longer distances. Incidentally, pt slipped and fell at work in 2017, injuring her left hip. She feels her ankle injury has exacerbated her left hip pain . can't put away dishes. grab bars and step stool as a shower chair. walking up to 300 feet on crutches before needing a break can rest foot on floor wearing FELIPA bandage at home ( no boot) and scooting with RLE three cushion pads in heel to accommodate lack of DF Prior Treatments and Tests ORIF 07/29/[address] Esquivel at [facility]. Treatment Goals Patient/Caregiver Goals Pt hopes to walk in some fashion at her wedding on September 27. 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 Current Functional Impairments (Reported) Functional Limitations- ADL's Needs grab bars and shower chair for showers, assist with LB dressing Functional Limitations- Mobility/Gait Using axillary crutches for limited ambulation Personal Factors Other Personal Factors That May Effect Positive prior experience with Therapy/Recovery PT PT-OP-C Subjective Start: 09/14/20 08:51 Freq: Status: Active Protocol: Document 10/06/20 14:30 DCW (Rec: 10/06/20 15:16 DCW [id number]) OP-PT Subjective Patient Comments Patient Comments I just saw my surgeon yesterday, she told me to get rid of the boot and the crutches. PT-OP-F Manual Assessment Start: 09/14/20 08:51 Freq: Status: Active Protocol: Document 09/14/20 16:45 AW (Rec: 09/14/20 17:08 AW [id number]) Manual Assessments Other Manual Assessments Other Manual Assessments Well healed surgical scar with one stitch remaining PT-OP-G Mobility & Gait Start: 09/14/20 08:51 Freq: Status: Active Protocol: Document 09/14/20 16:45 AW (Rec: 09/14/20 17:15 AW [id number]) OP Gait Assessment Gait Gait Assistance Required: Standby Assistance Distance (Feet) 100 Able to Maintain Weight Bearing Status Yes During Gait Assistive Devices Assistive Device Axillary Crutches Orthotic/Prosthetic Devices or Brace: Yes Gait Deviations General Gait Pattern Antalgic,Decreased Stride Length,Flexed Trunk,Step-to Gait Factors Limiting Gait Function Factors Limiting Gait Function Decreased Sensation,Decreased Strength,Pain,Poor Balance Comments Gait Comments Gait with boot and axillary crutches is antalgic and notable for decreased left knee extension, decreased hip extension, and step-to patterning. Pt has three heel pads in her western boot to accommodate her lack of DF. Stair Climbing Evaluation Comments Stair Climbing Comments Not assessed. PT-OP-J Posture/Palpation/Skin Start: 09/14/20 08:51 Freq: Status: Active Protocol: Document 09/14/20 16:45 AW (Rec: 09/14/20 17:15 AW [id number]) Skin Assessment Edema Assessment left ankle Edema Type Non-Pitting Subjective Edema Description Pain,Tightness Circumference Measurement right foot/ankle Comments MTP: 20.0 cm, midfoot 21.0 cm, malleoli 21.7 cm left foot/ankle Comments MTP: 20.6 cm, midfoot 21.0 cm, malleoli 24.3 cm PT-OP-K Range of Motion Start: 09/14/20 08:51 Freq: Status: Active Protocol: Document 10/04/20 13:45 AW (Rec: 10/04/20 16:00 AW [id number]) Ankle and Foot Goniometric Range of Motion Ankle and Foot left Testing Position Supine Dorsiflexion with Knee Extended 2 Inversion 20 Eversion 5 PT-OP-M Strength Start: 09/14/20 08:51 Freq: Status: Active Protocol: Document 09/14/20 16:45 AW (Rec: 09/14/20 17:22 AW [id number]) Hip Strength Hip Manual Muscle Testing bilateral Flexion (L2) 4+ Good+ Extension (S1) 4 Good Abduction 4 Good Adduction 4- Good- Knee Strength Knee Manual Muscle Testing Left Flexion (S2) 4- Good- Extension (L3) 4 Good Right Flexion (S2) 5 Normal Extension (L3) 5 Normal Ankle/Foot Strength Ankle and Foot Manual Muscle Testing Left Comments Not formally tested due to pain presentation Right Dorsiflexion (L4) 5 Normal Plantarflexion (S1) 5 Normal Inversion 5 Normal Eversion (S1) 5 Normal Toe Strength Toe Manual Muscle Testing Left Great Toe Flexion 4- Good- Extension 4- Good- PT-OP-Q Treatments Start: 09/14/20 08:51 Freq: Status: Active Protocol: Document 10/06/20 14:30 DCW (Rec: 10/06/20 15:16 DCW [id number]) Therapeutic Exercises Sitting Exercises 4-way ankle flexion Sitting Exercise Name DF/PF/Ev/Inv Side left Resistance Lv 2 Equipment Used T-band marble flower buncher or picker Sitting Exercise Name marble flower buncher or picker Side left Reps/Minutes 15 reps towel scrunch Sitting Exercise Name towel scrunch Side left Reps/Minutes 15 reps VASU Sitting Exercise Name Calf stretch Side left Equipment Used VASU BAPS Board Sitting Exercise Name PF/DF/IV/ EV/ CW/CCW Side left Resistance lvl 3 Reps/Minutes x8 reps each direction- Comments Switched to standing Standing Exercises Foam standing Standing Exercise Name DL stance on foam Equipment Used [place] foam Gait Training Gait Activity 1 Description Gait /s AD, boot Treatment Focus Increase L heel strike Manual Therapy Treatment Soft Tissue Mobilization anterior tibialis Body Location L Mobilization Type Sustained Pressure,Trigger Point Release Intensity/Depth Moderate Body Position Supine calf, achilles Body Location L Mobilization Type Myofascial Release,Sustained Pressure,Other Intensity/Depth Moderate Body Position Prone Joint Mobilizations scar mob Joint L Direction multidirectional Body Position Supine Comments Less sensitive this date. MTPs, talocrual, sup/pron forefoot Joint L Direction AP, med/ lat rotation Grade III Body Position Supine Comments Focused on posterior talar glide with active stretch. PT-OP-T Assessment and Plan Start: 09/14/20 08:51 Freq: Status: Active Protocol: Document 10/06/20 14:30 DCW (Rec: 10/06/20 15:16 DCW [id number]) Physical Therapy Assessment Impairments Impairments Balance,Edema,Functional Activities,Functional Mobility ,Gait,Pain,Posture,ROM, Sensation,Soft Tissue Mobility ,Strength,Transfers Goals painful gait Impairment painful gait Motorbike Courier Goal (LTG) Pt will ambulate 500 feet without walking boot or assistive device with normalized gait pattern and no increase in baseline pain. LTG Duration 11/09/20 edema Impairment swelling left ankle Retirement Goal (LTG) Circumferential meaurements of left ankle will be within 0.5 cm of right side and stable over one week for improved pain management and ROM. LTG Duration 11/09/20 ROM Impairment pt lacks active dorsiflexion Short Term Goal (STG) Pt will improve left ankle dorsiflexion to neutral 10/04/20 - MET. Pt DF left ankle to 2 degrees past neutral. STG Duration 09/23/20 Retirement Goal (LTG) Pt will improve left ankle active dorsiflexion to 8 degrees or greater for improved gait mechanics and stair management. LTG Duration 11/09/20 gait Impairment pt ambulates with B axillary crutches Short Term Goal (STG) Pt will normalize gait pattern with axillary crutches with or without walking boot 10/04/20 - PROGRESSING with boot. STG Duration 09/23/20 Retirement Goal (LTG) Pt will normalize gait pattern without walking boot and without assistive device to reduce risks associated with immobility LTG Duration 11/09/20 Assessment Summary Assessment Pt doing fairly well out of boot, still very stiff, takes quick steps on L to off-weight as quickly as she can, had some stiffness when attempting heel strike. Physical Therapy Plan Frequency and Duration Frequency of Treatment 2x/Week Duration of Treatment 2 months Plan of Care Start Date 09/14/20 Plan of Care End Date 11/14/20 Therapeutic Interventions Therapeutic Interventions Aquatic Therapy,Balance Training,Gait Training,Home Exercise Program,Joint Mobilizations,Manual Therapy, Neuromuscular Re-education, Orthotic/Prosthetic Management ,Patient/Caregiver Education, Self-Care/Home Management,Soft Tissue Mobilization,Taping, Therapeutic Activities, Therapeutic Exercises Next Visit Focus/Plan Next Note Type Treatment Note Next Visit Plan Next tx: initiate TB strengthening, foot intrinsics . POC: progress gait training as able;
--- NOTE | 2020-10-10 07:15 | PT-OP ANOTE ---
Pt called early am today to cancel appt, left message not feeling well.
--- NOTE | 2020-10-17 10:54 | PT.OTN ---
Current Diagnoses Difficulty in walking, not elsewhere classified (10/17/20) Displaced trimalleolar fracture of left lower leg, subsequent encounter for closed fracture with routine healing (10/17/20) Unspecified sprain of right foot, sequela (10/17/20) Physical Therapy Treatment Note PT-OP-A Visit Information Start: 09/14/20 08:51 Freq: Status: Active Protocol: Document 10/17/20 10:14 MA (Rec: 10/17/20 10:54 MA [id number]) Out-Patient Physical Therapy Visit Information Visit Information Visit Type Treatment Note Visit Note PT assess ankle for 5 min this tx session Visit Start Time 10:15 Visit Stop Time 11:03 Total Visit Minutes 48 Visit Number 6/8 Number of LATHE SCALPER OPERATOR Visits 1 Precautions Precautions Weightbearing as tolerated LLE PT-OP-B Current Condition Start: 09/14/20 08:51 Freq: Status: Active Protocol: Document 09/14/20 16:45 AW (Rec: 09/14/20 08:59 AW [id number]) Current Condition History of Current Condition Onset Date 07/26/20 Current Complaints left ankle trimalleolar fracture s/p ORIF History of Current Condition Fay jumped over a fence on 07/26/20 and felt her left ankle buckle. She went to the ED where her fracture was identified. She had ORIF at [facility] on 07/29/20. Pt states her right foot was also fractured but was stable and treated conservatively. Per ortho, right foot has healed well. Her right foot gets sore and tight from time to time but overall feels good . She was cleared by ortho for WBAT with or without the western boot recently but has had limited tolerance for any weightbearing, reporting pain that jolts from her foot all the way up to her neck. Left ankle is still swollen. Pt has been icing 4x/day. She is using axillary crutches for community ambulation. She uses a 4WW to sit and scoot around her house. She has a wheelchair for longer distances. Incidentally, pt slipped and fell at work in 2017, injuring her left hip. She feels her ankle injury has exacerbated her left hip pain . can't put away dishes. grab bars and step stool as a shower chair. walking up to 300 feet on crutches before needing a break can rest foot on floor wearing FELIPA bandage at home ( no boot) and scooting with RLE three cushion pads in heel to accommodate lack of DF Prior Treatments and Tests ORIF 07/29/[address] Esquivel at [facility]. Treatment Goals Patient/Caregiver Goals Pt hopes to walk in some fashion at her wedding on September 27. 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 Current Functional Impairments (Reported) Functional Limitations- ADL's Needs grab bars and shower chair for showers, assist with LB dressing Functional Limitations- Mobility/Gait Using axillary crutches for limited ambulation Personal Factors Other Personal Factors That May Effect Positive prior experience with Therapy/Recovery PT PT-OP-C Subjective Start: 09/14/20 08:51 Freq: Status: Active Protocol: Document 10/17/20 10:14 MA (Rec: 10/17/20 10:54 MA [id number]) OP-PT Subjective Patient Comments Patient Comments I rolled my L ankle yesterday when I was outside with the dog. It was swollen and I iced it so it's a little better today. PT-OP-F Manual Assessment Start: 09/14/20 08:51 Freq: Status: Active Protocol: Document 09/14/20 16:45 AW (Rec: 09/14/20 17:08 AW [id number]) Manual Assessments Other Manual Assessments Other Manual Assessments Well healed surgical scar with one stitch remaining PT-OP-G Mobility & Gait Start: 09/14/20 08:51 Freq: Status: Active Protocol: Document 09/14/20 16:45 AW (Rec: 09/14/20 17:15 AW [id number]) OP Gait Assessment Gait Gait Assistance Required: Standby Assistance Distance (Feet) 100 Able to Maintain Weight Bearing Status Yes During Gait Assistive Devices Assistive Device Axillary Crutches Orthotic/Prosthetic Devices or Brace: Yes Gait Deviations General Gait Pattern Antalgic,Decreased Stride Length,Flexed Trunk,Step-to Gait Factors Limiting Gait Function Factors Limiting Gait Function Decreased Sensation,Decreased Strength,Pain,Poor Balance Comments Gait Comments Gait with boot and axillary crutches is antalgic and notable for decreased left knee extension, decreased hip extension, and step-to patterning. Pt has three heel pads in her western boot to accommodate her lack of DF. Stair Climbing Evaluation Comments Stair Climbing Comments Not assessed. PT-OP-J Posture/Palpation/Skin Start: 09/14/20 08:51 Freq: Status: Active Protocol: Document 09/14/20 16:45 AW (Rec: 09/14/20 17:15 AW [id number]) Skin Assessment Edema Assessment left ankle Edema Type Non-Pitting Subjective Edema Description Pain,Tightness Circumference Measurement right foot/ankle Comments MTP: 20.0 cm, midfoot 21.0 cm, malleoli 21.7 cm left foot/ankle Comments MTP: 20.6 cm, midfoot 21.0 cm, malleoli 24.3 cm PT-OP-K Range of Motion Start: 09/14/20 08:51 Freq: Status: Active Protocol: Document 10/04/20 13:45 AW (Rec: 10/04/20 16:00 AW [id number]) Ankle and Foot Goniometric Range of Motion Ankle and Foot left Testing Position Supine Dorsiflexion with Knee Extended 2 Inversion 20 Eversion 5 PT-OP-M Strength Start: 09/14/20 08:51 Freq: Status: Active Protocol: Document 09/14/20 16:45 AW (Rec: 09/14/20 17:22 AW [id number]) Hip Strength Hip Manual Muscle Testing bilateral Flexion (L2) 4+ Good+ Extension (S1) 4 Good Abduction 4 Good Adduction 4- Good- Knee Strength Knee Manual Muscle Testing Left Flexion (S2) 4- Good- Extension (L3) 4 Good Right Flexion (S2) 5 Normal Extension (L3) 5 Normal Ankle/Foot Strength Ankle and Foot Manual Muscle Testing Left Comments Not formally tested due to pain presentation Right Dorsiflexion (L4) 5 Normal Plantarflexion (S1) 5 Normal Inversion 5 Normal Eversion (S1) 5 Normal Toe Strength Toe Manual Muscle Testing Left Great Toe Flexion 4- Good- Extension 4- Good- PT-OP-Q Treatments Start: 09/14/20 08:51 Freq: Status: Active Protocol: Document 10/17/20 10:14 MA (Rec: 10/17/20 10:54 MA [id number]) Therapeutic Exercises Sitting Exercises marble lease picker Sitting Exercise Name marble lease picker Side left Reps/Minutes 15 reps towel scrunch Sitting Exercise Name towel scrunch Side left Reps/Minutes 15 reps ROM Sitting Exercise Name Circles CW, CWW, PF, DF Side left Reps/Minutes x10 each direction BAPS Board Sitting Exercise Name PF/DF/IV/ EV/ CW/CCW Side left Resistance lvl 3 Reps/Minutes x8 reps each direction- Comments seated again today due to recent sprain Manual Therapy Treatment Soft Tissue Mobilization anterior tibialis Body Location L Mobilization Type Sustained Pressure,Trigger Point Release Intensity/Depth Moderate Body Position Supine calf, achilles Body Location L Mobilization Type Myofascial Release,Sustained Pressure,Other Intensity/Depth Moderate Body Position Prone PT-OP-R Modalities Start: 09/14/20 08:51 Freq: Status: Active Protocol: Document 10/17/20 10:14 MA (Rec: 10/17/20 10:54 MA [id number]) Hot Pack/Cold Pack Treatment CryoCuff Location L ankle Patient Position Supine Treatment Duration (minutes) 10 Patient Tolerance Good PT-OP-T Assessment and Plan Start: 09/14/20 08:51 Freq: Status: Active Protocol: Document 10/17/20 10:14 MA (Rec: 10/17/20 10:54 MA [id number]) Physical Therapy Assessment Goals painful gait Impairment painful gait Usp Goal (LTG) Pt will ambulate 500 feet without walking boot or assistive device with normalized gait pattern and no increase in baseline pain. LTG Duration 11/09/20 edema Impairment swelling left ankle Usp Goal (LTG) Circumferential meaurements of left ankle will be within 0.5 cm of right side and stable over one week for improved pain management and ROM. LTG Duration 11/09/20 ROM Impairment pt lacks active dorsiflexion Short Term Goal (STG) Pt will improve left ankle dorsiflexion to neutral 10/04/20 - MET. Pt DF left ankle to 2 degrees past neutral. STG Duration 09/23/20 Project Development Manager Goal (LTG) Pt will improve left ankle active dorsiflexion to 8 degrees or greater for improved gait mechanics and stair management. LTG Duration 11/09/20 gait Impairment pt ambulates with B axillary crutches Short Term Goal (STG) Pt will normalize gait pattern with axillary crutches with or without walking boot 10/04/20 - PROGRESSING with boot. STG Duration 09/23/20 Usp Goal (LTG) Pt will normalize gait pattern without walking boot and without assistive device to reduce risks associated with immobility LTG Duration 11/09/20 Assessment Summary Assessment Pt rolled ankle last night and shows bruising along medial L ankle with minor swelling. She has pain with inversion exercises today. Held off on strengthening exercises due to sprain and encouraged pt to go back to resting, elevating, and icing ankle, performing only gentle ROM exercises for next few days. PT assessed pt's ankle for 5 min during session and agreed to holding off on strengthening this tx. Physical Therapy Plan Frequency and Duration Frequency of Treatment 2x/Week Duration of Treatment 2 months Plan of Care Start Date 09/14/20 Plan of Care End Date 11/14/20 Therapeutic Interventions Therapeutic Interventions Aquatic Therapy,Balance Training,Gait Training,Home Exercise Program,Joint Mobilizations,Manual Therapy, Neuromuscular Re-education, Orthotic/Prosthetic Management ,Patient/Caregiver Education, Self-Care/Home Management,Soft Tissue Mobilization,Taping, Therapeutic Activities, Therapeutic Exercises Next Visit Focus/Plan Next Note Type Treatment Note Next Visit Plan Next tx: initiate TB strengthening, foot intrinsics . POC: progress gait training as able;
--- NOTE | 2020-10-20 13:47 | PT.OTN ---
Current Diagnoses Difficulty in walking, not elsewhere classified (10/20/20) Displaced trimalleolar fracture of left lower leg, subsequent encounter for closed fracture with routine healing (10/20/20) Unspecified sprain of right foot, sequela (10/20/20) Physical Therapy Treatment Note PT-OP-A Visit Information Start: 09/14/20 08:51 Freq: Status: Active Protocol: Document 10/20/20 13:02 SP (Rec: 10/20/20 15:42 SP [id number]) Out-Patient Physical Therapy Visit Information Visit Information Visit Type Treatment Note Visit Note 1 more tx allowed w/ insurance , recommending PN. Visit Start Time 13:02 Visit Stop Time 13:47 Total Visit Minutes 45 Visit Number 7/8 Number of SUPERVISING AIRPLANE PILOT Visits 2 PT-OP-B Current Condition Start: 09/14/20 08:51 Freq: Status: Active Protocol: Document 09/14/20 16:45 AW (Rec: 09/14/20 08:59 AW [id number]) Current Condition History of Current Condition Onset Date 07/26/20 Current Complaints left ankle trimalleolar fracture s/p ORIF History of Current Condition Fay jumped over a fence on 07/26/20 and felt her left ankle buckle. She went to the ED where her fracture was identified. She had ORIF at [facility] on 07/29/20. Pt states her right foot was also fractured but was stable and treated conservatively. Per ortho, right foot has healed well. Her right foot gets sore and tight from time to time but overall feels good . She was cleared by ortho for WBAT with or without the western boot recently but has had limited tolerance for any weightbearing, reporting pain that jolts from her foot all the way up to her neck. Left ankle is still swollen. Pt has been icing 4x/day. She is using axillary crutches for community ambulation. She uses a 4WW to sit and scoot around her house. She has a wheelchair for longer distances. Incidentally, pt slipped and fell at work in 2017, injuring her left hip. She feels her ankle injury has exacerbated her left hip pain . can't put away dishes. grab bars and step stool as a shower chair. walking up to 300 feet on crutches before needing a break can rest foot on floor wearing FELIPA bandage at home ( no boot) and scooting with RLE three cushion pads in heel to accommodate lack of DF Prior Treatments and Tests ORIF 07/29/[address] Esquivel at [facility]. Treatment Goals Patient/Caregiver Goals Pt hopes to walk in some fashion at her wedding on September 27. 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 Current Functional Impairments (Reported) Functional Limitations- ADL's Needs grab bars and shower chair for showers, assist with LB dressing Functional Limitations- Mobility/Gait Using axillary crutches for limited ambulation Personal Factors Other Personal Factors That May Effect Positive prior experience with Therapy/Recovery PT PT-OP-C Subjective Start: 09/14/20 08:51 Freq: Status: Active Protocol: Document 10/20/20 13:02 SP (Rec: 10/20/20 15:42 SP [id number]) OP-PT Subjective Patient Comments Patient Comments Pt stated L ankle still sore from rolling ankle pre last tx to let dog out but able to walk without boot but not normally with tightness but no pain. Mainly pain at night and getting a deep itching feeling alot med/ lateral tib/ fib. PT-OP-F Manual Assessment Start: 09/14/20 08:51 Freq: Status: Active Protocol: Document 09/14/20 16:45 AW (Rec: 09/14/20 17:08 AW [id number]) Manual Assessments Other Manual Assessments Other Manual Assessments Well healed surgical scar with one stitch remaining PT-OP-G Mobility & Gait Start: 09/14/20 08:51 Freq: Status: Active Protocol: Document 09/14/20 16:45 AW (Rec: 09/14/20 17:15 AW [id number]) OP Gait Assessment Gait Gait Assistance Required: Standby Assistance Distance (Feet) 100 Able to Maintain Weight Bearing Status Yes During Gait Assistive Devices Assistive Device Axillary Crutches Orthotic/Prosthetic Devices or Brace: Yes Gait Deviations General Gait Pattern Antalgic,Decreased Stride Length,Flexed Trunk,Step-to Gait Factors Limiting Gait Function Factors Limiting Gait Function Decreased Sensation,Decreased Strength,Pain,Poor Balance Comments Gait Comments Gait with boot and axillary crutches is antalgic and notable for decreased left knee extension, decreased hip extension, and step-to patterning. Pt has three heel pads in her western boot to accommodate her lack of DF. Stair Climbing Evaluation Comments Stair Climbing Comments Not assessed. PT-OP-J Posture/Palpation/Skin Start: 09/14/20 08:51 Freq: Status: Active Protocol: Document 09/14/20 16:45 AW (Rec: 09/14/20 17:15 AW [id number]) Skin Assessment Edema Assessment left ankle Edema Type Non-Pitting Subjective Edema Description Pain,Tightness Circumference Measurement right foot/ankle Comments MTP: 20.0 cm, midfoot 21.0 cm, malleoli 21.7 cm left foot/ankle Comments MTP: 20.6 cm, midfoot 21.0 cm, malleoli 24.3 cm PT-OP-K Range of Motion Start: 09/14/20 08:51 Freq: Status: Active Protocol: Document 10/04/20 13:45 AW (Rec: 10/04/20 16:00 AW [id number]) Ankle and Foot Goniometric Range of Motion Ankle and Foot left Testing Position Supine Dorsiflexion with Knee Extended 2 Inversion 20 Eversion 5 PT-OP-M Strength Start: 09/14/20 08:51 Freq: Status: Active Protocol: Document 09/14/20 16:45 AW (Rec: 09/14/20 17:22 AW [id number]) Hip Strength Hip Manual Muscle Testing bilateral Flexion (L2) 4+ Good+ Extension (S1) 4 Good Abduction 4 Good Adduction 4- Good- Knee Strength Knee Manual Muscle Testing Left Flexion (S2) 4- Good- Extension (L3) 4 Good Right Flexion (S2) 5 Normal Extension (L3) 5 Normal Ankle/Foot Strength Ankle and Foot Manual Muscle Testing Left Comments Not formally tested due to pain presentation Right Dorsiflexion (L4) 5 Normal Plantarflexion (S1) 5 Normal Inversion 5 Normal Eversion (S1) 5 Normal Toe Strength Toe Manual Muscle Testing Left Great Toe Flexion 4- Good- Extension 4- Good- PT-OP-Q Treatments Start: 09/14/20 08:51 Freq: Status: Active Protocol: Document 10/20/20 13:02 SP (Rec: 10/20/20 15:42 SP [id number]) Cardio Equipment Bicycle (Upright) Duration (Minutes) 5 Resistance 4 Seat Position 6 Other little tarsal popping but painfree, improved AROM Therapeutic Exercises Sitting Exercises LAQ Sitting Exercise Name added to HEP Side left Resistance TB #1 loop Reps/Minutes 5 reps, 2 sec hold x2 Comments good quad facilitation, no pain hamstring curl Sitting Exercise Name added to HEP Side left Resistance TB #1 Equipment Used 18 chair Reps/Minutes 5 reps x2 Comments good HS fac, no pain BAPS Board Sitting Exercise Name PF/DF/IV/ EV/ CW/CCW Side left Resistance lvl 3>4 Equipment Used (uses tennis ball at home) Reps/Minutes x8 reps each direction- Comments seated again today Standing Exercises heel toe walking Standing Exercise Name added to HEP Reps/Minutes 20 ft x3 laps- improved L knee stability and toe off w/ slow pace/quality Comments cued quad fac during mid stance, toe off into terminal stance ankle mobility Standing Exercise Name Tarsal mob, ROM into DF (added to HEP) Side left Resistance Tb #1 loop (self mob) Equipment Used loop around BLE LLE front or anchored posteriorly and LLE in back w/rail Reps/Minutes x5 Comments good feedback response,manual feels better but this can help do myself calf stretch Standing Exercise Name gastroc> achilles and into DF (added to HEP) Side left Resistance AAROM Equipment Used bottom step w/ B rail Reps/Minutes 20 sec or tolerance Comments limited DF ROM, found helpful heel raises Standing Exercise Name added to HEP Side left Equipment Used floor Comments good feedback response, cued even BLE Manual Therapy Treatment Joint Mobilizations med/ lateral malleolus Joint L Direction APs Grade I Body Position Sitting Comments gentle glide ROM, painfree MTPs, talocrual, sup/pron forefoot Joint L Direction AP, med/ lat rotation Grade II Body Position Supine Comments Focused on posterior talar glide with active stretch, instruction on how spouse can replicate to support DF mob ROM. Pain free. PT-OP-R Modalities Start: 09/14/20 08:51 Freq: Status: Active Protocol: Document 10/17/20 10:14 MA (Rec: 10/17/20 10:54 MA [id number]) Hot Pack/Cold Pack Treatment CryoCuff Location L ankle Patient Position Supine Treatment Duration (minutes) 10 Patient Tolerance Good PT-OP-T Assessment and Plan Start: 09/14/20 08:51 Freq: Status: Active Protocol: Document 10/20/20 13:02 SP (Rec: 10/20/20 15:42 SP [id number]) Physical Therapy Assessment Goals painful gait Impairment painful gait Cutting Pressman Goal (LTG) Pt will ambulate 500 feet without walking boot or assistive device with normalized gait pattern and no increase in baseline pain. LTG Duration 11/09/20 edema Impairment swelling left ankle Cutting Pressman Goal (LTG) Circumferential meaurements of left ankle will be within 0.5 cm of right side and stable over one week for improved pain management and ROM. LTG Duration 11/09/20 ROM Impairment pt lacks active dorsiflexion Short Term Goal (STG) Pt will improve left ankle dorsiflexion to neutral 10/04/20 - MET. Pt DF left ankle to 2 degrees past neutral. STG Duration 09/23/20 Alf Goal (LTG) Pt will improve left ankle active dorsiflexion to 8 degrees or greater for improved gait mechanics and stair management. LTG Duration 11/09/20 gait Impairment pt ambulates with B axillary crutches Short Term Goal (STG) Pt will normalize gait pattern with axillary crutches with or without walking boot 10/04/20 - PROGRESSING with boot. STG Duration 09/23/20 Alf Goal (LTG) Pt will normalize gait pattern without walking boot and without assistive device to reduce risks associated with immobility LTG Duration 11/09/20 Assessment Summary Assessment Pt arrived with rell bernal (boot DC 2 weeks ago), once comes to standing and forward locomotion, demonstrated antalgic without AD, decreased L LE DF and locked extension of L knee with noted instability into loading response and midstance, lacking toe off terminal stance. Initiated quad, HS and calf strengthening and self ankle mobility HEP, see ex today. Noted improvement in heel toe gait toward end tx. Educated pt on self mobs using TB loop and set up of spouse to perform APs of talocrual jt with good understanding and gentle small glides as provided during tx with great response that feels so good, wish I can do this to myself. Pt had good response to tx today, improved gait phase quality gait. Pt stated sore end of tx but felt activities performed today helping improve ROM and gait but still long to go, declined CP will do at home later. Pt continues to be limited in DF ROM translates to decreased toe off during gait, weakness in quad/ HS, not normal WB into LLE. Recommending continued PT if can get more visit to progress toward normal functional gait. Physical Therapy Plan Frequency and Duration Frequency of Treatment 2x/Week Duration of Treatment 2 months Plan of Care Start Date 09/14/20 Plan of Care End Date 11/14/20 Therapeutic Interventions Therapeutic Interventions Aquatic Therapy,Balance Training,Gait Training,Home Exercise Program,Joint Mobilizations,Manual Therapy, Neuromuscular Re-education, Orthotic/Prosthetic Management ,Patient/Caregiver Education, Self-Care/Home Management,Soft Tissue Mobilization,Taping, Therapeutic Activities, Therapeutic Exercises Next Visit Focus/Plan Next Note Type Treatment Note Next Visit Plan Assess response to ankle mobs, LAQ/ HS Tb LLE, heel raises, calf stretch off step, heel toe gait phases. POC: progress gait training and ROM L ankle DF as able.
--- NOTE | 2020-10-26 16:58 | PT.OTN ---
Current Diagnoses Difficulty in walking, not elsewhere classified (10/26/20) Displaced trimalleolar fracture of left lower leg, subsequent encounter for closed fracture with routine healing (10/26/20) Unspecified sprain of right foot, sequela (10/26/20) Physical Therapy Treatment Note PT-OP-A Visit Information Start: 09/14/20 08:51 Freq: Status: Active Protocol: Document 10/26/20 16:38 AW (Rec: 10/26/20 16:47 AW [id number]) Out-Patient Physical Therapy Visit Information Visit Information Visit Type Treatment Note Visit Note [facility] approved 12 visits on new authorization. Will use 5 remaining units on current auth and then schedule on new auth. Visit Start Time 16:04 Visit Stop Time 16:38 Total Visit Minutes 34 Precautions Precautions Weightbearing as tolerated LLE PT-OP-B Current Condition Start: 09/14/20 08:51 Freq: Status: Active Protocol: Document 09/14/20 16:45 AW (Rec: 09/14/20 08:59 AW [email or web address]) Current Condition History of Current Condition Onset Date 07/26/20 Current Complaints left ankle trimalleolar fracture s/p ORIF History of Current Condition Fay jumped over a fence on 07/26/20 and felt her left ankle buckle. She went to the ED where her fracture was identified. She had ORIF at [facility] on 07/29/20. Pt states her right foot was also fractured but was stable and treated conservatively. Per ortho, right foot has healed well. Her right foot gets sore and tight from time to time but overall feels good . She was cleared by ortho for WBAT with or without the western boot recently but has had limited tolerance for any weightbearing, reporting pain that jolts from her foot all the way up to her neck. Left ankle is still swollen. Pt has been icing 4x/day. She is using axillary crutches for community ambulation. She uses a 4WW to sit and scoot around her house. She has a wheelchair for longer distances. Incidentally, pt slipped and fell at work in 2017, injuring her left hip. She feels her ankle injury has exacerbated her left hip pain . can't put away dishes. grab bars and step stool as a shower chair. walking up to 300 feet on crutches before needing a break can rest foot on floor wearing FELIPA bandage at home ( no boot) and scooting with RLE three cushion pads in heel to accommodate lack of DF Prior Treatments and Tests ORIF 07/29/[address] Esquivel at [facility]. Treatment Goals Patient/Caregiver Goals Pt hopes to walk in some fashion at her wedding on September 27. 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 Current Functional Impairments (Reported) Functional Limitations- ADL's Needs grab bars and shower chair for showers, assist with LB dressing Functional Limitations- Mobility/Gait Using axillary crutches for limited ambulation Personal Factors Other Personal Factors That May Effect Positive prior experience with Therapy/Recovery PT PT-OP-C Subjective Start: 09/14/20 08:51 Freq: Status: Active Protocol: Document 10/26/20 16:38 AW (Rec: 10/26/20 16:47 AW [id number]) OP-PT Subjective Patient Comments Patient Comments Pt is walking almost entirely without AD, using the boot only for longer distance or shopping trips. She is having more pain on the outside of her ankle and has increased frequency of icing. PT-OP-F Manual Assessment Start: 09/14/20 08:51 Freq: Status: Active Protocol: Document 09/14/20 16:45 AW (Rec: 09/14/20 17:08 AW [id number]) Manual Assessments Other Manual Assessments Other Manual Assessments Well healed surgical scar with one stitch remaining PT-OP-G Mobility & Gait Start: 09/14/20 08:51 Freq: Status: Active Protocol: Document 09/14/20 16:45 AW (Rec: 09/14/20 17:15 AW [id number]) OP Gait Assessment Gait Gait Assistance Required: Standby Assistance Distance (Feet) 100 Able to Maintain Weight Bearing Status Yes During Gait Assistive Devices Assistive Device Axillary Crutches Orthotic/Prosthetic Devices or Brace: Yes Gait Deviations General Gait Pattern Antalgic,Decreased Stride Length,Flexed Trunk,Step-to Gait Factors Limiting Gait Function Factors Limiting Gait Function Decreased Sensation,Decreased Strength,Pain,Poor Balance Comments Gait Comments Gait with boot and axillary crutches is antalgic and notable for decreased left knee extension, decreased hip extension, and step-to patterning. Pt has three heel pads in her western boot to accommodate her lack of DF. Stair Climbing Evaluation Comments Stair Climbing Comments Not assessed. PT-OP-J Posture/Palpation/Skin Start: 09/14/20 08:51 Freq: Status: Active Protocol: Document 09/14/20 16:45 AW (Rec: 09/14/20 17:15 AW [id number]) Skin Assessment Edema Assessment left ankle Edema Type Non-Pitting Subjective Edema Description Pain,Tightness Circumference Measurement right foot/ankle Comments MTP: 20.0 cm, midfoot 21.0 cm, malleoli 21.7 cm left foot/ankle Comments MTP: 20.6 cm, midfoot 21.0 cm, malleoli 24.3 cm PT-OP-K Range of Motion Start: 09/14/20 08:51 Freq: Status: Active Protocol: Document 10/04/20 13:45 AW (Rec: 10/04/20 16:00 AW [id number]) Ankle and Foot Goniometric Range of Motion Ankle and Foot left Testing Position Supine Dorsiflexion with Knee Extended 2 Inversion 20 Eversion 5 PT-OP-M Strength Start: 09/14/20 08:51 Freq: Status: Active Protocol: Document 09/14/20 16:45 AW (Rec: 09/14/20 17:22 AW [id number]) Hip Strength Hip Manual Muscle Testing bilateral Flexion (L2) 4+ Good+ Extension (S1) 4 Good Abduction 4 Good Adduction 4- Good- Knee Strength Knee Manual Muscle Testing Left Flexion (S2) 4- Good- Extension (L3) 4 Good Right Flexion (S2) 5 Normal Extension (L3) 5 Normal Ankle/Foot Strength Ankle and Foot Manual Muscle Testing Left Comments Not formally tested due to pain presentation Right Dorsiflexion (L4) 5 Normal Plantarflexion (S1) 5 Normal Inversion 5 Normal Eversion (S1) 5 Normal Toe Strength Toe Manual Muscle Testing Left Great Toe Flexion 4- Good- Extension 4- Good- PT-OP-Q Treatments Start: 09/14/20 08:51 Freq: Status: Active Protocol: Document 10/26/20 16:38 AW (Rec: 10/26/20 16:47 AW [id number]) Cardio Equipment Bicycle (Upright) Duration (Minutes) 5 Resistance 5 Seat Position 4 Other tolerated without clicking/ pain Therapeutic Exercises Sitting Exercises LAQ Sitting Exercise Name HEP review Side left Resistance TB #1 loop Reps/Minutes 5 reps, 2 sec hold x2 Comments good quad facilitation, no pain hamstring curl Sitting Exercise Name HEP review Side left Resistance TB #1 Equipment Used 18 chair Reps/Minutes 5 reps x2 Comments good HS fac, no pain BAPS Board Sitting Exercise Name PF/DF/IV/ EV/ CW/CCW Side left Resistance lvl 3 Equipment Used (uses tennis ball at home) Reps/Minutes x8 reps each direction- Comments seated again today Standing Exercises heel toe walking Standing Exercise Name added to HEP Reps/Minutes 20 ft x3 laps- improved L knee stability and toe off w/ slow pace/quality Comments cued heelstrike initial contact; quad set stance phase Manual Therapy Treatment Soft Tissue Mobilization anterior tibialis Body Location L Mobilization Type Sustained Pressure,Trigger Point Release Intensity/Depth Moderate Body Position Supine calf, achilles Body Location L Mobilization Type Myofascial Release,Sustained Pressure,Other Intensity/Depth Moderate Body Position Prone Joint Mobilizations med/ lateral malleolus Joint L Direction APs Grade I Body Position Sitting Comments gentle glide ROM, painfree MTPs, talocrual, sup/pron forefoot Joint L Direction AP, med/ lat rotation Grade II Body Position Supine Comments Focused on forefoot mobility this session with education for great toe flexion self-mob PT-OP-R Modalities Start: 09/14/20 08:51 Freq: Status: Active Protocol: Document 10/17/20 10:14 MA (Rec: 10/17/20 10:54 MA [id number]) Hot Pack/Cold Pack Treatment CryoCuff Location L ankle Patient Position Supine Treatment Duration (minutes) 10 Patient Tolerance Good PT-OP-T Assessment and Plan Start: 09/14/20 08:51 Freq: Status: Active Protocol: Document 10/26/20 16:38 AW (Rec: 10/26/20 16:58 AW [email or web address]) Physical Therapy Assessment Goals painful gait Impairment painful gait Poultry Husbandman Goal (LTG) Pt will ambulate 500 feet without walking boot or assistive device with normalized gait pattern and no increase in baseline pain. LTG Duration 11/09/20 edema Impairment swelling left ankle Poultry Husbandman Goal (LTG) Circumferential meaurements of left ankle will be within 0.5 cm of right side and stable over one week for improved pain management and ROM. LTG Duration 11/09/20 ROM Impairment pt lacks active dorsiflexion Short Term Goal (STG) Pt will improve left ankle dorsiflexion to neutral 10/04/20 - MET. Pt DF left ankle to 2 degrees past neutral. STG Duration 09/23/20 [facility] Goal (LTG) Pt will improve left ankle active dorsiflexion to 8 degrees or greater for improved gait mechanics and stair management. LTG Duration 11/09/20 gait Impairment pt ambulates with B axillary crutches Short Term Goal (STG) Pt will normalize gait pattern with axillary crutches with or without walking boot 10/04/20 - PROGRESSING with boot. STG Duration 09/23/20 Poultry Husbandman Goal (LTG) Pt will normalize gait pattern without walking boot and without assistive device to reduce risks associated with immobility LTG Duration 11/09/20 Assessment Summary Assessment Pt is now ambulating without assistive device or walking boot ~90% of the time. Gait continues to be antalgic, ROM especially into dorsiflexion remains limited. Pt demonstrating weakness of proximal musculature related to immobilization and will benefit from continued PT to regain ROM, improve LE strength, and normalize gait pattern. Physical Therapy Plan Frequency and Duration Frequency of Treatment 2x/Week Duration of Treatment 2 months Plan of Care Start Date 09/14/20 Plan of Care End Date 11/14/20 Therapeutic Interventions Therapeutic Interventions Aquatic Therapy,Balance Training,Gait Training,Home Exercise Program,Joint Mobilizations,Manual Therapy, Neuromuscular Re-education, Orthotic/Prosthetic Management ,Patient/Caregiver Education, Self-Care/Home Management,Soft Tissue Mobilization,Taping, Therapeutic Activities, Therapeutic Exercises Next Visit Focus/Plan Next Note Type Treatment Note Next Visit Plan Review and progress proximal strengthening HEP, continue gait training
--- NOTE | 2020-10-31 13:16 | PT-OP ANOTE ---
Pt did not show for today's appt, is the last appt scheduled. PANEL LAMINATOR left voice message regarding no show 1300 appt today, please to schedule more appts none scheduled at this time. Have new authorization with visits through January. PANEL LAMINATOR commented that there is a new compliance contract with regard to no shows and front man will talk more about when call back to schedule appts. PT/PANEL LAMINATOR recommended 1 more appt this week, then 1x/wk for 3-4 weeks.
--- NOTE | 2020-11-04 16:23 | PT-OP ANOTE ---
SOCIAL INSURANCE SPECIALIST left message recommending calling and add appts, [facility] has 2 openings [phone] and [phone] on Saturday.
--- NOTE | 2020-12-08 09:31 | PT.OPDS ---
Current Diagnoses Difficulty in walking, not elsewhere classified (10/26/20) Displaced trimalleolar fracture of left lower leg, subsequent encounter for closed fracture with routine healing (10/26/20) Unspecified sprain of right foot, sequela (10/26/20) Visit Care Team Role Provider Type Frida Johnson MD Family Provider Physician Primary Care Provider Specialty: Family Practice Address: [address] [place] [address], [facility] [place], [address] Email: [email or web address] Jordana Esquivel MD Attending Provider Physician Referring Provider Specialty: Orthopedic Surgery Address: [address] [place] [address], [place], [address] Email: @[employer] Visit Number Visit Number 09/22 Discharge Summary PT-OP-B Current Condition Start: 09/14/20 08:51 Freq: Status: Active Protocol: Document 09/14/20 16:45 AW (Rec: 09/14/20 08:59 AW [email or web address]) Current Condition History of Current Condition Onset Date 07/26/20 Current Complaints left ankle trimalleolar fracture s/p ORIF History of Current Condition Fay jumped over a fence on 07/26/20 and felt her left ankle buckle. She went to the ED where her fracture was identified. She had ORIF at [facility] on 07/29/20. Pt states her right foot was also fractured but was stable and treated conservatively. Per ortho, right foot has healed well. Her right foot gets sore and tight from time to time but overall feels good . She was cleared by ortho for WBAT with or without the western boot recently but has had limited tolerance for any weightbearing, reporting pain that jolts from her foot all the way up to her neck. Left ankle is still swollen. Pt has been icing 4x/day. She is using axillary crutches for community ambulation. She uses a 4WW to sit and scoot around her house. She has a wheelchair for longer distances. Incidentally, pt slipped and fell at work in 2017, injuring her left hip. She feels her ankle injury has exacerbated her left hip pain . can't put away dishes. grab bars and step stool as a shower chair. walking up to 300 feet on crutches before needing a break can rest foot on floor wearing FELIPA bandage at home ( no boot) and scooting with RLE three cushion pads in heel to accommodate lack of DF Prior Treatments and Tests ORIF 07/29/[address] Esquivel at [facility]. Treatment Goals Patient/Caregiver Goals Pt hopes to walk in some fashion at her wedding on September 27. 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 Current Functional Impairments (Reported) Functional Limitations- ADL's Needs grab bars and shower chair for showers, assist with LB dressing Functional Limitations- Mobility/Gait Using axillary crutches for limited ambulation Personal Factors Other Personal Factors That May Effect Positive prior experience with Therapy/Recovery PT PT-OP-C Subjective Start: 09/14/20 08:51 Freq: Status: Active Protocol: Document 10/26/20 16:38 AW (Rec: 10/26/20 16:47 AW [id number]) OP-PT Subjective Patient Comments Patient Comments Pt is walking almost entirely without AD, using the boot only for longer distance or shopping trips. She is having more pain on the outside of her ankle and has increased frequency of icing. PT-OP-F Manual Assessment Start: 09/14/20 08:51 Freq: Status: Active Protocol: Document 09/14/20 16:45 AW (Rec: 09/14/20 17:08 AW [id number]) Manual Assessments Other Manual Assessments Other Manual Assessments Well healed surgical scar with one stitch remaining PT-OP-G Mobility & Gait Start: 09/14/20 08:51 Freq: Status: Active Protocol: Document 09/14/20 16:45 AW (Rec: 09/14/20 17:15 AW [id number]) OP Gait Assessment Gait Gait Assistance Required: Standby Assistance Distance (Feet) 100 Able to Maintain Weight Bearing Status Yes During Gait Assistive Devices Assistive Device Axillary Crutches Orthotic/Prosthetic Devices or Brace: Yes Gait Deviations General Gait Pattern Antalgic,Decreased Stride Length,Flexed Trunk,Step-to Gait Factors Limiting Gait Function Factors Limiting Gait Function Decreased Sensation,Decreased Strength,Pain,Poor Balance Comments Gait Comments Gait with boot and axillary crutches is antalgic and notable for decreased left knee extension, decreased hip extension, and step-to patterning. Pt has three heel pads in her western boot to accommodate her lack of DF. Stair Climbing Evaluation Comments Stair Climbing Comments Not assessed. PT-OP-J Posture/Palpation/Skin Start: 09/14/20 08:51 Freq: Status: Active Protocol: Document 09/14/20 16:45 AW (Rec: 09/14/20 17:15 AW [id number]) Skin Assessment Edema Assessment left ankle Edema Type Non-Pitting Subjective Edema Description Pain,Tightness Circumference Measurement right foot/ankle Comments MTP: 20.0 cm, midfoot 21.0 cm, malleoli 21.7 cm left foot/ankle Comments MTP: 20.6 cm, midfoot 21.0 cm, malleoli 24.3 cm PT-OP-K Range of Motion Start: 09/14/20 08:51 Freq: Status: Active Protocol: Document 10/04/20 13:45 AW (Rec: 10/04/20 16:00 AW [id number]) Ankle and Foot Goniometric Range of Motion Ankle and Foot left Testing Position Supine Dorsiflexion with Knee Extended 2 Inversion 20 Eversion 5 PT-OP-M Strength Start: 09/14/20 08:51 Freq: Status: Active Protocol: Document 09/14/20 16:45 AW (Rec: 09/14/20 17:22 AW [id number]) Hip Strength Hip Manual Muscle Testing bilateral Flexion (L2) 4+ Good+ Extension (S1) 4 Good Abduction 4 Good Adduction 4- Good- Knee Strength Knee Manual Muscle Testing Left Flexion (S2) 4- Good- Extension (L3) 4 Good Right Flexion (S2) 5 Normal Extension (L3) 5 Normal Ankle/Foot Strength Ankle and Foot Manual Muscle Testing Left Comments Not formally tested due to pain presentation Right Dorsiflexion (L4) 5 Normal Plantarflexion (S1) 5 Normal Inversion 5 Normal Eversion (S1) 5 Normal Toe Strength Toe Manual Muscle Testing Left Great Toe Flexion 4- Good- Extension 4- Good- PT-OP-T Assessment and Plan Start: 09/14/20 08:51 Freq: Status: Active Protocol: Document 12/08/20 09:28 AW (Rec: 12/08/20 09:31 AW [id number]) Physical Therapy Plan Discharge Physical Therapy Discharge Reasons No Longer Attending PT Discharge Comments Received insurance authorization for more PT visits. Repeated attempts to contact pt for further scheduling went un-returned. Pt was last seen on 10/26/20. Now discharging after failed attempts to schedule.
== END 2020-12-08 10:16 | disposition home or self-care (01) ==
LOC: PHYS 16:00
PROVIDERS: Family Provider Family Medicine; PCP Family Medicine; Referring Provider Orthopaedic Surgery; Visit Provider Orthopaedic Surgery
DX: S82.852D Displaced trimalleolar fracture of left lower leg, subsequent encounter for closed fracture with routine healing (principal); S93.601S Unspecified sprain of right foot, sequela; R26.2 Difficulty in walking, not elsewhere classified
CPT/HCPCS: 97110; 97116; 97140; 97161; 97535

== ENCOUNTER 2021-01-28 15:49 | Emergency (ER) | payer OTHER, MEDICAID, SELFPAY ==
[2021-01-28 15:53] VITALS: BP 154/65; PULSE 96; RESP 14; TEMP 36.8; O2SAT 100; BMI 22.3
[2021-01-28 16:29] LABS: Bacteria Urine Many (>30); Culture Indicated Urine Specimen Cultured; RBC Urine 1-5/HPF (0-5/HPF); Squamous Epithelial Cell Urine 1-5 /HPF (0-5/HPF); WBC Urine 30-100/HPF (0-5/HPF)
--- NOTE | 2021-01-28 17:00 | ED.FEMALEGU ---
HPI - Female Genitourinary <Joe Robles MD - Last Filed: 02/03/21 07:11> General Chief complaint: Urogenital-Female Stated complaint: KIDNEY INFECTION Time Seen by Provider: 01/28/21 16:52 Source: patient Mode of arrival: Ambulatory Limitations: no limitations History of Present Illness HPI Narrative: The patient developed dysuria yesterday, accompanied by right back pain. She has nausea without emesis. She has no fever. She has no hematuria with the dysuria. She has a history of pyelonephritis. She has pain radiating to her abdomen. She tolerated breakfast this morning without pain or emesis. She has no diarrhea or constipation. She is not . She is status post bilateral oophorectomy. She has no URI symptoms, no headache, sore throat or fever. She has no other illness. Related Data Home Medications Medication Instructions Recorded Confirmed ibuprofen 400 mg tablet 400 mg PO Q6H 07/29/20 07/29/20 Previous Rx's Medication Instructions Recorded oxycodone-acetaminophen 5 mg-325 1 tab PO Q4-6H PRN #10 tab 10/10/18 mg tablet (Percocet) aspirin 81 mg tablet,delayed 81 mg PO BID #60 tab 07/29/20 release (Aspirin Low Dose) oxycodone-acetaminophen 5 mg-325 1 tab PO Q4-6H PRN #30 tab 07/29/20 mg tablet (Percocet) cephalexin 500 mg capsule 500 mg PO BID 7 Days #14 cap 01/28/21 oxycodone-acetaminophen 5 mg-325 1 tab PO Q6H PRN #10 tab 01/28/21 mg tablet (Percocet) Allergies Allergy/AdvReac Type Severity Reaction Status Date / Time Sulfa (Sulfonamide Allergy Severe ANAPHYLACTI Verified 01/28/21 15:58 Antibiotics) C Review of Systems <Joe Robles MD - Last Filed: 02/03/21 07:11> Constitutional Constitutional: Reports anorexia, Denies chills and Denies fever(s) ENT Ears, Nose, Mouth, and Throat: Denies vertigo, Denies dizziness, Denies dry mouth and Denies sore throat Cardiovascular Cardiovascular: Denies chest pain, Reports rapid heart rate and Denies dyspnea Respiratory Respiratory: Denies cough and Denies dyspnea Gastrointestinal Gastrointestinal: Reports as per HPI, Reports nausea and Denies vomiting Comments: No suggest no GI bleed Genitourinary Genitourinary: Reports dysuria Comments: No hematuria Musculoskeletal Musculoskeletal: Reports back pain Integumentary/Breasts Skin/Breast: Denies pruritus, Denies lesions and Denies rash Neurologic Neurologic: Denies confusion, Denies vertigo and Denies dizziness Psychiatric Psychiatric: Denies confusion Hematologic/Lymphatic On Anticoagulants: No Patient History <Joe Robles MD - Last Filed: 02/03/21 07:11> Medical History (Updated 01/28/21 @ 20:24 by Dede Holliday DO) Chronic constipation History of pyelonephritis PTSD (post-traumatic stress disorder) Recurrent pyelonephritis Surgical History Status post dilation and curettage Status post tubal ligation Family History Brother Age: 28 Mental health problem Father Age: 63 Hypertension High cholesterol Mental health problem Grandmother Hypertension High cholesterol Mother Mental health problem Grandfather Heart disease Hypertension High cholesterol Stroke Grandmother Hypertension High cholesterol alcohol intake frequency: a few times a week Substance Use Type: marijuana Exam <Joe Robles MD - Last Filed: 02/03/21 07:11> Initial Vital Signs Initial Vital Signs: Vital Signs Temperature 98.2 F 01/28/21 15:53 Pulse Rate 96 H 01/28/21 15:53 Respiratory Rate 14 01/28/21 15:53 Blood Pressure 154/65 H 01/28/21 15:53 Pulse Oximetry 100 01/28/21 15:53 Const General: cooperative, in distress and ill appearing [facility] Head: normocephalic and atraumatic Face and sinus: normal facial exam Mouth: other (Dry oral mucosa) Throat: posterior oropharynx normal Eyes General: appearance normal, both eyes and all related structures Pupils: PERRL EOM: EOM intact bilaterally Other: No icterus Neck Neck: full ROM and supple Resp Effort & Inspection: normal respiratory effort Auscultation: clear to auscultation bilaterally Cardio Rate: regular rate Rhythm: regular rhythm Heart Sounds: S1 normal, S2 normal, no click and no murmurs GI Other: Right upper quadrant tenderness. No masses. No guarding or rebound. No masses. Back/Spine/Pelvis Back: CVA tenderness right Skin General: no rashes or lesions noted Neuro General: patient alert, patient awake and no focal motor deficits Extrem General: normal to inspection, no pedal edema and no calf tenderness Psych Mental Status: mental status grossly normal <Dede Holliday DO - Last Filed: 01/28/21 23:02> Initial Vital Signs Initial Vital Signs: Vital Signs Temperature 98.2 F 01/28/21 15:53 Pulse Rate 96 H 01/28/21 15:53 Respiratory Rate 14 01/28/21 15:53 Blood Pressure 154/65 H 01/28/21 15:53 Pulse Oximetry 100 01/28/21 15:53 Course <Joe Robles MD - Last Filed: 02/03/21 07:11> Course Course Narrative: The patient has pyuria, evaluation is consistent with pyelonephritis. However she has persistent right upper quadrant tenderness. I gave Dilaudid for pain, I will follow this with Toradol. LFTs are normal. Ultrasound will be ordered. Care will be transitioned to Dr. Holliday following change of shift. If she improves she can be discharged home on pain meds and antibiotics. Orders Ordered: Discontinued Medications Acetaminophen (Acetaminophen 325 Mg Tablet) 975 mg PO NOW ONE Stop: 01/28/21 19:46 Last Admin: 01/28/21 20:29 Dose: 975 mg Documented by: BETSY Cefazolin Sodium (Cephalexin 250 Mg Prepack) 1 bottle MISC SEEINSTR ONE Stop: 01/28/21 20:27 Last Admin: 01/28/21 20:30 Dose: 1 prepack Documented by: BETSY Hydromorphone HCl (Hydromorphone 1 Mg Inj) 1 mg IV Q15MIN PRN PRN Reason: Pain, Severe (7-10) Last Admin: 01/28/21 19:04 Dose: 1 mg Documented by: Admin: 01/28/21 17:39 Dose: 1 mg Documented by: GLORY Hydromorphone HCl (Hydromorphone 1 Mg Inj) 1 mg IV NOW ONE Stop: 01/28/21 19:46 Last Admin: 01/28/21 20:29 Dose: 1 mg Documented by: BETSY Sodium Chloride (Normal Saline 0.9%) 1,000 mls @ 1,000 mls/hr IV BOLUS ONE Stop: 01/28/21 17:59 Last Infusion: 01/28/21 20:34 Dose: 0 mls/hr Documented by: Admin: 01/28/21 17:40 Dose: 1,000 mls/hr Documented by: GLORY Ceftriaxone Sodium 1,000 mg/ (Sodium Chloride) 100 mls @ 200 mls/hr IV NOW ONE Stop: 01/28/21 17:01 Last Infusion: 01/28/21 18:44 Dose: 0 mls/hr Documented by: Admin: 01/28/21 17:39 Dose: 200 mls/hr Documented by: GLORY Ketorolac Tromethamine (Ketorolac 30 Mg/Ml Vial) 30 mg IV NOW ONE Stop: 01/28/21 18:57 Last Admin: 01/28/21 19:04 Dose: 30 mg Documented by: ZEHRA Oxycodone/Acetaminophen (Oxycodone/Apap 5/325 Prepack) 1 bottle MISC SEEINSTR ONE Stop: 01/28/21 20:27 Last Admin: 01/28/21 20:30 Dose: 1 bottle Documented by: BETSY Vital Signs Vital signs: Vital Signs - 8 hr 01/28/21 15:53 01/28/21 19:07 Temperature 98.2 F Pulse Rate 96 H 68 Respiratory Rate 14 18 Blood Pressure 154/65 H 112/57 L Pulse Oximetry 100 100 <Dede Holliday, - Last Filed: 01/28/21 23:02> Orders Ordered: Discontinued Medications Acetaminophen (Acetaminophen 325 Mg Tablet) 975 mg PO NOW ONE Stop: 01/28/21 19:46 Last Admin: 01/28/21 20:29 Dose: 975 mg Documented by: BETSY Cefazolin Sodium (Cephalexin 250 Mg Prepack) 1 bottle MISC SEEINSTR ONE Stop: 01/28/21 20:27 Last Admin: 01/28/21 20:30 Dose: 1 prepack Documented by: BETSY Hydromorphone HCl (Hydromorphone 1 Mg Inj) 1 mg IV Q15MIN PRN PRN Reason: Pain, Severe (7-10) Last Admin: 01/28/21 19:04 Dose: 1 mg Documented by: Admin: 01/28/21 17:39 Dose: 1 mg Documented by: GLORY Hydromorphone HCl (Hydromorphone 1 Mg Inj) 1 mg IV NOW ONE Stop: 01/28/21 19:46 Last Admin: 01/28/21 20:29 Dose: 1 mg Documented by: BETSY Sodium Chloride (Normal Saline 0.9%) 1,000 mls @ 1,000 mls/hr IV BOLUS ONE Stop: 01/28/21 17:59 Last Infusion: 01/28/21 20:34 Dose: 0 mls/hr Documented by: Admin: 01/28/21 17:40 Dose: 1,000 mls/hr Documented by: GLORY Ceftriaxone Sodium 1,000 mg/ (Sodium Chloride) 100 mls @ 200 mls/hr IV NOW ONE Stop: 01/28/21 17:01 Last Infusion: 01/28/21 18:44 Dose: 0 mls/hr Documented by: Admin: 01/28/21 17:39 Dose: 200 mls/hr Documented by: GLORY Ketorolac Tromethamine (Ketorolac 30 Mg/Ml Vial) 30 mg IV NOW ONE Stop: 01/28/21 18:57 Last Admin: 01/28/21 19:04 Dose: 30 mg Documented by: ZEHRA Oxycodone/Acetaminophen (Oxycodone/Apap 5/325 Prepack) 1 bottle MISC SEEINSTR ONE Stop: 01/28/21 20:27 Last Admin: 01/28/21 20:30 Dose: 1 bottle Documented by: BETSY Vital Signs Vital signs: Vital Signs - 8 hr 01/28/21 15:53 01/28/21 19:07 Temperature 98.2 F Pulse Rate 96 H 68 Respiratory Rate 14 18 Blood Pressure 154/65 H 112/57 L Pulse Oximetry 100 100 MDM - Female Genitourinary <Joe Robles MD - Last Filed: 02/03/21 07:11> Lab Data Result diagrams: 01/28/21 17:28 01/28/21 17:28 Labs: Lab Results 01/28/21 01/28/21 01/28/21 Range/Units 15:31 17:28 17:28 WBC 10.8 (4.5-11.0) X10^3/uL RBC 4.02 (4.0-5.2) X10^6/uL Hgb 13.0 (12.0-16.0) g/dL Hct 38.2 (36-46) % MCV 95.1 (80-100) fL MCH 32.4 (26-34) PG MCHC 34.0 (30-36) % RDW 13.6 (11.6-14.8) % Plt Count 337 (150-400) X10^3/uL Neut % (Auto) 67.1 (50-75) % Lymph % (Auto) 22.9 L (25-40) % Snyder % (Auto) 7.4 (3-14) % Eos % (Auto) 2.3 (2-4) % Baso % (Auto) 0.3 (0-2) % Neut # (Auto) 7200 H (5808-2507) /uL Lymph # (Auto) 2500 (6119-3073) /uL Snyder # (Auto) 800 (0-900) /uL Eos # (Auto) 300 (0-450) /uL Baso # (Auto) 0 (0-100) /uL Sodium 140 (137-145) mmol/L Potassium 4.0 (3.4-5.1) mmol/L Chloride 106 (98-107) mmol/L Carbon Dioxide 29 (22-32) mmol/L BUN 10 (7-17) mg/dL Creatinine 0.72 (0.52-1.04) mg/dL Estimated GFR > 60.0 (>60) mL/min BUN/Creatinine Ratio 13.9 (6-22) Glucose 91 (70-100) mg/dL Calcium 9.5 (8.4-10.2) mg/dL Total Bilirubin 0.4 (0.2-1.3) mg/dL AST 22 (14-36) IU/L ALT 13 (<35) IU/L Alkaline Phosphatase 41 (38-126) U/L Total Protein 7.3 (6.3-8.2) g/dL Albumin 4.3 (3.5-5.0) g/dL Globulin 3.0 (1.7-4.1) g/dL Albumin/Globulin Ratio 1.4 (1.0-2.8) Lipase 82 (23-300) U/L Urine RBC 1-5/hpf (0-5/HPF) Urine WBC 30-100/hpf H (0-5/HPF) Ur Squamous Epith Cells 1-5 /hpf (0-5/HPF) Urine Bacteria Many (>30) H (None) Ur Culture Indicated? Specimen cultured Point of Care Testing Test Results Negative Urine Dip Bedside Urine Glucose Negative Bedside Urine Bilirubin - Negative Bedside Urine Ketone - Negative Urine Specific [place] 1.015 Bedside Urine Occult Blood ++ Bedside Urine pH 7.0 Bedside Urine Protein +/- 15 Bedside Urine Urobilinogen - Negative Bedside Urine Nitrite + Positive Bedside Urine Leukocytes ++ 125 Esterase <Dede Holliday, DO - Last Filed: 01/28/21 23:02> Lab Data Labs: Lab Results 01/28/21 01/28/21 01/28/21 Range/Units 15:31 17:28 17:28 WBC 10.8 (4.5-11.0) X10^3/uL RBC 4.02 (4.0-5.2) X10^6/uL Hgb 13.0 (12.0-16.0) g/dL Hct 38.2 (36-46) % MCV 95.1 (80-100) fL MCH 32.4 (26-34) PG MCHC 34.0 (30-36) % RDW 13.6 (11.6-14.8) % Plt Count 337 (150-400) X10^3/uL Neut % (Auto) 67.1 (50-75) % Lymph % (Auto) 22.9 L (25-40) % Snyder % (Auto) 7.4 (3-14) % Eos % (Auto) 2.3 (2-4) % Baso % (Auto) 0.3 (0-2) % Neut # (Auto) 7200 H (2484-3928) /uL Lymph # (Auto) 2500 (2767-8634) /uL Snyder # (Auto) 800 (0-900) /uL Eos # (Auto) 300 (0-450) /uL Baso # (Auto) 0 (0-100) /uL Sodium 140 (137-145) mmol/L Potassium 4.0 (3.4-5.1) mmol/L Chloride 106 (98-107) mmol/L Carbon Dioxide 29 (22-32) mmol/L BUN 10 (7-17) mg/dL Creatinine 0.72 (0.52-1.04) mg/dL Estimated GFR > 60.0 (>60) mL/min BUN/Creatinine Ratio 13.9 (6-22) Glucose 91 (70-100) mg/dL Calcium 9.5 (8.4-10.2) mg/dL Total Bilirubin 0.4 (0.2-1.3) mg/dL AST 22 (14-36) IU/L ALT 13 (<35) IU/L Alkaline Phosphatase 41 (38-126) U/L Total Protein 7.3 (6.3-8.2) g/dL Albumin 4.3 (3.5-5.0) g/dL Globulin 3.0 (1.7-4.1) g/dL Albumin/Globulin Ratio 1.4 (1.0-2.8) Lipase 82 (23-300) U/L Urine RBC 1-5/hpf (0-5/HPF) Urine WBC 30-100/hpf H (0-5/HPF) Ur Squamous Epith Cells 1-5 /hpf (0-5/HPF) Urine Bacteria Many (>30) H (None) Ur Culture Indicated? Specimen cultured Point of Care Testing Test Results Negative Urine Dip Bedside Urine Glucose Negative Bedside Urine Bilirubin - Negative Bedside Urine Ketone - Negative Urine Specific [place] 1.015 Bedside Urine Occult Blood ++ Bedside Urine pH 7.0 Bedside Urine Protein +/- 15 Bedside Urine Urobilinogen - Negative Bedside Urine Nitrite + Positive Bedside Urine Leukocytes ++ 125 Esterase Imaging Data US - abdomen: Radiologist's Impression: PROCEDURE:? US ABDOMEN COMPLETE ? INDICATIONS:? RIGHT UPPER QUADRANT AND KIDNEY INFECTION ? TECHNIQUE:? Real-time scanning was performed of the abdominal and retroperitoneal organs, with image documentation.? ? COMPARISON:? [facility], , ABDOMEN COMPLETE, 08/20/2016, 17:21. ? FINDINGS:? ? Liver:? Liver is normal in size and homogeneous in echotexture.? ? Gallbladder:? The gallbladder is normal without stones, sludge, wall thickening, or pericholecystic fluid.? ? ? Biliary ducts:? Intrahepatic bile ducts are non-dilated.? Extrahepatic bile duct caliber measures six mm.? Normal is 6-7 mm or less in diameter, or 10 mm or less post-cholecystectomy.? ? Pancreas:? Visualized portions of the pancreas are sonographically normal.? ? Spleen:? Spleen is normal in size and homogeneous in echotexture.? ? Kidneys:? Kidneys are normal in size and echotexture.? Right kidney measures 10.9 cm long; left kidney measures 12.1 cm long.? No hydronephrosis or nephrolithiasis.? No solid masses.? ? Aorta:? Visualized aorta is normal in caliber at less than 3 cm.? ? Iliacs:? Proximal common iliac arteries are normal in caliber at less than 2.5 cm.? ? IVC:? Intrahepatic inferior vena cava is patent.? ? Miscellaneous:? No free abdominal fluid.? ? ? IMPRESSION:? 1. Normal abdominal ultrasound.? Dictated by: Melvina Roy M.D. on 01/28/2021 at 21:11 ? ? MDM Narrative Medical decision making narrative: Received sign-out from Dr. Robles. Seen and evaluated patient myself. She says she has frequent UTIs and has for most of her life they have been under control. She finally went to a urologist couple years ago she was told she had frequent UTI secondary to constipation so she has taken strategies to manage this. She says her symptoms started yesterday she was urinating blood. She has all-over abdominal pain including right upper quadrant pain left flank pain. She says this is typical for her. Her blood work overall reassuring she is not septic. She is not allowed to take NSAIDs secondary to her kidneys although her renal function and GFR within normal limits today. She has had couple doses dilaudid here in the ED which does do seem to help. 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 Patient's ultrasound is negative. At this time patient can be managed outpatient will discharge her home on Keflex and give her some Percocet for pain. Discharge Plan Departure Patient Disposition: Home Clinical Impression: UTI (urinary tract infection) Qualifiers: Urinary tract infection type: acute pyelonephritis Qualified Code(s): N10 - Acute pyelonephritis Instructions: DI for Kidney Infection Activity Restrictions/Additional Instructions: *You have been diagnosed with kidney infection *What to do: Your urine culture will take 2-3 days to return. If she do not hear anything from us that is good news. If we need to change antibiotic we will call you. *Continue to take medications as directed--> SENT TO [facility] Keflex 500 mg twice a day for 7 days Percocet 1 tab every 6 hours only if needed for severe pain *Follow up with your primary care provider in 2-3 days *Return to ER if you should have increasing pain, persistent vomiting or any new, worsening or concerning symptoms CONTROLLED SUBSTANCE DISCHARGE (Narcotoic/benzodiazepine/Flexeril/Phenergan) 1. You have been prescribed narcotic medications, it does have acetaminophen/Tylenol/paracetamol in it, DO NOT TAKE MORE THAN 4,00mg in 24 hours of Tylenol. TRAMADOL DOES NOT CONTAIN TYLENOL 2. Please understand that we cannot provide further refills of narcotics, benzodiazepines or controlled substances through the ED and her pain management will need to be through your provider. 3. While on these medications you cannot drive or operate heavy machinery. 4. You cannot sign legal documents or perform any duties such as this. 5. As long as you're taking opiate pain medications he should also be taking a stool softener such as Colace, Dulcolax, MiraLAX or prune juice, to help avoid constipation. Prescriptions: New cephalexin 500 mg capsule 500 mg PO BID 7 Days Qty: 14 0RF oxycodone-acetaminophen [Percocet] 5-325 mg tablet 1 tab PO Q6H PRN (Reason: pain) Qty: 10 0RF No Action ibuprofen 400 mg Tablet 400 mg PO Q6H 0RF aspirin [Aspirin Low Dose] 81 mg tablet,delayed release (DR/EC) 81 mg PO BID Qty: 60 0RF oxycodone-acetaminophen [Percocet] 5-325 mg tablet 1 tab PO Q4-6H PRN (Reason: pain) Qty: 30 0RF oxycodone-acetaminophen [Percocet] 5-325 mg tablet 1 tab PO Q4-6H PRN (Reason: pain) Qty: 10 0RF Referrals: Frida Johnson MD [Primary Care Provider] -
[2021-01-28] MEDS: cefTRIAXone 1,000 MG in SODIUM CHLORIDE 0.9% 100 ML 200 ML IV (17:39)
[2021-01-28] MEDS: HYDROMORPHONE 1 MG INJ IV ×3 (17:39→20:29)
[2021-01-28] MEDS: SODIUM CHLORIDE 0.9% 1,000 ML 1000 ML IV (17:40)
[2021-01-28 18:06] LABS: Add Manual Diff / Slide Review NO; Basophils Absolute Auto 0 /uL (0-100); Basophils Percent Auto 0.3 % (0-2); Eosinophils Absolute Auto 300 /uL (0-450); Eosinophils Percent Auto 2.3 % (2-4); Hematocrit 38.2 % (36-46); Lymphocytes Absolute Auto 2500 /uL (1100-4500); Lymphocytes Percent Auto 22.9 % (25-40); Mean Corpuscular Hemoglobin 32.4 PG (26-34); Mean Corpuscular Volume 95.1 fL (80-100); Monocytes Absolute Auto 800 /uL (0-900); Monocytes Percent Auto 7.4 % (3-14); Neutrophils Absolute Auto 7200 /uL (1500-7000); Neutrophils Percent Auto 67.1 % (50-75); Platelet Count 337 X10^3/uL (150-400); Red Blood Cell Count 4.02 X10^6/uL (4.0-5.2); Red Cell Distribution Width 13.6 % (11.6-14.8); White Blood Cell Count 10.8 X10^3/uL (4.5-11.0)
[2021-01-28 18:09] LABS: Alanine Aminotransferase 13 IU/L (<35); Albumin 4.3 g/dL (3.5-5.0); Albumin Globulin Ratio 1.4 (1.0-2.8); Alkaline Phosphatase 41 U/L (38-126); Aspartate Aminotransferase 22 IU/L (14-36); BUN Creatinine Ratio 13.9 (6-22); Bilirubin Total 0.4 mg/dL (0.2-1.3); Blood Urea Nitrogen 10 mg/dL (7-17); Calcium 9.5 mg/dL (8.4-10.2); Carbon Dioxide 29 mmol/L (22-32); Chloride 106 mmol/L (98-107); Estimated Glomerular Filt Rate > 60.0 mL/min (>60); Glucose 91 mg/dL (70-100); HEMOLYSIS < 15 (0-50); Lipase 82 U/L (23-300); Sodium 140 mmol/L (137-145); Total Protein 7.3 g/dL (6.3-8.2)
[2021-01-28] MEDS: KETOROLAC 30 MG/ML VIAL IV (19:04)
[2021-01-28 19:07] VITALS: BP 112/57; PULSE 68; RESP 18; O2SAT 100
--- NOTE | 2021-01-28 19:26 | DI.US.S_ITS ---
PROCEDURE: US ABDOMEN COMPLETE INDICATIONS: RIGHT UPPER QUADRANT AND KIDNEY INFECTION TECHNIQUE: Real-time scanning was performed of the abdominal and retroperitoneal organs, with image documentation. COMPARISON: [facility], US, ABDOMEN COMPLETE, 08/20/2016, 17:21. FINDINGS: Liver: Liver is normal in size and homogeneous in echotexture. Gallbladder: The gallbladder is normal without stones, sludge, wall thickening, or pericholecystic fluid. Biliary ducts: Intrahepatic bile ducts are non-dilated. Extrahepatic bile duct caliber measures six mm. Normal is 6-7 mm or less in diameter, or 10 mm or less post-cholecystectomy. Pancreas: Visualized portions of the pancreas are sonographically normal. Spleen: Spleen is normal in size and homogeneous in echotexture. Kidneys: Kidneys are normal in size and echotexture. Right kidney measures 10.9 cm long; left kidney measures 12.1 cm long. No hydronephrosis or nephrolithiasis. No solid masses. Aorta: Visualized aorta is normal in caliber at less than 3 cm. Iliacs: Proximal common iliac arteries are normal in caliber at less than 2.5 cm. IVC: Intrahepatic inferior vena cava is patent. Miscellaneous: No free abdominal fluid. IMPRESSION: 1. Normal abdominal ultrasound. Dictated by: Melvina Roy M.D. on 01/28/2021 at 21:11 Approved by: Melvina Roy M.D. on 01/28/2021 at 21:13
[2021-01-28] MEDS: ACETAMINOPHEN 325 MG TABLET 975 MG PO (20:29)
[2021-01-28] MEDS: OXYCODONE/APAP 5/325 PREPACK 1 BOTTLE MISC (20:30)
[2021-01-28] MEDS: cephALEXin 250 MG PREPACK 1 BOTTLE MISC (20:30)
--- NOTE | 2021-01-28 20:41 | PC.NURSE ---
Patient very tearful after US, when asked what was wrong patient stated the US lady was so rude to me, she was mad at us for eating. She really jammed into my stomach with the US probe Apologized to patient for her experience.
== END 2021-01-28 20:41 | disposition home or self-care (01) ==
PROVIDERS: Emergency Medicine; Emergency Provider Emergency Medicine; Family Provider Family Medicine; PCP Family Medicine
DX: N10 Acute pyelonephritis (principal)
CPT/HCPCS: 36415; 76700; 80053; 81003; 81015; 81025; 83690; 85025; 87077; 87086; 87186; 96361; 96365; 96375; 99284; J0696; J1170; J1885

== ENCOUNTER 2021-05-18 14:51 | Emergency (ER) | payer OTHER, MEDICAID, SELFPAY ==
[2021-05-18] VITALS (9 sets, daily range): BP systolic 116–138; BP diastolic 66–89; PULSE 75–102; RESP 18; TEMP 36.2; O2SAT 97–100; BMI 21.4
--- NOTE | 2021-05-18 15:09 | DI.RAD.S_ITS ---
PROCEDURE: XR CHEST 1V INDICATIONS: suspected sepsis TECHNIQUE: One view of the chest was acquired. COMPARISON: None. FINDINGS: Surgical changes and devices: None. Lungs and pleura: Lungs are clear. No pleural effusions or pneumothorax. Mediastinum: Mediastinal contours appear normal. Heart size is normal. Bones and chest wall: No suspicious bony lesions. Overlying soft tissues appear unremarkable. IMPRESSION: No acute cardiopulmonary pathology. Dictated by: Talat Andres M.D. on 05/18/2021 at 15:58 Approved by: Talat Andres M.D. on 05/18/2021 at 15:58
[2021-05-18 15:38] LABS: Bacteria Urine Few (2-10); Culture Indicated Urine Specimen Cultured; RBC Urine >100/HPF (0-5/HPF); WBC Urine 30-100/HPF (0-5/HPF)
[2021-05-18 15:39] LABS: Add Manual Diff / Slide Review NO; Basophils Absolute Auto 0 /uL (0-100); Basophils Percent Auto 0.4 % (0-2); Eosinophils Absolute Auto 0 /uL (0-450); Eosinophils Percent Auto 0.3 % (2-4); Hematocrit 39.5 % (36-46); Hemoglobin 13.5 g/dL (12.0-16.0); Lymphocytes Absolute Auto 1400 /uL (1100-4500); Lymphocytes Percent Auto 13.3 % (25-40); Mean Corpuscular HGB Conc 34.2 % (30-36); Mean Corpuscular Hemoglobin 32.7 PG (26-34); Mean Corpuscular Volume 95.6 fL (80-100); Monocytes Absolute Auto 800 /uL (0-900); Monocytes Percent Auto 7.2 % (3-14); Neutrophils Absolute Auto 8600 /uL (1500-7000); Neutrophils Percent Auto 78.8 % (50-75); Platelet Count 323 X10^3/uL (150-400); Red Blood Cell Count 4.13 X10^6/uL (4.0-5.2); Red Cell Distribution Width 13.9 % (11.6-14.8); White Blood Cell Count 10.9 X10^3/uL (4.5-11.0)
--- NOTE | 2021-05-18 15:49 | ED.FEMALEGU ---
HPI - Female Genitourinary General Chief complaint: Urogenital-Female Stated complaint: Really Bad Kidney Infection Time Seen by Provider: 05/18/21 15:34 Source: patient Mode of arrival: Ambulatory History of Present Illness HPI Narrative: Patient is a 40-year-old female who has a history of frequent UTIs presenting today with his hematuria of all over body pain back pain nausea overall not feeling well. She was treated for UTI on Keflex for 10 days she finished course 2 weeks ago. However 2 days ago started having pain and today he urinated blood. She did take azo 2 days ago but not today. She overall does not feel well. Denies any abnormal vaginal discharge. Related Data Home Medications Medication Instructions Recorded Confirmed ibuprofen 400 mg tablet 400 mg PO Q6H 07/29/20 07/29/20 Previous Rx's Medication Instructions Recorded oxycodone-acetaminophen 5 mg-325 1 tab PO Q4-6H PRN #10 tab 10/10/18 mg tablet (Percocet) aspirin 81 mg tablet,delayed 81 mg PO BID #60 tab 07/29/20 release (Aspirin Low Dose) oxycodone-acetaminophen 5 mg-325 1 tab PO Q4-6H PRN #30 tab 07/29/20 mg tablet (Percocet) oxycodone-acetaminophen 5 mg-325 1 tab PO Q6H PRN #10 tab 01/28/21 mg tablet (Percocet) levofloxacin 750 mg tablet 750 mg PO DAILY 5 Days tab 05/18/21 Allergies Allergy/AdvReac Type Severity Reaction Status Date / Time Sulfa (Sulfonamide Allergy Severe ANAPHYLACTI Verified 05/18/21 15:02 Antibiotics) C Review of Systems Review of Systems Narrative: GENERAL: Denies chills, fatigue, malaise, fever, sweats, travel HEENT: Denies sinus pain, ear pain, sore throat, difficulty swallowing, neck pain RESPIRATORY: Denies dyspnea, cough, wheezing, hemoptysis, sputum. CARDIOVASCULAR: Denies chest pain, palpitations, orthopnea, edema GASTROINTESTINAL: Denies nausea, vomiting, abdominal pain, diarrhea, constipation, melena. : See HPI MUSCULOSKELETAL: Denies weakness, joint pain, or bony pain SKIN: No rash, no erythema, no pruritus NEUROLOGIC: Denies weakness, dizziness, headache, numbness, change in speech, confusion PSYCHIATRIC: No concerning psychosocial issues. 12 point review of systems is negative except for those stated above and HPI Patient History Medical History Chronic constipation History of pyelonephritis PTSD (post-traumatic stress disorder) Recurrent pyelonephritis Surgical History Status post dilation and curettage Status post tubal ligation Family History Brother Age: 28 Mental health problem Father Age: 63 Hypertension High cholesterol Mental health problem Grandmother Hypertension High cholesterol Mother Mental health problem Grandfather Heart disease Hypertension High cholesterol Stroke Grandmother Hypertension High cholesterol alcohol intake frequency: holidays/special occasions only Substance Use Type: marijuana Exam Initial Vital Signs Initial Vital Signs: Vital Signs Temperature 97.1 F L 05/18/21 14:57 Pulse Rate 102 H 05/18/21 14:57 Respiratory Rate 18 05/18/21 14:57 Blood Pressure 138/89 05/18/21 14:57 Pulse Oximetry 99 05/18/21 14:57 GENERAL: Alert 40-year-old female appears uncomfortable slightly tearful HEENT: Head atraumatic,EOMI, pupils reactive, face symmetric, moist mucous membranes CARDIOVASCULAR: Regular rate and rhythm without murmurs, rubs or gallops. RESPIRATORY: Breath sounds equal bilaterally, no wheezes rales or rhonchi. ABDOMEN: Soft, diffusely tender no distension no guarding or rebound : Bilateral CVA tenderness EXTREMITIES: Normal range of motion, no clubbing or edema. Neurovascularly intact NEUROLOGICAL: Alert and oriented x4. SKIN: Warm, dry, no laceration, no petechiae, no rashes or lesions. Course Orders Ordered: ED Orders 05/18/21 15:01 Urine Culture Stat Urine Microscopic Stat 05/18/21 15:09 XR chest 1V Stat RT Consult Eval and Treat NOW 05/18/21 15:30 Complete Blood Count AUTO DIFF Stat Comprehensive Metabolic Panel Stat Lactate (Lactic Acid) Stat Lipase Stat Procalcitonin Stat 05/18/21 16:40 Blood Culture Stat Discontinued Medications Hydromorphone HCl (Hydromorphone 1 Mg Inj) 1 mg IV NOW ONE Stop: 05/18/21 16:50 Last Admin: 05/18/21 16:54 Dose: 1 mg Documented by: CAITIE Sodium Chloride (Normal Saline 0.9%) 1,000 mls @ 1,000 mls/hr IV BOLUS ONE Stop: 05/18/21 16:08 Last Infusion: 05/18/21 18:12 Dose: 0 mls/hr Documented by: Admin: 05/18/21 15:55 Dose: 1,000 mls/hr Documented by: CAITIE Levofloxacin (Levaquin) 750 mg in 150 mls @ 100 mls/hr IV NOW ONE Stop: 05/18/21 17:33 Last Infusion: 05/18/21 18:12 Dose: 0 mls/hr Documented by: Admin: 05/18/21 16:33 Dose: 100 mls/hr Documented by: CAITIE Ketorolac Tromethamine (Ketorolac 30 Mg/Ml Vial) 30 mg IV NOW ONE Stop: 05/18/21 16:05 Last Admin: 05/18/21 16:32 Dose: 30 mg Documented by: CAITIE Vital Signs Vital signs: Vital Signs - 8 hr 05/18/21 14:57 05/18/21 15:36 05/18/21 15:53 Temperature 97.1 F L Pulse Rate 102 H 94 H 87 Respiratory Rate 18 Blood Pressure 138/89 116/82 Pulse Oximetry 99 98 98 05/18/21 16:00 05/18/21 16:30 05/18/21 17:00 Temperature Pulse Rate 93 H 77 87 Respiratory Rate Blood Pressure 125/84 121/71 121/66 Pulse Oximetry 98 100 98 05/18/21 17:30 05/18/21 18:00 Temperature Pulse Rate 84 75 Respiratory Rate Blood Pressure 118/70 125/74 Pulse Oximetry 97 99 MDM - Female Genitourinary Lab Data Result diagrams: 05/18/21 15:30 05/18/21 15:30 Labs: Lab Results 05/18/21 05/18/21 05/18/21 Range/Units 15:01 15:30 15:30 WBC 10.9 (4.5-11.0) X10^3/uL RBC 4.13 (4.0-5.2) X10^6/uL Hgb 13.5 (12.0-16.0) g/dL Hct 39.5 (36-46) % MCV 95.6 (80-100) fL MCH 32.7 (26-34) PG MCHC 34.2 (30-36) % RDW 13.9 (11.6-14.8) % Plt Count 323 (150-400) X10^3/uL Neut % (Auto) 78.8 H (50-75) % Lymph % (Auto) 13.3 L (25-40) % [place] % (Auto) 7.2 (3-14) % Eos % (Auto) 0.3 L (2-4) % Baso % (Auto) 0.4 (0-2) % Neut # (Auto) 8600 H (4930-7343) /uL Lymph # (Auto) 1400 (5046-4375) /uL [place] # (Auto) 800 (0-900) /uL Eos # (Auto) 0 (0-450) /uL Baso # (Auto) 0 (0-100) /uL Sodium 140 (137-145) mmol/L Potassium 4.0 (3.4-5.1) mmol/L Chloride 106 (98-107) mmol/L Carbon Dioxide 24 (22-32) mmol/L BUN 11 (7-17) mg/dL Creatinine 0.61 (0.52-1.04) mg/dL Estimated GFR > 60.0 (>60) mL/min BUN/Creatinine Ratio 18.0 (6-22) Glucose 86 (70-100) mg/dL Lactate (0.7-2.1) mmol/L Calcium 9.3 (8.4-10.2) mg/dL Total Bilirubin 1.1 (0.2-1.3) mg/dL AST 30 (14-36) IU/L ALT 18 (<35) IU/L Alkaline Phosphatase 49 (38-126) U/L Total Protein 8.2 (6.3-8.2) g/dL Albumin 4.9 (3.5-5.0) g/dL Globulin 3.3 (1.7-4.1) g/dL Albumin/Globulin Ratio 1.5 (1.0-2.8) Lipase 87 (23-300) U/L Procalcitonin < 0.03 (<0.5) ng/mL Urine RBC >100/hpf H (0-5/HPF) Urine WBC 30-100/hpf H (0-5/HPF) Urine Bacteria Few (2-10) H (None) Ur Culture Indicated? Specimen cultured 05/18/21 Range/Units 15:30 WBC (4.5-11.0) X10^3/uL RBC (4.0-5.2) X10^6/uL Hgb (12.0-16.0) g/dL Hct (36-46) % MCV (80-100) fL MCH (26-34) PG MCHC (30-36) % RDW (11.6-14.8) % Plt Count (150-400) X10^3/uL Neut % (Auto) (50-75) % Lymph % (Auto) (25-40) % [place] % (Auto) (3-14) % Eos % (Auto) (2-4) % Baso % (Auto) (0-2) % Neut # (Auto) (7631-9601) /uL Lymph # (Auto) (7362-5517) /uL [place] # (Auto) (0-900) /uL Eos # (Auto) (0-450) /uL Baso # (Auto) (0-100) /uL Sodium (137-145) mmol/L Potassium (3.4-5.1) mmol/L Chloride (98-107) mmol/L Carbon Dioxide (22-32) mmol/L BUN (7-17) mg/dL Creatinine (0.52-1.04) mg/dL Estimated GFR (>60) mL/min BUN/Creatinine Ratio (6-22) Glucose (70-100) mg/dL Lactate 1.1 (0.7-2.1) mmol/L Calcium (8.4-10.2) mg/dL Total Bilirubin (0.2-1.3) mg/dL AST (14-36) IU/L ALT (<35) IU/L Alkaline Phosphatase (38-126) U/L Total Protein (6.3-8.2) g/dL Albumin (3.5-5.0) g/dL Globulin (1.7-4.1) g/dL Albumin/Globulin Ratio (1.0-2.8) Lipase (23-300) U/L Procalcitonin (<0.5) ng/mL Urine RBC (0-5/HPF) Urine WBC (0-5/HPF) Urine Bacteria (None) Ur Culture Indicated? MDM Narrative Medical decision making narrative: Patient overall does appear in pain but she is not septic. No leukocytosis she is afebrile her procalcitonin is actually negative on with her lactic acid. Urine does look infected. I do not have record of a recent urine or urine culture. The most recent I have is from January which was pansensitive. Will give her all Levaquin all. He is requesting Dilaudid for pain. Prescription monitoring does show that she occasionally gets opiate medications from emergency department last was given in January. She does have a primary care provider but has not been in to see her in over 5 years, I discussed with her she needs to be re-established Discharge Plan Departure Patient Disposition: Home Clinical Impression: UTI (urinary tract infection) Instructions: DI for Urinary Tract Infection (UTI) Activity Restrictions/Additional Instructions: *You have been diagnosed with UTI *What to do: Will try you on a different antibiotic. Culture is pending. If the antibiotic needs to be change he will call you in 2-3 days. Please increase your fluid intake. *Continue to take medications as directed Ibuprofen 800 mg every 8 hours if needed for [id number] Tylenol 1000 mg every 6 hours if needed for [id number] pain Levaquin 750 mg once daily for 5 days *Follow up with your primary care provider in 2-3 days or call [phone] Please call your PCP to reestablish care *Return to ER if you should have increasing pain, persistent vomiting, fever greater than 100.4 or any new, worsening or concerning symptoms Prescriptions: New levofloxacin 750 mg tablet 750 mg PO DAILY 5 Days 0RF No Action ibuprofen 400 mg Tablet 400 mg PO Q6H 0RF aspirin [Aspirin Low Dose] 81 mg tablet,delayed release (DR/EC) 81 mg PO BID Qty: 60 0RF oxycodone-acetaminophen [Percocet] 5-325 mg tablet 1 tab PO Q4-6H PRN (Reason: pain) Qty: 30 0RF oxycodone-acetaminophen [Percocet] 5-325 mg tablet 1 tab PO Q4-6H PRN (Reason: pain) Qty: 10 0RF oxycodone-acetaminophen [Percocet] 5-325 mg tablet 1 tab PO Q6H PRN (Reason: pain) Qty: 10 0RF Referrals: Frida Johnson MD [Primary Care Provider] -
[2021-05-18 15:50] LABS: Alanine Aminotransferase 18 IU/L (<35); Albumin 4.9 g/dL (3.5-5.0); Albumin Globulin Ratio 1.5 (1.0-2.8); Alkaline Phosphatase 49 U/L (38-126); Aspartate Aminotransferase 30 IU/L (14-36); Bilirubin Total 1.1 mg/dL (0.2-1.3); Blood Urea Nitrogen 11 mg/dL (7-17); Calcium 9.3 mg/dL (8.4-10.2); Carbon Dioxide 24 mmol/L (22-32); Chloride 106 mmol/L (98-107); Estimated Glomerular Filt Rate > 60.0 mL/min (>60); Globulin 3.3 g/dL (1.7-4.1); Glucose 86 mg/dL (70-100); HEMOLYSIS < 15 (0-50); Lactate (Lactic Acid) 1.1 mmol/L (0.7-2.1); Lipase 87 U/L (23-300); Sodium 140 mmol/L (137-145); Total Protein 8.2 g/dL (6.3-8.2)
[2021-05-18] MEDS: SODIUM CHLORIDE 0.9% 1,000 ML 1000 ML IV (15:55)
[2021-05-18 16:07] LABS: Procalcitonin < 0.03 ng/mL (<0.5)
[2021-05-18] MEDS: KETOROLAC 30 MG/ML VIAL IV (16:32)
[2021-05-18] MEDS: levoFLOXacin 750 MG/150 ML PIGGYBACK 100 MG IV (16:33)
[2021-05-18] MEDS: HYDROMORPHONE 1 MG INJ IV (16:54)
== END 2021-05-18 18:41 | disposition home or self-care (01) ==
PROVIDERS: Emergency Provider Emergency Medicine; Family Provider Family Medicine; PCP Family Medicine
DX: N39.0 Urinary tract infection, site not specified (principal); Z88.2 Allergy status to sulfonamides
CPT/HCPCS: 36415; 71045; 80053; 81015; 83605; 83690; 84145; 85025; 87040; 87086; 96361; 96365; 96366; 96375; 99284; J1170; J1885; J1956

== ENCOUNTER 2021-08-15 15:13 | Emergency (ER) | payer OTHER, MEDICAID, SELFPAY ==
[2021-08-15] VITALS (10 sets, daily range): BP systolic 103–140; BP diastolic 64–88; PULSE 59–106; RESP 14; TEMP 36.8; O2SAT 99–100; BMI 19.7
[2021-08-15] MEDS: ONDANSETRON 4 MG/2 ML INJ IV ×2 (16:07→22:36)
[2021-08-15 16:14] LABS: Add Manual Diff / Slide Review NO; Basophils Absolute Auto 0 /uL (0-100); Basophils Percent Auto 0.3 % (0-2); Eosinophils Absolute Auto 200 /uL (0-450); Eosinophils Percent Auto 1.7 % (2-4); Hemoglobin 14.4 g/dL (12.0-16.0); Lymphocytes Absolute Auto 1800 /uL (1100-4500); Lymphocytes Percent Auto 18.5 % (25-40); Mean Corpuscular HGB Conc 34.2 % (30-36); Mean Corpuscular Hemoglobin 32.9 PG (26-34); Mean Corpuscular Volume 96.2 fL (80-100); Monocytes Absolute Auto 800 /uL (0-900); Monocytes Percent Auto 8.7 % (3-14); Neutrophils Absolute Auto 6900 /uL (1500-7000); Neutrophils Percent Auto 70.8 % (50-75); Platelet Count 340 X10^3/uL (150-400); Red Blood Cell Count 4.37 X10^6/uL (4.0-5.2); White Blood Cell Count 9.7 X10^3/uL (4.5-11.0)
[2021-08-15 16:25] LABS: Alanine Aminotransferase 14 IU/L (<35); Albumin 4.8 g/dL (3.5-5.0); Albumin Globulin Ratio 1.4 (1.0-2.8); Alkaline Phosphatase 56 U/L (38-126); Aspartate Aminotransferase 23 IU/L (14-36); BUN Creatinine Ratio 17.8 (6-22); Bilirubin Total 0.5 mg/dL (0.2-1.3); Blood Urea Nitrogen 13 mg/dL (7-17); Calcium 9.6 mg/dL (8.4-10.2); Carbon Dioxide 28 mmol/L (22-32); Chloride 106 mmol/L (98-107); Estimated Glomerular Filt Rate > 60 mL/min (>60); Globulin 3.4 g/dL (1.7-4.1); Glucose 99 mg/dL (70-100); HEMOLYSIS < 15 (0-50); Lipase 90 U/L (23-300); Potassium 4.4 mmol/L (3.4-5.1); Sodium 139 mmol/L (137-145); Total Protein 8.2 g/dL (6.3-8.2)
[2021-08-15 16:31] LABS: Bacteria Urine None Seen; Culture Indicated Urine Cult Not Indicated; RBC Urine None Seen (0-5/HPF); WBC Urine None Seen (0-5/HPF)
--- NOTE | 2021-08-15 19:45 | DI.RAD.S_ITS ---
PROCEDURE: XR ACUTE ABDOMEN SERIES INDICATIONS: abdominal cramping with diarrhea TECHNIQUE: One view chest and two views of the abdomen were acquired. COMPARISON: None. FINDINGS: Surgical changes and devices: None. Chest: Lungs are clear. Heart size is normal. No pleural effusions. No pneumoperitoneum. Abdomen: Bowel gas pattern is normal. No suspicious calcifications. Bones: No suspicious bony lesions. IMPRESSION: 1. No acute intra-abdominal radiographic abnormality. Dictated by: Cornell Garcia M.D. on 08/15/2021 at 20:13 Approved by: Cornell Garcia M.D. on 08/15/2021 at 20:14
--- NOTE | 2021-08-15 21:26 | ED_ITS ---
HPI - General Adult General Chief complaint: Abdominal Pain Stated complaint: ABD pain right side, NVD Time Seen by Provider: 08/15/21 21:25 Source: patient Mode of arrival: Ambulatory History of Present Illness HPI narrative: Otherwise healthy 40-year-old woman presents with 4 days of increasing abdominal pain. In her lower pelvis localizing to the right lower quadrant. She states she has had nausea vomiting and diarrhea and feels that she can not pass any gas. She has no appetite. Only abdominal surgeries have been a bilateral tubal ligation followed by bilateral tubal removal with ovaries still in place. She denies chest pain palpitations. She notes that with the vomiting it is causing a headache. Her last meal was yesterday and was small. Related Data Home Medications Medication Instructions Recorded Confirmed ibuprofen 400 mg tablet 400 mg PO Q6H 07/29/20 08/15/21 Previous Rx's Medication Instructions Recorded oxycodone-acetaminophen 5 mg-325 1 tab PO Q4-6H PRN #10 tab 10/10/ mg tablet (Percocet) aspirin 81 mg tablet,delayed 81 mg PO BID #60 tab 07/29/20 release (Aspirin Low Dose) oxycodone-acetaminophen 5 mg-325 1 tab PO Q4-6H PRN #30 tab 07/29/ mg tablet (Percocet) oxycodone-acetaminophen 5 mg-325 1 tab PO Q6H PRN #10 tab //21 mg tablet (Percocet) Allergies Allergy/AdvReac Type Severity Reaction Status Date / Time Sulfa (Sulfonamide Allergy Severe ANAPHYLACTI Verified 08/15/21 15:56 Antibiotics) C Review of Systems Review of Systems Narrative: Remainder of complete review of systems is otherwise unremarkable except for that included in the HPI. Patient History Medical History Chronic constipation History of pyelonephritis PTSD (post-traumatic stress disorder) Recurrent pyelonephritis Surgical History Status post dilation and curettage Status post tubal ligation Family History Brother Age: 28 Mental health problem Father Age: 63 Hypertension High cholesterol Mental health problem Grandmother Hypertension High cholesterol Mother Mental health problem Grandfather Heart disease Hypertension High cholesterol Stroke Grandmother Hypertension High cholesterol Social History household members: significant other Smoking Status: Current every day smoker Smoking Status: Current every day smoker alcohol intake frequency: holidays/special occasions only Substance Use Type: marijuana Exam Initial Vital Signs Initial Vital Signs: Vital Signs Temperature 98.3 F 08/15/21 15:53 Pulse Rate 106 H 08/15/21 15:53 Respiratory Rate 14 08/15/21 15:53 Blood Pressure 126/74 08/15/21 15:53 Pulse Oximetry 99 08/15/21 15:53 General: Healthy appearing, in pain. Able to give a complete and coherent history. Well-nourished well-developed HEENT: Moist mucous membranes, normal sclera with reactive pupils, Neck: No JVD, supple Respiratory: Lungs are clear to auscultation, no wheezing no rales no rhonchi. Full and symmetrical air movement Cardiac: Regular rate and rhythm no murmurs no bruits Abdomen: Soft, significant tenderness in the lower quadrants with rebound in the right lower quadrant. Hypoactive bowel tones. Skin: Warm and dry, no rashes Neurologic: Grossly neurologically intact with no obvious asymmetries or abnormalities Extremities: No trauma, well perfused Psych: Cooperative, appropriate insight and affect Course Orders Ordered: ED Orders 08/15/21 15:58 Urine Microscopic Stat 08/15/21 16:04 Complete Blood Count AUTO DIFF Stat Comprehensive Metabolic Panel Stat Lipase Stat 08/15/21 19:45 XR acute abdomen series Stat 08/15/21 21:41 CT abdomen pelvis w con Stat Hydromorphone HCl (Hydromorphone 0.5 Mg Inj) 0.5 mg IV Q15MIN PRN PRN Reason: Pain, Last Admin: 08/15/21 22:36 Dose: 0.5 mg Documented by: BETSY Discontinued Medications Sodium Chloride (Normal Saline 0.9%) 1,000 mls @ 1,000 mls/hr IV BOLUS ONE Stop: 08/15/21 23:21 Last Infusion: 08/16/21 00:12 Dose: 0 mls/hr Documented by: Admin: 08/15/21 22:36 Dose: 1,000 mls/hr Documented by: BETSY Ondansetron HCl (Ondansetron 4 Mg/2 Ml Inj) 4 mg IV NOW ONE Stop: 08/15/21 16:06 Last Admin: 08/15/21 16:07 Dose: 4 mg Documented by: JONNY Ondansetron HCl (Ondansetron 4 Mg/2 Ml Inj) 4 mg IV NOW ONE Stop: 08/15/21 22:23 Last Admin: 08/15/21 22:36 Dose: 4 mg Documented by: BETSY Vital Signs Vital signs: Vital Signs - 8 hr 08/15/21 20:18 08/15/21 20:30 08/15/21 21:00 Pulse Rate 76 75 75 Blood Pressure 132/80 140/88 125/81 Pulse Oximetry 100 100 99 Medical Decision Making Lab Data Result diagrams: 08/15/21 16:04 08/15/21 16:04 Labs: Lab Results 08/15/21 08/15/21 08/15/21 Range/Units 15:58 16:04 16:04 WBC 9.7 (4.5-11.0) X10^3/uL RBC 4.37 (4.0-5.2) X10^6/uL Hgb 14.4 (12.0-16.0) g/dL Hct 42.0 (36-46) % MCV 96.2 (80-100) fL MCH 32.9 (26-34) PG MCHC 34.2 (30-36) % RDW 13.0 (11.6-14.8) % Plt Count 340 (150-400) X10^3/uL Neut % (Auto) 70.8 (50-75) % Lymph % (Auto) 18.5 L (25-40) % [place] % (Auto) 8.7 (3-14) % Eos % (Auto) 1.7 L (2-4) % Baso % (Auto) 0.3 (0-2) % Neut # (Auto) 6900 (4866-6224) /uL Lymph # (Auto) 1800 (1270-9912) /uL [place] # (Auto) 800 (0-900) /uL Eos # (Auto) 200 (0-450) /uL Baso # (Auto) 0 (0-100) /uL Sodium 139 (137-145) mmol/L Potassium 4.4 (3.4-5.1) mmol/L Chloride 106 (98-107) mmol/L Carbon Dioxide 28 (22-32) mmol/L BUN 13 (7-17) mg/dL Creatinine 0.73 (0.52-1.04) mg/dL Estimated GFR > 60 (>60) mL/min BUN/Creatinine Ratio 17.8 (6-22) Glucose 99 (70-100) mg/dL Calcium 9.6 (8.4-10.2) mg/dL Total Bilirubin 0.5 (0.2-1.3) mg/dL AST 23 (14-36) IU/L ALT 14 (<35) IU/L Alkaline Phosphatase 56 (38-126) U/L Total Protein 8.2 (6.3-8.2) g/dL Albumin 4.8 (3.5-5.0) g/dL Globulin 3.4 (1.7-4.1) g/dL Albumin/Globulin Ratio 1.4 (1.0-2.8) Lipase 90 (23-300) U/L Urine RBC None seen (0-5/HPF) Urine WBC None seen (0-5/HPF) Urine Bacteria None seen (None) Ur Culture Indicated? Cult not indicated Point of Care Testing Test Results Negative Urine Dip Bedside Urine Glucose Negative Bedside Urine Bilirubin - Negative Bedside Urine Ketone - Negative Urine Specific [place] 1.020 Bedside Urine Occult Blood +/- Bedside Urine pH 6.0 Bedside Urine Protein - Negative Bedside Urine Urobilinogen - Negative Bedside Urine Nitrite - Negative Bedside Urine Leukocytes - Negative Esterase Point of care testing: Point of Care Testing Test Results Negative Urine Dip Bedside Urine Glucose Negative Bedside Urine Bilirubin - Negative Bedside Urine Ketone - Negative Urine Specific [place] 1.020 Bedside Urine Occult Blood +/- Bedside Urine pH 6.0 Bedside Urine Protein - Negative Bedside Urine Urobilinogen - Negative Bedside Urine Nitrite - Negative Bedside Urine Leukocytes - Negative Esterase Imaging Data Acute abd series: Radiologist's Impression: FINDINGS:? ? Surgical changes and devices:? None.? ? Chest:? Lungs are clear.? Heart size is normal.? No pleural effusions.? No pneumoperitoneum.? ? Abdomen:? Bowel gas pattern is normal.? No suspicious calcifications.? ? Bones:? No suspicious bony lesions.? ? IMPRESSION:? ? 1. No acute intra-abdominal radiographic abnormality. ? ? Dictated by: Cornell Garcia M.D. on 08/15/2021 at 20:13 ? ? MDM Narrative Medical decision making narrative: Labs are reassuring with no evidence of acute infection, sepsis, urinary tract infection, pyelonephritis. CT scan of the abdomen is equally reassuring with no evidence of internal hernia, bowel obstruction, appendicitis, diverticulitis, free fluid in the pelvis. She does have moderate amount of gas throughout home but a fairly normal amount of stool. She notes that her last formed bowel movement was Saturday and she has been having loose stools with small bits of stool and no blood. At this point I suspect she has a viral enteritis is causing the mild diarrhea abdominal pain and general malaise. Without evidence of severe infection and ability to eat and drink she is safe for home discharge. Will give her a single to collect suppository to use at home to see if some mild rectal stimulation helps encourage some bowel motility to help decrease the overall volume of gas. Will also suggest simethicone. All of this is reviewed with patient, questions are answered. Clearly reviewed need to return to the emergency department should she get worse and at this time she is safe for home discharge Discharge Plan Departure Patient Disposition: Home Clinical Impression: Abdominal pain, Viral gastroenteritis Instructions: DI for Viral Gastroenteritis -- Adult Activity Restrictions/Additional Instructions: Thank you for coming in today I do think that it was absolutely appropriate to come to the emergency department with the degree of abdominal pain that your having. Fortunately, your workup in the emergency department was quite reassuring. There is no evidence of overwhelming infection, appendicitis, bowel obstruction or need for hospital admission or surgical intervention. I suspect you do have a virus that is causing the general malaise and fatigue as well as the moderate diarrhea and abdominal pain. I have given you a single nuchal axis suppository to use when she gets home. I am hoping that this will help stimulate your colon So that your able to move some of that gas and alleviate some of the pain from the distension. I would also recommend that you try some Gas-X/simethicone. This is an overkill the counter medication the comes in multiple forms that helps break big gas bubbles into smaller gas bubbles so they are easier to pass. If you develop fevers, worsening pain, any bloody stool or other new or concerning symptoms, it would be very appropriate to return to the emergency department for further evaluation Prescriptions: No Action ibuprofen 400 mg Tablet 400 mg PO Q6H 0RF aspirin [Aspirin Low Dose] 81 mg tablet,delayed release (DR/EC) 81 mg PO BID Qty: 60 0RF oxycodone-acetaminophen [Percocet] 5-325 mg tablet 1 tab PO Q4-6H PRN (Reason: pain) Qty: 30 0RF oxycodone-acetaminophen [Percocet] 5-325 mg tablet 1 tab PO Q4-6H PRN (Reason: pain) Qty: 10 0RF oxycodone-acetaminophen [Percocet] 5-325 mg tablet 1 tab PO Q6H PRN (Reason: pain) Qty: 10 0RF Referrals: Frida Johnson MD [Primary Care Provider] -
--- NOTE | 2021-08-15 21:41 | DI.CT.S_ITS ---
PROCEDURE: CT ABDOMEN PELVIS W CON INDICATIONS: severe RLQ pain TECHNIQUE: After the administration of IV contrast, axial sections were acquired from the lung bases to the pubic symphysis. Coronal and sagittal reformats were performed. For radiation dose reduction, the following was used: automated exposure control, adjustment of mA and/or kV according to patient size. COMPARISON: [facility], CT, CT ABDOMEN PELVIS W CON, 06/10/2020, 21:58. FINDINGS: Image quality: Excellent. Lung bases: There is minimal scarring within the inferior right middle lobe. There is a mild pectus excavatum. Heart: Heart is normal in size. ABDOMEN: Liver: No mass lesion. Gallbladder: Within normal limits without calcified gallstones. Biliary ducts: No biliary ductal dilatation. Pancreas: Unremarkable. Spleen: Normal in size. Adrenal Glands: No adrenal nodules. Kidneys and Ureters: No hydronephrosis. Stomach and Bowel: Stomach, small bowel loops, and colon are normal in caliber and wall thickness. No pericecal inflammatory changes to suggest appendicitis. Peritoneum: No abnormal intraperitoneal fluid. No free air. Ventral Wall: No hernia. Abdominal Nodes: No retroperitoneal or mesenteric adenopathy by size criteria. Vessels: Aorta and inferior vena cava are normal in size. PELVIS: Pelvic Organs: Uterus and ovaries appear within normal size limits. Bladder: Unremarkable. Pelvic Nodes: No enlarged lymph nodes. Miscellaneous: No inguinal hernias are seen. Bones: Visualized osseous structures demonstrate no suspicious focal lesions. IMPRESSION: 1. No definite acute intra-abdominal abnormality. Specifically, no evidence of appendicitis. Dictated by: Cornell Garcia M.D. on 08/15/2021 at 23:25 Approved by: Cornell Garcia M.D. on 08/15/2021 at 23:28
[2021-08-15] MEDS: SODIUM CHLORIDE 0.9% 1,000 ML 1000 ML IV (22:36)
[2021-08-15] MEDS: HYDROMORPHONE 0.5 MG INJ IV (22:36)
[2021-08-16] VITALS: BP 108/64; PULSE 60; O2SAT 99
[2021-08-16 00:30] VITALS: BP 104/62; PULSE 63; O2SAT 100
[2021-08-16] MEDS: BISACODYL 10 MG SUPP PR (00:53)
[2021-08-16 00:55] VITALS: PULSE 67; O2SAT 100
== END 2021-08-16 01:11 | disposition home or self-care (01) ==
PROVIDERS: Emergency Medicine; Emergency Provider Emergency Medicine; Family Provider Family Medicine; PCP Family Medicine
DX: R10.31 Right lower quadrant pain (principal); A08.4 Viral intestinal infection, unspecified; R11.2 Nausea with vomiting, unspecified; R19.7 Diarrhea, unspecified
CPT/HCPCS: 36415; 74022; 74177; 80053; 81003; 81015; 81025; 83690; 85025; 96361; 96374; 96375; 96376; 99284; J1170; J2405; Q9967

== ENCOUNTER 2022-04-21 16:39 | Emergency (ER) | payer OTHER, MEDICAID, SELFPAY ==
[2022-04-21] VITALS (12 sets, daily range): BP systolic 113–145; BP diastolic 67–91; PULSE 50–98; RESP 13–34; TEMP 36.6; O2SAT 91–100; BMI 19.7
--- NOTE | 2022-04-21 16:47 | DI.US.S_ITS ---
PROCEDURE: US PELVIC COMPLETE INDICATIONS: LEFT ADNEXAL PAIN TECHNIQUE: Real-time scanning was performed of the pelvic organs, with image documentation. Additional endovaginal scanning was necessary due to incomplete visualization of the adnexal and endometrial structures by transabdominal scanning. COMPARISON: [facility], US, US PELVIC COMPLETE, 06/10/2020, 20:44. FINDINGS: Uterus: Uterus is anteverted and normal in size at 8.9 x 4.8 x 4.4 cm. The myometrium is heterogenous. The endometrium measures 6 mm combined thickness. Ovaries: The right ovary measures 4.2 x 3.7 x 1.4 cm, with a calculated ovarian volume of 11.2 cc. The left ovary measures 3.3 x 2.9 x 1.4 cm, with a calculated ovarian volume of 7.0 cc. The ovaries have a normal sonographic appearance. Less than 12 follicles can be seen in each ovary. No adnexal masses are seen. Flow is seen in both ovaries. Other: No pathologic free abdominal or pelvic fluid. IMPRESSION: 1. No acute ultrasound abnormality of the pelvis. 2. No evidence of torsion. We strive to produce accurate, complete, and clear reports of imaging services. To assist us in improving patient care, this report was composed using standard report templates and voice recognition software. Therefore, it may contain abnormal punctuation, insertions and/or omissions. Occasional wrong-word or sound-alike substitutions may occur. Though we review the report and make efforts to correct it, we do recommend that the report be read carefully in proper context to recognize any text inaccuracies. Dictated by: Pablo Lira M.D. on 04/21/2022 at 18:25 Approved by: Pablo Lira M.D. on 04/21/2022 at 18:27
--- NOTE | 2022-04-21 16:53 | ED_ITS ---
HPI - General Adult <Jas Ragland DO - Last Filed: 04/22/22 07:09> General Chief complaint: Abdominal Pain Stated complaint: abd pain/dizzy/d/nausea x2 days Time Seen by Provider: 04/21/22 16:44 Source: patient Mode of arrival: Ambulatory Limitations: no limitations History of Present Illness HPI narrative: 41-year-old female who is here for evaluation of nausea and left-sided lower ab dominal pain and diarrhea. Patient states yesterday she started her menstrual cycle. She then had a sudden onset of left-sided abdominal pain after feeling a ?pop? she has had an ovarian cyst in the past that has ruptured. She is having vaginal bleeding. Is also having diarrhea. Is having nausea but no vomiting. No fevers. Has had her tubes tied and also her tubes removed in the past. No o ther abdominal surgeries. No fevers. This morning she felt very dizzy. Related Data Home Medications Medication Instructions Recorded Confirmed ibuprofen 400 mg tablet 400 mg PO Q6H 07/29/20 04/21/22 acetaminophen 325 mg tablet 650 mg PO 04/21/22 (Tylenol) Previous Rx's Medication Instructions Recorded oxycodone-acetaminophen 5 mg-325 1 tab PO Q6H PRN pain #10 tabs 04/21/22 mg tablet Allergies Allergy/AdvReac Type Severity Reaction Status Date / Time Sulfa (Sulfonamide Allergy Severe ANAPHYLACTI Verified 04/21/22 16:53 Antibiotics) C Review of Systems <Jas Ragland DO - Last Filed: 04/22/22 07:09> Constitutional Constitutional: Reports system reviewed and no additional complaints, except as documented Respiratory Respiratory: Reports system reviewed and no additional complaints, except as documented Gastrointestinal Gastrointestinal: Reports system reviewed and no additional complaints, except as documented Genitourinary Genitourinary: Reports system reviewed and no additional complaints, except as documented Integumentary/Breasts Skin/Breast: Reports system reviewed and no additional complaints, except as documented Hematologic/Lymphatic On Anticoagulants: No Patient History <Jas Ragland DO - Last Filed: 04/22/22 07:09> Medical History Chronic constipation History of pyelonephritis PTSD (post-traumatic stress disorder) Recurrent pyelonephritis Surgical History Status post dilation and curettage Status post tubal ligation Family History Brother Age: 29 Mental health problem Father Age: 64 Hypertension High cholesterol Mental health problem Grandmother Hypertension High cholesterol Mother Mental health problem Grandfather Heart disease Hypertension High cholesterol Stroke Grandmother Hypertension High cholesterol Social History household members: significant other Smoking Status: Current every day smoker Smoking Status: Current every day smoker alcohol intake frequency: a few times a week Substance Use Type: marijuana Exam <Jas Ragland DO - Last Filed: 04/22/22 07:09> Initial Vital Signs Initial Vital Signs: Vital Signs Temperature 97.8 F 04/21/22 16:50 Pulse Rate 98 H 04/21/22 16:50 Respiratory Rate 17 04/21/22 16:50 Blood Pressure 142/76 H 04/21/22 16:50 Pulse Oximetry 100 04/21/22 16:50 Oxygen Delivery Method 04/21/22 16:50 Const General: cooperative and comfortable HENMT Head: normal to inspection and normocephalic Resp Effort & Inspection: normal respiratory effort Auscultation: clear to auscultation bilaterally Cardio Rate: regular rate Rhythm: regular rhythm GI Inspection: normal to inspection and non-distended Palpation: soft, No firm, No guarding and tender (Left lower quadrant) Back/Spine/Pelvis Back: No CVA tenderness Skin General: no rashes or lesions noted Neuro General: patient alert, patient awake and moves all extremities Extrem General: capillary refill normal <Fabienne Whitfield MD - Last Filed: 04/21/22 20:34> Initial Vital Signs Initial Vital Signs: Vital Signs Temperature 97.8 F 04/21/22 16:50 Pulse Rate 98 H 04/21/22 16:50 Respiratory Rate 17 04/21/22 16:50 Blood Pressure 142/76 H 04/21/22 16:50 Pulse Oximetry 100 04/21/22 16:50 Oxygen Delivery Method 04/21/22 16:50 Course <Jas Ragland DO - Last Filed: 04/22/22 07:09> Orders Ordered: Discontinued Medications Hydromorphone HCl (Hydromorphone 0.5 Mg Inj) 0.5 mg IV NOW ONE Stop: 04/21/22 16:53 Last Admin: 04/21/22 17:02 Dose: 0.5 mg Documented By: NR Hydromorphone HCl (Hydromorphone 0.5 Mg Inj) 0.5 mg IV NOW ONE Stop: 04/21/22 17:47 Last Admin: 04/21/22 17:51 Dose: 0.5 mg Documented By: NR Sodium Chloride (Normal Saline 0.9%) 1,000 mls @ 1,000 mls/hr IV BOLUS ONE Stop: 04/21/22 17:51 Last Infusion: 04/21/22 17:51 Dose: 0 mls/hr Documented By: Admin: 04/21/22 17:02 Dose: 1,000 mls/hr Documented By: NR Ketorolac Tromethamine (Ketorolac 30 Mg/Ml Vial) 15 mg IV NOW ONE Stop: 04/21/22 18:21 Last Admin: 04/21/22 18:35 Dose: 15 mg Documented By: NR Ondansetron HCl (Ondansetron 4 Mg/2 Ml Inj) 4 mg IV NOW ONE Stop: 04/21/22 16:53 Last Admin: 04/21/22 17:02 Dose: 4 mg Documented By: NR Oxycodone/Acetaminophen (Oxycodone/Acetaminophen 5/325 Tablet) 1 tab PO NOW ONE Stop: 04/21/22 20:40 Last Admin: 04/21/22 20:42 Dose: 1 tab Documented By: RIC Vital Signs Vital signs: Vital Signs - 8 hr 04/21/22 16:50 04/21/22 16:59 04/21/22 17:00 Temperature 97.8 F Pulse Rate 98 H 75 77 Respiratory Rate 17 23 26 H Blood Pressure 142/76 H Pulse Oximetry 100 100 100 Oxygen Delivery Method Room Air 04/21/22 17:01 04/21/22 17:01 04/21/22 17:30 Temperature Pulse Rate 81 Respiratory Rate 25 H Blood Pressure 145/82 H 145/91 H Pulse Oximetry 100 Oxygen Delivery Method 04/21/22 17:30 04/21/22 18:17 04/21/22 18:30 Temperature Pulse Rate 60 61 61 Respiratory Rate 34 H Blood Pressure Pulse Oximetry 99 91 98 Oxygen Delivery Method <Fabienne L Laursen, MD - Last Filed: 04/21/22 20:34> Orders Ordered: Discontinued Medications Hydromorphone HCl (Hydromorphone 0.5 Mg Inj) 0.5 mg IV NOW ONE Stop: 04/21/22 16:53 Last Admin: 04/21/22 17:02 Dose: 0.5 mg Documented By: NR Hydromorphone HCl (Hydromorphone 0.5 Mg Inj) 0.5 mg IV NOW ONE Stop: 04/21/22 17:47 Last Admin: 04/21/22 17:51 Dose: 0.5 mg Documented By: NR Sodium Chloride (Normal Saline 0.9%) 1,000 mls @ 1,000 mls/hr IV BOLUS ONE Stop: 04/21/22 17:51 Last Infusion: 04/21/22 17:51 Dose: 0 mls/hr Documented By: Admin: 04/21/22 17:02 Dose: 1,000 mls/hr Documented By: NR Ketorolac Tromethamine (Ketorolac 30 Mg/Ml Vial) 15 mg IV NOW ONE Stop: 04/21/22 18:21 Last Admin: 04/21/22 18:35 Dose: 15 mg Documented By: NR Ondansetron HCl (Ondansetron 4 Mg/2 Ml Inj) 4 mg IV NOW ONE Stop: 04/21/22 16:53 Last Admin: 04/21/22 17:02 Dose: 4 mg Documented By: NR Oxycodone/Acetaminophen (Oxycodone/Acetaminophen 5/325 Tablet) 1 tab PO NOW ONE Stop: 04/21/22 20:40 Last Admin: 04/21/22 20:42 Dose: 1 tab Documented By: NR Vital Signs Vital signs: Vital Signs - 8 hr 04/21/22 16:50 04/21/22 16:59 04/21/22 17:00 Temperature 97.8 F Pulse Rate 98 H 75 77 Respiratory Rate 17 23 26 H Blood Pressure 142/76 H Pulse Oximetry 100 100 100 Oxygen Delivery Method Room Air 04/21/22 17:01 04/21/22 17:01 04/21/22 17:30 Temperature Pulse Rate 81 Respiratory Rate 25 H Blood Pressure 145/82 H 145/91 H Pulse Oximetry 100 Oxygen Delivery Method 04/21/22 17:30 04/21/22 18:17 04/21/22 18:30 Temperature Pulse Rate 60 61 61 Respiratory Rate 34 H Blood Pressure Pulse Oximetry 99 91 98 Oxygen Delivery Method Medical Decision Making <Jas Ragland DO - Last Filed: 04/22/22 07:09> Lab Data Lab results reviewed: Yes I reviewed the patient's lab results. 04/21/22 16:55 04/21/22 16:55 Labs: Lab Results 04/21/22 04/21/22 04/21/22 Range/Units 16:55 16:55 18:12 WBC 8.9 (4.5-11.0) X10^3/uL RBC 4.02 (4.0-5.2) X10^6/uL Hgb 13.0 (12.0-16.0) g/dL Hct 38.0 (36-46) % MCV 94.5 (80-100) fL MCH 32.3 (26-34) PG MCHC 34.1 (30-36) % RDW 12.7 (11.6-14.8) % Plt Count 326 (150-400) X10^3/uL Neut % (Auto) 66.5 (50-75) % Lymph % (Auto) 25.4 (25-40) % [place] % (Auto) 6.9 (3-14) % Eos % (Auto) 0.9 L (2-4) % Baso % (Auto) 0.3 (0-2) % Neut # (Auto) 5900 (9969-4202) /uL Lymph # (Auto) 2300 (7217-9201) /uL [place] # (Auto) 600 (0-900) /uL Eos # (Auto) 100 (0-450) /uL Baso # (Auto) 0 (0-100) /uL Sodium 140 (137-145) mmol/L Potassium 3.8 (3.4-5.1) mmol/L Chloride 104 (98-107) mmol/L Carbon Dioxide 24 (22-32) mmol/L BUN 10 (7-17) mg/dL Creatinine 0.56 (0.52-1.04) mg/dL Estimated GFR > 60 (>60) mL/min BUN/Creatinine Ratio 17.9 (6-22) Glucose 105 H (70-100) mg/dL Calcium 9.0 (8.4-10.2) mg/dL Total Bilirubin 0.8 (0.2-1.3) mg/dL AST 24 (14-36) IU/L ALT 19 (<35) IU/L Alkaline Phosphatase 55 (38-126) U/L Total Protein 7.8 (6.3-8.2) g/dL Albumin 4.5 (3.5-5.0) g/dL Globulin 3.3 (1.7-4.1) g/dL Albumin/Globulin Ratio 1.4 (1.0-2.8) Lipase 125 (23-300) U/L Urine RBC 1-5/hpf (0-5/HPF) Urine WBC 1-5/hpf (0-5/HPF) Ur Squamous Epith Cells 1-5 /hpf (0-5/HPF) Urine Bacteria None seen (None) Ur Culture Indicated? Cult not indicated Point of Care Testing Test Results Negative Urine Dip Bedside Urine Glucose Negative Bedside Urine Bilirubin - Negative Bedside Urine Ketone - Negative Urine Specific [place] 1.015 Bedside Urine Occult Blood + Bedside Urine pH 6 Bedside Urine Protein - Negative Bedside Urine Urobilinogen - Negative Bedside Urine Nitrite - Negative Bedside Urine Leukocytes - Negative Esterase Point of care testing: Point of Care Testing Test Results Negative Urine Dip Bedside Urine Glucose Negative Bedside Urine Bilirubin - Negative Bedside Urine Ketone - Negative Urine Specific [place] 1.015 Bedside Urine Occult Blood + Bedside Urine pH 6 Bedside Urine Protein - Negative Bedside Urine Urobilinogen - Negative Bedside Urine Nitrite - Negative Bedside Urine Leukocytes - Negative Esterase ECG Data Attestation: I personally reviewed and interpreted this ECG as follows: Interpretation: Sinus rhythm Ventricular rate is 73 Normal QRS Normal QTC No ST T wave changes MDM Narrative Medical decision making narrative: Patient is having fairly significant left lower quadrant/left adnexal pain. She is on her menstrual cycle so was having vaginal bleeding. No urinary symptoms. Her labs are unremarkable. She has had an ovarian cyst in the past. Ultrasound ordered for evaluation of potential ovarian pathology. Medications for symptom control. Considered ovarian pathology such as torsion, cyst, ectopic, UTI, pyelo, intra-abdominal surgical pathology and other potential etiologies. I did inform the patient that if her ultrasound is unremarkable we very well may need to obtain a CT scan for further evaluation. She is no CVA tenderness. Ultrasound pending. Care turned over to Dr. Whitfield to follow-up on ultrasound and disposition. <Fabienne Whitfield MD - Last Filed: 04/21/22 20:34> Lab Data Labs: Lab Results 04/21/22 04/21/22 04/21/22 Range/Units 16:55 16:55 18:12 WBC 8.9 (4.5-11.0) X10^3/uL RBC 4.02 (4.0-5.2) X10^6/uL Hgb 13.0 (12.0-16.0) g/dL Hct 38.0 (36-46) % MCV 94.5 (80-100) fL MCH 32.3 (26-34) PG MCHC 34.1 (30-36) % RDW 12.7 (11.6-14.8) % Plt Count 326 (150-400) X10^3/uL Neut % (Auto) 66.5 (50-75) % Lymph % (Auto) 25.4 (25-40) % [place] % (Auto) 6.9 (3-14) % Eos % (Auto) 0.9 L (2-4) % Baso % (Auto) 0.3 (0-2) % Neut # (Auto) 5900 (2448-1984) /uL Lymph # (Auto) 2300 (7406-9322) /uL [place] # (Auto) 600 (0-900) /uL Eos # (Auto) 100 (0-450) /uL Baso # (Auto) 0 (0-100) /uL Sodium 140 (137-145) mmol/L Potassium 3.8 (3.4-5.1) mmol/L Chloride 104 (98-107) mmol/L Carbon Dioxide 24 (22-32) mmol/L BUN 10 (7-17) mg/dL Creatinine 0.56 (0.52-1.04) mg/dL Estimated GFR > 60 (>60) mL/min BUN/Creatinine Ratio 17.9 (6-22) Glucose 105 H (70-100) mg/dL Calcium 9.0 (8.4-10.2) mg/dL Total Bilirubin 0.8 (0.2-1.3) mg/dL AST 24 (14-36) IU/L ALT 19 (<35) IU/L Alkaline Phosphatase 55 (38-126) U/L Total Protein 7.8 (6.3-8.2) g/dL Albumin 4.5 (3.5-5.0) g/dL Globulin 3.3 (1.7-4.1) g/dL Albumin/Globulin Ratio 1.4 (1.0-2.8) Lipase 125 (23-300) U/L Urine RBC 1-5/hpf (0-5/HPF) Urine WBC 1-5/hpf (0-5/HPF) Ur Squamous Epith Cells 1-5 /hpf (0-5/HPF) Urine Bacteria None seen (None) Ur Culture Indicated? Cult not indicated Point of Care Testing Test Results Negative Urine Dip Bedside Urine Glucose Negative Bedside Urine Bilirubin - Negative Bedside Urine Ketone - Negative Urine Specific [place] 1.015 Bedside Urine Occult Blood + Bedside Urine pH 6 Bedside Urine Protein - Negative Bedside Urine Urobilinogen - Negative Bedside Urine Nitrite - Negative Bedside Urine Leukocytes - Negative Esterase Point of care testing: Point of Care Testing Test Results Negative Urine Dip Bedside Urine Glucose Negative Bedside Urine Bilirubin - Negative Bedside Urine Ketone - Negative Urine Specific [place] 1.015 Bedside Urine Occult Blood + Bedside Urine pH 6 Bedside Urine Protein - Negative Bedside Urine Urobilinogen - Negative Bedside Urine Nitrite - Negative Bedside Urine Leukocytes - Negative Esterase Imaging Data Pelvic ultrasound : Radiologist's Impression: FINDINGS:? ?? Uterus:? Uterus is anteverted and normal in size at 8.9 x 4.8 x 4.4 cm. The myometrium is heterogenous. ? The endometrium measures 6 mm combined thickness.? ? Ovaries:? The right ovary measures 4.2 x 3.7 x 1.4 cm, with a calculated ovarian volume of 11.2 cc. The left ovary measures 3.3 x 2.9 x 1.4 cm, with a calculated ovarian volume of 7.0 cc. The ovaries have a normal sonographic appearance. Less than 12 follicles can be seen in each ovary.? No adnexal masses are seen.? Flow is seen in both ovaries. ? Other:? No pathologic free abdominal or pelvic fluid. ? ? IMPRESSION:? 1. No acute ultrasound abnormality of the pelvis. 2. No evidence of torsion. ? We strive to produce accurate, complete, and clear reports of imaging services. To assist us in improving patient care, this report was composed using standard report templates and voice recognition software. Therefore, it may contain abnormal punctuation, insertions and/or omissions. Occasional wrong-word or sound-alike substitutions may occur. Though we review the report and make efforts to correct it, we do recommend that the report be read carefully in proper context to recognize any text inaccurac ies. ? ? Dictated by: Pablo Lira M.D. on 04/21/2022 at 18:25 ? ? CT scan - abdomen/pelvis: Radiologist's Impression: FINDINGS: Image quality:? Excellent.? ? Lung bases:? Lung bases are clear.? Heart size is normal. ? Solid organs:? Liver: The liver has no mass or intrahepatic biliary ductal dilatation. The portal vein and hepatic veins are patent. Biliary: The gallbladder has no gallstones, pericholecystic fluid, gallbladder wall thickening, or surrounding inflammatory change. Pancreas: The pancreas has no mass or ductal dilatation. There is no surrounding inflammation. Spleen: Normal size. There are no masses. Adrenals: No hypertrophy or nodules. Kidneys: No obstructive calculus or hydronephrosis.? No solid mass. No cystic mass. ? Peritoneum and bowel:? The distal esophagus and stomach are normal.? The small bowel has a normal caliber and appearance. The terminal ileum is normal. The large bowel has a normal caliber and appearance.? The appendix is normal. No free fluid or air.? ? Nodes and vessels:? No retroperitoneal or mesenteric adenopathy by size criteria.? Aorta and inferior vena cava are normal in size.? ? Miscellaneous:? No abdominal wall mass or hernia. ? PELVIS:? Genitourinary:? The bladder has no wall thickening or mass. No bladder calcifications. ? Bones:? No suspicious bony lesions.? No vertebral body compression fractures.? ? IMPRESSION:? No acute abdominal or pelvic abnormality.? ? ? Dictated by: Pablo Lira M.D. on 04/21/2022 at 19:00? MDM Narrative Medical decision making narrative: Patient is having fairly significant left lower quadrant/left adnexal pain. She is on her menstrual cycle so was having vaginal bleeding. No urinary symptoms. Her labs are unremarkable. She has had an ovarian cyst in the past. Ultrasound ordered for evaluation of potential ovarian pathology. Medications for symptom control. Considered ovarian pathology such as torsion, cyst, ectopic, UTI, pyelo, intra-abdominal surgical pathology and other potential etiologies. I did inform the patient that if her ultrasound is unremarkable we very well may need to obtain a CT scan for further evaluation. She is no CVA tenderness. Ultrasound pending. Care turned over to Dr. Whitfield to follow-up on ultrasound and disposition. 8pm Care accepted in transfer. 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 Pertinent findings: CBC is unremarkable with no leukocytosis or significant anemia Chemistries are reassuring Urine does not suggest infection Imaging studies independently reviewed: Pelvic ultrasound has no acute abnormalities and good blood flow to both ovaries CT scan of the abdomen and pelvis shows no acute pathology Treatments: IV fluids, parenteral Zofran, Dilaudid and Toradol. Oral Percocet Discussion: Patient is re-evaluated and reviewed all labs and imaging studies. At this point she is complaining that the pain is now radiating down into her upper thighs bilaterally. She does not have a surgical abdomen. Explained to her the absence of findings including ovarian torsion, any intra-abdominal infection or obstruction, no significant free pelvic fluid to suggest a larger complicated cyst rupture. No spinal abnormalities to cause radiating pain. At this point I think the best explanation is severe dysmenorrhea with menometrorrhagia. She has been alternating ibuprofen and Tylenol. To this will add couple of days worth of Percocet to help with the severe pain. Suggested that she follow-up again with gynecology to discuss additional options. Disposition: see below, along with detailed discharge instructions that have been reviewed with patient as well as indications for ED re-evaluation and additional outpatient follow up Discharge Plan Departure Patient Disposition: Home Clinical Impression: Dysmenorrhea, Menometrorrhagia Instructions: DI for Dysmenorrhea Activity Restrictions/Additional Instructions: Thank you for coming in today Fortunately, it did not find any life-threatening abnormalities or reasons for surgery today. I do not see any evidence of an acutely ruptured ovarian cyst, ovarian torsion, infection in your abdomen of any type, kidney problems bladder problems or other diagnoses that need further workup or hospitalization. At this time I think this is incredibly heavy menstrual cramps. Using 400 mg of ibuprofen (2 [id number] pills) and 1 Tylenol every 6 hours can be very helpful in controlling pain. For severe pain you can use 400 mg of ibuprofen and 1 Percocet. Prescription for Percocet was electronically transmitted to [facility] You do need to follow-up with your therapist's assistant to discuss your heavy and painful bleeding. If you find that you are getting worse or develop any new symptoms, please feel free to return to the emergency department for further evaluation. Prescriptions: New oxycodone-acetaminophen 5-325 mg tablet 1 tab PO Q6H PRN (Reason: pain) Qty: 10 0RF No Action ibuprofen 400 mg Tablet 400 mg PO Q6H acetaminophen [Tylenol] 325 mg Tablet 650 mg PO Referrals: Frida Johnson MD [Primary Care Provider] - Stand Alone Forms: Patient Portal/API
[2022-04-21 16:59] LABS: Add Manual Diff / Slide Review NO; Basophils Absolute Auto 0 /uL (0-100); Basophils Percent Auto 0.3 % (0-2); Eosinophils Absolute Auto 100 /uL (0-450); Eosinophils Percent Auto 0.9 % (2-4); Lymphocytes Absolute Auto 2300 /uL (1100-4500); Lymphocytes Percent Auto 25.4 % (25-40); Mean Corpuscular HGB Conc 34.1 % (30-36); Mean Corpuscular Hemoglobin 32.3 PG (26-34); Mean Corpuscular Volume 94.5 fL (80-100); Monocytes Absolute Auto 600 /uL (0-900); Monocytes Percent Auto 6.9 % (3-14); Neutrophils Absolute Auto 5900 /uL (1500-7000); Neutrophils Percent Auto 66.5 % (50-75); Platelet Count 326 X10^3/uL (150-400); Red Blood Cell Count 4.02 X10^6/uL (4.0-5.2); Red Cell Distribution Width 12.7 % (11.6-14.8); White Blood Cell Count 8.9 X10^3/uL (4.5-11.0)
[2022-04-21] MEDS: HYDROMORPHONE 0.5 MG INJ IV ×2 (17:02→17:51)
[2022-04-21] MEDS: ONDANSETRON 4 MG/2 ML INJ IV (17:02)
[2022-04-21] MEDS: SODIUM CHLORIDE 0.9% 1,000 ML 1000 ML IV (17:02)
[2022-04-21 17:11] LABS: Alanine Aminotransferase 19 IU/L (<35); Albumin 4.5 g/dL (3.5-5.0); Albumin Globulin Ratio 1.4 (1.0-2.8); Alkaline Phosphatase 55 U/L (38-126); Aspartate Aminotransferase 24 IU/L (14-36); BUN Creatinine Ratio 17.9 (6-22); Bilirubin Total 0.8 mg/dL (0.2-1.3); Blood Urea Nitrogen 10 mg/dL (7-17); Carbon Dioxide 24 mmol/L (22-32); Chloride 104 mmol/L (98-107); Estimated Glomerular Filt Rate > 60 mL/min (>60); Globulin 3.3 g/dL (1.7-4.1); Glucose 105 mg/dL (70-100); HEMOLYSIS < 15 (0-50); Lipase 125 U/L (23-300); Potassium 3.8 mmol/L (3.4-5.1); Sodium 140 mmol/L (137-145); Total Protein 7.8 g/dL (6.3-8.2)
--- NOTE | 2022-04-21 18:17 | DI.CT.S_ITS ---
PROCEDURE: CT ABDOMEN PELVIS W CON INDICATIONS: LLQ pain, neg us TECHNIQUE: After the administration of oral and intravenous contrast, axial sections were acquired from the lung bases to the pubic symphysis. Coronal and sagittal reformats were performed. For radiation dose reduction, the following was used: automated exposure control, adjustment of mA and/or kV according to patient size. COMPARISON:[facility], CT, CT ABDOMEN PELVIS W CON, 08/15/2021, 22:16. FINDINGS: Image quality: Excellent. Lung bases: Lung bases are clear. Heart size is normal. Solid organs: Liver: The liver has no mass or intrahepatic biliary ductal dilatation. The portal vein and hepatic veins are patent. Biliary: The gallbladder has no gallstones, pericholecystic fluid, gallbladder wall thickening, or surrounding inflammatory change. Pancreas: The pancreas has no mass or ductal dilatation. There is no surrounding inflammation. Spleen: Normal size. There are no masses. Adrenals: No hypertrophy or nodules. Kidneys: No obstructive calculus or hydronephrosis. No solid mass. No cystic mass. Peritoneum and bowel: The distal esophagus and stomach are normal. The small bowel has a normal caliber and appearance. The terminal ileum is normal. The large bowel has a normal caliber and appearance. The appendix is normal. No free fluid or air. Nodes and vessels: No retroperitoneal or mesenteric adenopathy by size criteria. Aorta and inferior vena cava are normal in size. Miscellaneous: No abdominal wall mass or hernia. PELVIS: Genitourinary: The bladder has no wall thickening or mass. No bladder calcifications. Bones: No suspicious bony lesions. No vertebral body compression fractures. IMPRESSION: No acute abdominal or pelvic abnormality. Dictated by: Pablo Lira M.D. on 04/21/2022 at 19:00 Approved by: Pablo Lira M.D. on 04/21/2022 at 19:06
[2022-04-21 18:21] LABS: Bacteria Urine None Seen; Culture Indicated Urine Cult Not Indicated; RBC Urine 1-5/HPF (0-5/HPF); Squamous Epithelial Cell Urine 1-5 /HPF (0-5/HPF); WBC Urine 1-5/HPF (0-5/HPF)
--- NOTE | 2022-04-21 18:21 | PC.NURSE ---
pt given second dose of hydromorphone prior to ultrasound. pt states she was feeling a little better but the transvaginal US then shot her pain back up to a 7-8/10
[2022-04-21] MEDS: KETOROLAC 30 MG/ML VIAL 15 MG IV (18:35)
[2022-04-21] MEDS: OXYCODONE/ACETAMINOPHEN 5/325 TABLET 1 TAB PO (20:42)
== END 2022-04-21 20:44 | disposition home or self-care (01) ==
PROVIDERS: Emergency Medicine; Emergency Provider Emergency Medicine; Family Provider Family Medicine; PCP Family Medicine
DX: N94.6 Dysmenorrhea, unspecified (principal); N92.1 Excessive and frequent menstruation with irregular cycle
CPT/HCPCS: 36415; 74177; 76830; 76856; 80053; 81003; 81015; 81025; 83690; 85025; 93005; 93010; 93975; 96361; 96374; 96375; 96376; 99284; 99285; J1170; J1885; J2405; Q9967

== ENCOUNTER 2023-02-09 22:42 | Emergency (ER) | payer SELFPAY ==
[2023-02-09 22:55] VITALS: BP 123/81; PULSE 95; RESP 18; TEMP 36.9; O2SAT 99; BMI 20.2
[2023-02-09] MEDS: ONDANSETRON 4 MG ODT SL (23:02)
[2023-02-09 23:21] LABS: Bacteria Urine Many (>30); RBC Urine 5-10/HPF (0-5/HPF); Squamous Epithelial Cell Urine 1-5 /HPF (0-5/HPF); WBC Urine >100/HPF (0-5/HPF)
[2023-02-09 23:22] LABS: Culture Indicated Urine Specimen Cultured; Mucus Urine 1+ (Negative)
--- NOTE | 2023-02-09 23:33 | ED_ITS ---
HPI - General Adult General Chief complaint: Urogenital-Female Stated complaint: kidney infection Time Seen by Provider: 02/09/23 22:51 Source: patient Mode of arrival: Ambulatory History of Present Illness HPI narrative: 42-year-old female here for evaluation of dysuria, frequency, hesitancy, dribbling, nausea and vomiting and left flank pain. She does get frequent urinary tract infections. She is allergic to sulfa. She states she is been on multiple different antibiotics in the past. She does not remember what specific antibiotic has worked for her. She is also been ?septic? because of kidney infections. She did take Zofran prior to arrival. Related Data Home Medications Medication Instructions Recorded Confirmed ibuprofen 400 mg tablet 400 mg PO Q6H 07/29/20 04/21/22 acetaminophen 325 mg tablet 650 mg PO 04/21/22 (Tylenol) Previous Rx's Medication Instructions Recorded oxycodone-acetaminophen 5 mg-325 1 tab PO Q6H PRN pain #10 tabs 04/21/22 mg tablet ciprofloxacin HCl 500 mg tablet 500 mg PO BID 7 days #14 tabs 02/09/23 (Cipro) ondansetron 4 mg disintegrating 4 mg PO Q6H PRN nausea and 02/09/23 tablet vomiting #7 tabs Allergies Allergy/AdvReac Type Severity Reaction Status Date / Time Sulfa (Sulfonamide Allergy Severe ANAPHYLACTI Verified 04/21/22 16:53 Antibiotics) C Review of Systems Constitutional Constitutional: Reports system reviewed and no additional complaints, except as documented Gastrointestinal Gastrointestinal: Reports system reviewed and no additional complaints, except as documented Genitourinary Genitourinary: Reports system reviewed and no additional complaints, except as documented Integumentary/Breasts Skin/Breast: Reports system reviewed and no additional complaints, except as documented Patient History Medical History History of pyelonephritis PTSD (post-traumatic stress disorder) Chronic constipation Recurrent pyelonephritis Surgical History Status post dilation and curettage Status post tubal ligation Family History Brother Age: 30 Mental health problem Father Age: 65 Hypertension High cholesterol Mental health problem Grandmother Hypertension High cholesterol Mother Mental health problem Grandfather Heart disease Hypertension High cholesterol Stroke Grandmother Hypertension High cholesterol Social History household members: significant other Smoking Status: Current every day smoker Smoking Status: Current every day smoker tobacco type: cigarettes alcohol intake frequency: holidays/special occasions only Substance Use Type: marijuana Exam Initial Vital Signs Initial Vital Signs: Vital Signs Temperature 98.5 F 02/09/23 22:55 Pulse Rate 95 H 02/09/23 22:55 Respiratory Rate 18 02/09/23 22:55 Blood Pressure 123/81 02/09/23 22:55 Pulse Oximetry 99 02/09/23 22:55 Oxygen Delivery Method Room Air 02/09/23 22:55 HENMT Head: normal to inspection and normocephalic GI Inspection: non-distended Back/Spine/Pelvis Back: CVA tenderness left Skin General: no rashes or lesions noted Neuro General: patient alert, patient awake and moves all extremities Course Orders Ordered: ED Orders 02/09/23 23:00 Urine Culture Stat Urine Microscopic Stat Ondansetron HCl (Ondansetron 4 Mg Odt) 4 mg SL NOW PRN PRN Reason: Nausea And Vomiting Last Admin: 02/09/23 23:02 Dose: 4 mg Documented By: MALINA Discontinued Medications Ciprofloxacin (Ciprofloxacin 250 Mg Tablet) 500 mg PO NOW ONE Stop: 02/09/23 23:35 Last Admin: 02/09/23 23:44 Dose: 500 mg Documented By: MALINA Vital Signs Vital signs: Vital Signs - 8 hr 02/09/23 22:55 Temperature 98.5 F Pulse Rate 95 H Respiratory Rate 18 Blood Pressure 123/81 Pulse Oximetry 99 Oxygen Delivery Method Room Air Medical Decision Making Medical Records Medical records reviewed: Yes I reviewed the patient's medical records. Lab Data Lab results reviewed: Yes I reviewed the patient's lab results. Labs: Lab Results 02/09/23 Range/Units 23:00 Urine RBC 5-10/hpf H (0-5/HPF) Urine WBC >100/hpf H (0-5/HPF) Ur Squamous Epith Cells 1-5 /hpf (0-5/HPF) Urine Bacteria Many (>30) H (None) Urine Mucus 1+ H (Negative) Ur Culture Indicated? Specimen cultured Urine Dip Bedside Urine Glucose Negative Bedside Urine Bilirubin - Negative Bedside Urine Ketone - Negative Urine Specific [place] 1.025 Bedside Urine Occult Blood +++ Bedside Urine pH 6 Bedside Urine Protein + 30 Bedside Urine Urobilinogen - Negative Bedside Urine Nitrite + Positive Bedside Urine Leukocytes +/- 15 Esterase Point of care testing: Urine Dip Bedside Urine Glucose Negative Bedside Urine Bilirubin - Negative Bedside Urine Ketone - Negative Urine Specific [place] 1.025 Bedside Urine Occult Blood +++ Bedside Urine pH 6 Bedside Urine Protein + 30 Bedside Urine Urobilinogen - Negative Bedside Urine Nitrite + Positive Bedside Urine Leukocytes +/- 15 Esterase MDM Narrative Medical decision making narrative: Prior urine culture shows an E coli that was pansensitive. She is allergic to Bactrim. She tolerated oral antibiotics here in the ER. She does have findings that would be consistent with a UTI/pyelonephritis. There was no indication for admission to the hospital. She is afebrile. Not tachycardic. Tolerating oral intake. Does require antibiotics and was given 1st dose here in the ER and a prescription was sent to the pharmacy of her choice. She was given return precautions. Discharge Plan Departure Patient Disposition: Home Clinical Impression: Pyelonephritis Instructions: Kidney Infection Activity Restrictions/Additional Instructions: I do recommend that you take the antibiotics as directed. You can take Tylenol/ibuprofen for any fevers. Be sure that your increasing your fluid intake. Return to the emergency department for new or worsening symptoms specifically not able to take your antibiotics. Prescriptions: New ciprofloxacin HCl [Cipro] 500 mg tablet 500 mg PO BID 7 Days Qty: 14 0RF ondansetron 4 mg tablet,disintegrating 4 mg PO Q6H PRN (Reason: nausea and vomiting) Qty: 7 0RF No Action ibuprofen 400 mg Tablet 400 mg PO Q6H acetaminophen [Tylenol] 325 mg Tablet 650 mg PO oxycodone-acetaminophen 5-325 mg tablet 1 tab PO Q6H PRN (Reason: pain) Qty: 10 0RF Referrals: Frida Johnson MD [Primary Care Provider] - Stand Alone Forms: Patient Portal/API
[2023-02-09] MEDS: CIPROFLOXACIN 250 MG TABLET 500 MG PO (23:44)
== END 2023-02-09 23:58 | disposition home or self-care (01) ==
PROVIDERS: Emergency Provider Emergency Medicine; Family Provider Family Medicine; PCP Family Medicine
DX: N12 Tubulo-interstitial nephritis, not specified as acute or chronic (principal)
CPT/HCPCS: 81003; 81015; 87077; 87086; 87186; 99283

== ENCOUNTER 2023-02-19 15:39 | Emergency (ER) | payer SELFPAY ==
[2023-02-19] VITALS (10 sets, daily range): BP systolic 115–124; BP diastolic 64–74; PULSE 63–110; RESP 20; TEMP 36.7–36.9; O2SAT 94–100; BMI 20.2
[2023-02-19 16:09] LABS: Add Manual Diff / Slide Review NO; Basophils Absolute Auto 100 /uL (0-100); Basophils Percent Auto 0.5 % (0-2); Eosinophils Absolute Auto 200 /uL (0-450); Eosinophils Percent Auto 1.4 % (2-4); Hematocrit 35.2 % (36-46); Hemoglobin 12.1 g/dL (12.0-16.0); Lymphocytes Absolute Auto 2000 /uL (1100-4500); Lymphocytes Percent Auto 18.7 % (25-40); Mean Corpuscular HGB Conc 34.5 % (30-36); Mean Corpuscular Hemoglobin 33.2 PG (26-34); Mean Corpuscular Volume 96.1 fL (80-100); Monocytes Absolute Auto 600 /uL (0-900); Monocytes Percent Auto 5.5 % (3-14); Neutrophils Absolute Auto 8000 /uL (1500-7000); Neutrophils Percent Auto 73.9 % (50-75); Platelet Count 333 X10^3/uL (150-400); Red Blood Cell Count 3.66 X10^6/uL (4.0-5.2); Red Cell Distribution Width 13.2 % (11.6-14.8); White Blood Cell Count 10.8 X10^3/uL (4.5-11.0)
[2023-02-19] MEDS: SODIUM CHLORIDE 0.9% 1,000 ML 1000 ML IV (16:13)
[2023-02-19] MEDS: KETOROLAC 30 MG/ML VIAL 15 MG IV (16:13)
[2023-02-19 16:15] LABS: Appearance Urine UA CLOUDY; Bilirubin Urine UA 1+ (NEGATIVE); Color Urine UA YELLOW; Glucose Urine UA TRACE g/dL (Negative); Ketones Urine UA TRACE (NEGATIVE); Leukocyte Esterase Urine UA TRACE (NEGATIVE); Nitrite Urine UA POSITIVE (Negative); Occult Blood Urine UA 3+ (Negative); Protein Urine UA 3+ (Negative)
[2023-02-19 16:15] LABS: Prothrombin Time 10.9 SECONDS (9.4-12.5)
[2023-02-19 16:16] LABS: pH Urine UA 7.5 (4.5-8.0)
[2023-02-19 16:18] LABS: PTT Partial Thromboplastin Tim 25 SECONDS (25.1-36.5)
[2023-02-19 16:21] LABS: Alanine Aminotransferase 16 IU/L (<35); Albumin Globulin Ratio 1.3 (1.0-2.8); Alkaline Phosphatase 40 U/L (38-126); Aspartate Aminotransferase 22 IU/L (14-36); BUN Creatinine Ratio 20.7 (6-22); Bilirubin Total 0.7 mg/dL (0.2-1.3); Blood Urea Nitrogen 12 mg/dL (7-17); Carbon Dioxide 26 mmol/L (22-32); Chloride 109 mmol/L (98-107); Estimated Glomerular Filt Rate > 60 mL/min (>60); Glucose 102 mg/dL (70-100); HEMOLYSIS < 15 (0-50); Lactate (Lactic Acid) 1.2 mmol/L (0.7-2.1); Lipase 80 U/L (23-300); Potassium 4.2 mmol/L (3.4-5.1); Sodium 138 mmol/L (137-145)
[2023-02-19 16:24] LABS: Bacteria Urine Few (2-10); Culture Indicated Urine Specimen Cultured; RBC Urine 30-100/HPF (0-5/HPF); Squamous Epithelial Cell Urine 1-5 /HPF (0-5/HPF); WBC Urine 1-5/HPF (0-5/HPF)
[2023-02-19 16:36] LABS: Procalcitonin < 0.03 ng/mL (<0.5)
--- NOTE | 2023-02-19 17:15 | PC.NURSE ---
Pt came to the Ed today because she has been experiencing worsening kidney infection sx. Pt was seen in ed previouslyand given a 5 day course of antibiotics. pt has since finished the abx and sx have been getting worse. Pt describes pain as sharp and throbbing and a 10/10.
--- NOTE | 2023-02-19 17:53 | DI.US.S_ITS ---
PROCEDURE: US RENAL COMPLETE INDICATIONS: FLANK PAIN TECHNIQUE: Real-time scanning was performed of the kidneys and bladder, with image documentation. COMPARISON: None. FINDINGS: Kidneys: Right kidney measures 10.7 cm long; left kidney measures 12.7 cm long. Right renal cortical thickness is 1.3 cm; left renal cortical thickness is 2.1 cm. Renal cortical echotexture is normal. Minimal prominence of the right renal pelvis. No nephrolithiasis. No suspicious solid mass lesions. Bladder: Pre-void bladder volume is 1336 mL. Post-void residual is 9 mL. Pre-void images demonstrate no intraluminal masses or stones. On pre-void images, bilateral ureteral jets are noted with color Doppler interrogation. (Of note, ureteral jets may not be detectable in up to 25% of cases due to insufficient differences in specific gravity between ureteral and bladder urine). Miscellaneous: No free pelvic fluid. IMPRESSION: No visualized stone. Minimal prominence of the right renal pelvis. Dictated by: Lillie Calvo M.D. on 02/19/2023 at 19:04 Approved by: Lillie Calvo M.D. on 02/19/2023 at 19:05
[2023-02-19] MEDS: ACETAMINOPHEN IV 1,000 MG/100 ML VIAL 400 MG IV (17:57)
--- NOTE | 2023-02-19 18:17 | DI.CT.S_ITS ---
PROCEDURE: CT ABDOMEN PELVIS W CON INDICATIONS: INTRACTABLE FLANK PAIN TECHNIQUE: After the administration of oral and IV contrast, axial sections were acquired from the lung bases to the pubic symphysis. Coronal and sagittal reformats were performed. For radiation dose reduction, the following was used: automated exposure control, adjustment of mA and/or kV according to patient size. COMPARISON: [facility], CT, CT ABDOMEN PELVIS W CON, 04/21/2022, 18:23. FINDINGS: Image quality: Excellent. Lung bases: Unremarkable. Heart: No significant findings. ABDOMEN: Liver: Liver is enlarged measuring 20.1 cm with steatosis. Gallbladder: No radiopaque gallstones or wall thickening. Biliary ducts: No biliary dilation. Pancreas: No ductal dilation. Spleen: Size is within normal limits. Adrenal Glands: No adrenal nodules. Kidneys and Ureters: No hydronephrosis. No solid mass. No complex renal cystic lesion which requires follow up. Stomach and Bowel: No obstruction. There is mild appearance of focal thickening within the descending colon with very minimal pericolonic inflammatory change. Peritoneum: No abnormal intraperitoneal fluid. No free air. Ventral Wall: No hernia. Abdominal Nodes: No retroperitoneal or mesenteric adenopathy by size criteria. Vessels: Aorta and inferior vena cava are normal in size. PELVIS: Pelvic Organs: Unremarkable. Bladder: Bladder wall is irregularly thickened with enhancement. Pelvic Nodes: No enlarged lymph nodes. Miscellaneous: No inguinal hernias are seen. Bones: Unremarkable. IMPRESSION: Thickened irregular bladder wall thickening with enhancement. Overall appearance is suggestive of infection or inflammation. Recommend correlation with laboratory values and interval follow-up after appropriate therapy to document resolution and exclude presence of more aggressive underlying etiology such as malignancy. Focal loop of descending colon with thickening and very minimal pericolonic stranding. Very early focal colitis cannot be definitively excluded. Dictated by: Lillie Calvo M.D. on 02/19/2023 at 18:58 Approved by: Lillie Calvo M.D. on 02/19/2023 at 19:04
--- NOTE | 2023-02-19 18:19 | ED_ITS ---
HPI - Female Genitourinary General Chief complaint: Urogenital-Female Stated complaint: states kidney infection, abx not working Time Seen by Provider: 02/19/23 15:52 Source: patient Mode of arrival: Ambulatory History of Present Illness HPI Narrative: 42-year-old female with history of recurrent urinary tract infections (states small ureters per Urology at [facility]) presents by private vehicle from home for recurrent flank pain and burning with urination as well as fever up to 101 F earlier this morning. Patient was seen on 02/09 and diagnosed with pyelonephritis. She was discharged with ciprofloxacin, however shortly afterwards her culture showed indeterminate sensitivity to ciprofloxacin and the medication was changed to cefpodoxime. Patient states that she completed a 7 day course of this medication, but has never felt better and continues to have burning with urination. She did take Pyridium earlier this morning. Related Data Home Medications Medication Instructions Recorded Confirmed ibuprofen 400 mg tablet 400 mg PO Q6H 07/29/20 04/21/22 acetaminophen 325 mg tablet 650 mg PO 04/21/22 (Tylenol) Previous Rx's Medication Instructions Recorded oxycodone-acetaminophen 5 mg-325 1 tab PO Q6H PRN pain #10 tabs 04/21/22 mg tablet ondansetron 4 mg disintegrating 4 mg PO Q6H PRN nausea and 02/09/23 tablet vomiting #7 tabs cefpodoxime 200 mg tablet 200 mg PO Q12H #28 tabs 02/19/23 hydrocodone 5 mg-acetaminophen 325 1 tab PO Q6H PRN pain #10 tabs 02/19/23 mg tablet Allergies Allergy/AdvReac Type Severity Reaction Status Date / Time Sulfa (Sulfonamide Allergy Severe ANAPHYLACTI Verified 04/21/22 16:53 Antibiotics) C Review of Systems Review of Systems Narrative: Negative except as noted above Patient History Medical History History of pyelonephritis PTSD (post-traumatic stress disorder) Chronic constipation Recurrent pyelonephritis Surgical History Status post dilation and curettage Status post tubal ligation Family History Brother Age: 30 Mental health problem Father Age: 65 Hypertension High cholesterol Mental health problem Grandmother Hypertension High cholesterol Mother Mental health problem Grandfather Heart disease Hypertension High cholesterol Stroke Grandmother Hypertension High cholesterol tobacco type: cigarettes alcohol intake frequency: holidays/special occasions only Substance Use Type: marijuana Exam Initial Vital Signs Initial Vital Signs: Vital Signs Temperature 98.0 F 02/19/23 15:44 Pulse Rate 110 H 02/19/23 15:44 Respiratory Rate 20 02/19/23 15:44 Blood Pressure 124/74 02/19/23 15:44 Pulse Oximetry 98 02/19/23 15:44 Oxygen Delivery Method Room Air 02/19/23 15:44 Const: Awake, alert, uncomfortable, nontoxic Eyes: PERRL, EOMI, conjunctiva normal ENT: Atraumatic, dentition normal, mucous membranes moist Cardiac: regular rate, regular rhythm RESP: unlabored, clear bilaterally, no wheezing GI: Atraumatic, soft, nontender, nondistended, no rebound, no guarding MSK: Atraumatic, full range of motion, pulses equal Skin: Warm, Dry, intact, no rashes Neuro: AO x3, CN II-XII grossly intact, moves all extremities Psych: affect normal, mood normal, not suicidal, not homicidal Course Orders Ordered: ED Orders 02/19/23 15:47 Urinalysis and Microscopic Stat Urine Culture Stat 02/19/23 15:59 Complete Blood Count AUTO DIFF Stat Comprehensive Metabolic Panel Stat Lactate (Lactic Acid) Stat Lipase Stat PTT Partial Thromboplastin Ras Stat Procalcitonin Stat Prothrombin Time INR Stat 02/19/23 16:09 Blood Culture Stat 02/19/23 17:53 US renal complete Stat 02/19/23 18:17 CT abdomen pelvis w con Stat 02/19/23 18:20 Respiratory Panel (Film Array) Stat Discontinued Medications Sodium Chloride (Normal Saline 0.9%) 1,000 mls @ 1,000 mls/hr IV BOLUS ONE Stop: 02/19/23 16:52 Last Infusion: 02/19/23 17:20 Dose: Infused Documented By: Admin: 02/19/23 16:13 Dose: 1,000 mls/hr Documented By: SUSAN Acetaminophen (Ofirmev) 1,000 mg in 100 mls @ 400 mls/hr IV NOW ONE Stop: 02/19/23 18:07 Last Infusion: 02/19/23 18:24 Dose: Infused Documented By: Admin: 02/19/23 17:57 Dose: 400 mls/hr Documented By: EDNA Ketorolac Tromethamine (Ketorolac 30 Mg/Ml Vial) 15 mg IV NOW ONE Stop: 02/19/23 16:04 Last Admin: 02/19/23 16:13 Dose: 15 mg Documented By: SUSAN Ketorolac Tromethamine (Ketorolac 30 Mg/Ml Vial) 15 mg IV NOW ONE Stop: 02/19/23 17:48 Last Admin: 02/19/23 18:01 Dose: Not Given Documented By: EDNA Morphine Sulfate (Morphine 4 Mg/Ml Inj) 4 mg IV NOW ONE Stop: 02/19/23 18:40 Last Admin: 02/19/23 18:43 Dose: 4 mg Documented By: GINA Ondansetron HCl (Ondansetron 4 Mg/2 Ml Inj) 4 mg IV NOW PRN PRN Reason: Nausea And Vomiting Ondansetron HCl (Ondansetron 4 Mg Odt) 4 mg SL NOW PRN PRN Reason: Nausea And Vomiting Consultations Consultation #1: Dr Cartagena of urology @ 1915 -states that recommended course of antibiotics for pyelonephritis is 2-3 weeks. Inflammation will lag behind infection, with reassuring labs and improving urine patient can be continued on cefpodoxime outpatient for a longer course. She will need to follow up with either local urology or her urologist back at [facility] Vital Signs Vital signs: Vital Signs - 8 hr 02/19/23 15:44 02/19/23 16:40 02/19/23 16:41 Temperature 98.0 F Pulse Rate 110 H 104 H 101 H Respiratory Rate 20 Blood Pressure 124/74 Pulse Oximetry 98 100 100 Oxygen Delivery Method Room Air 02/19/23 16:41 02/19/23 17:00 02/19/23 17:00 Temperature Pulse Rate 82 Respiratory Rate Blood Pressure 121/64 117/69 Pulse Oximetry 99 Oxygen Delivery Method 02/19/23 17:30 02/19/23 17:30 02/19/23 18:00 Temperature Pulse Rate 81 Respiratory Rate Blood Pressure 116/68 115/69 Pulse Oximetry 98 Oxygen Delivery Method 02/19/23 18:00 02/19/23 18:31 02/19/23 19:00 Temperature Pulse Rate 75 63 70 Respiratory Rate Blood Pressure Pulse Oximetry 97 100 94 Oxygen Delivery Method 02/19/23 19:14 02/19/23 19:14 02/19/23 20:14 Temperature 98.4 F Pulse Rate 68 Respiratory Rate Blood Pressure 116/69 Pulse Oximetry 98 Oxygen Delivery Method MDM - Female Genitourinary Differential Diagnosis Differential diagnosis: Likely urinary tract infection, vaginitis and cystitis Lab Data 02/19/23 15:59 02/19/23 15:59 Labs: Lab Results 02/19/23 02/19/23 02/19/23 Range/Units 15:47 15:59 18:20 WBC 10.8 (4.5-11.0) X10^3/uL RBC 3.66 L (4.0-5.2) X10^6/uL Hgb 12.1 (12.0-16.0) g/dL Hct 35.2 L (36-46) % MCV 96.1 (80-100) fL MCH 33.2 (26-34) PG MCHC 34.5 (30-36) % RDW 13.2 (11.6-14.8) % Plt Count 333 (150-400) X10^3/uL Neut % (Auto) 73.9 (50-75) % Lymph % (Auto) 18.7 L (25-40) % Alfalfa % (Auto) 5.5 (3-14) % Eos % (Auto) 1.4 L (2-4) % Baso % (Auto) 0.5 (0-2) % Neut # (Auto) 8000 H (1013-8407) /uL Lymph # (Auto) 2000 (5912-9253) /uL Alfalfa # (Auto) 600 (0-900) /uL Eos # (Auto) 200 (0-450) /uL Baso # (Auto) 100 (0-100) /uL PT 10.9 (9.4-12.5) SECONDS INR 1.0 (0.9-1.3) APTT 25 L (25.1-36.5) SECONDS Sodium 138 (137-145) mmol/L Potassium 4.2 (3.4-5.1) mmol/L Chloride 109 H (98-107) mmol/L Carbon Dioxide 26 (22-32) mmol/L BUN 12 (7-17) mg/dL Creatinine 0.58 (0.52-1.04) mg/dL Estimated GFR > 60 (>60) mL/min BUN/Creatinine Ratio 20.7 (6-22) Glucose 102 H (70-100) mg/dL Lactate 1.2 (0.7-2.1) mmol/L Calcium 9.0 (8.4-10.2) mg/dL Total Bilirubin 0.7 (0.2-1.3) mg/dL AST 22 (14-36) IU/L ALT 16 (<35) IU/L Alkaline Phosphatase 40 (38-126) U/L Total Protein 7.0 (6.3-8.2) g/dL Albumin 4.0 (3.5-5.0) g/dL Globulin 3.0 (1.7-4.1) g/dL Albumin/Globulin Ratio 1.3 (1.0-2.8) Lipase 80 (23-300) U/L Procalcitonin < 0.03 (<0.5) ng/mL Urine Color Yellow Urine Appearance Cloudy Urine pH 7.5 (4.5-8.0) Ur Specific [place] 1.020 (1.000-1.035) Urine Protein 3+ H (Negative) Urine Glucose (UA) Trace H (Negative) g/dL Urine Ketones Trace H (NEGATIVE) Urine Occult Blood 3+ H (Negative) Urine Nitrate Positive H (Negative) Urine Bilirubin 1+ H (NEGATIVE) Ur Bilirubin Confirm Cancelled Urine Urobilinogen 4.0 H (0.2) E.U./dL Ur Leukocyte Esterase Trace H (NEGATIVE) Urine RBC 30-100/hpf H (0-5/HPF) Urine WBC 1-5/hpf (0-5/HPF) Ur Squamous Epith Cells 1-5 /hpf (0-5/HPF) Urine Bacteria Few (2-10) H (None) Ur Culture Indicated? Specimen cultured Chlamy pneumoniae PCR Not detected (Not Detect) Adenovirus (PCR) Not detected (Not Detect) B.parapertussis DNA PCR Not detected (Not Detecte) Coronavirus OC43 (PCR) Not detected (Not Detect) Coronavirus HKU1 (PCR) Not detected (Not Detect) Coronavirus 229E (PCR) Not detected (Not Detect) SARS-CoV-2 (PCR) Not detected (Not Detecte) Coronavirus NL63 (PCR) Not detected (Not Detect) Human Metapneumovir PCR Not detected (Not Detect) Influenza Type A (PCR) Not detected (Not Detect) Influenza Type B (PCR) Not detected (Not Detect) M. pneumoniae (PCR) Not detected (Not Detect) Parainfluenza 1 (PCR) Not detected (Not Detect) Parainfluenza 2 (PCR) Not detected (Not Detect) Parainfluenza 3 (PCR) Not detected (Not Detect) Parainfluenza 4 (PCR) Not detected (Not Detect) RSV (PCR) Not detected (Not Detect) Entero/Rhino (PCR) Not detected (Not Detect) MDM Narrative Medical decision making narrative: Uncomfortable but nontoxic patient presenting for persistent flank pain and dysuria. Records reviewed, patient grew greater than 100,000 CFU of E coli, which was initially treated with Cipro. Culture show indeterminate sensitivity to this antibiotic, but patient did appear to have sensitivity to 3rd generation cephalosporins, and she was treated with a 7 day course of cefpodoxime, which patient reports compliance to. Vital signs reviewed, unremarkable. Laboratory work ordered in triage reviewed, patient has no leukocytosis, lactic acid is normal, procalcitonin is normal. Patient urinalysis does have nitrites, however she did take Pyridium, which can affect sample size. On this visit patient is noted to have 30-100 RBCs per high-powered field, previously 5-10. CT of the abdomen and pelvis does not show any perinephric stranding or inflammation. There is noted bladder wall irregularity and thickening concerning for infection versus inflammation. Case discussed with Urology, who recommended a longer course of cefpodoxime. Typical course of antibiotics for pyelonephritis is 2-3 weeks, patient was only on appropriate antibiotics for 7 days. Urology also noted that inflammation can lag behind infection and resolution, however with appropriate therapy duration patient should improve. Patient counseled of all lab and imaging findings, advised of Urology recommendations. She is in agreement to taking additional antibiotics at this time. Pain medications sent to pharmacy as well. Patient advised on the importance of following up with either local Urology or her previous urologist at [facility]. ED return precautions discussed at bedside. Patient expressed understanding of the plan and is in agreement at this time. All questions answered at the time of discharge. Discharge Plan Departure Patient Disposition: Home Clinical Impression: Pyelonephritis Instructions: Kidney Infection Prescriptions: New cefpodoxime 200 mg tablet 200 mg PO Q12H Qty: 28 0RF Rx Instructions: must administer with a meal/food hydrocodone-acetaminophen 5-325 mg tablet 1 tab PO Q6H PRN (Reason: pain) Qty: 10 0RF No Action ibuprofen 400 mg Tablet 400 mg PO Q6H ondansetron 4 mg tablet,disintegrating 4 mg PO Q6H PRN (Reason: nausea and vomiting) Qty: 7 0RF acetaminophen [Tylenol] 325 mg Tablet 650 mg PO oxycodone-acetaminophen 5-325 mg tablet 1 tab PO Q6H PRN (Reason: pain) Qty: 10 0RF Referrals: Frida Johnson MD [Primary Care Provider] - John Cartagena MD [Physician] - Stand Alone Forms: Patient Portal/API
[2023-02-19] MEDS: MORPHINE 4 MG/ML INJ IV (18:43)
[2023-02-19 19:50] LABS: Adenovirus Not Detected (Not Detect); B. parapertussis Not Detected (Not Detecte); Bordetella pertussis Not Detected (Not Detect); Chlamydophila pneumoniae Not Detected (Not Detect); Coronavirus 229E Not Detected (Not Detect); Coronavirus HKU1 Not Detected (Not Detect); Coronavirus NL 63 Not Detected (Not Detect); Coronavirus OC43 Not Detected (Not Detect); Human Metapneumovirus Not Detected (Not Detect); Human Rhinovirus/Enterovirus Not Detected (Not Detect); Influenza A Not Detected (Not Detect); Influenza B Not Detected (Not Detect); Mycoplasma pneumoniae Not Detected (Not Detect); Parainfluenza Virus 1 Not Detected (Not Detect); Parainfluenza Virus 2 Not Detected (Not Detect); Parainfluenza Virus 3 Not Detected (Not Detect); Parainfluenza Virus 4 Not Detected (Not Detect); Respiratory Syncytial Virus Not Detected (Not Detect); SARS- CoV-2 Not Detected (Not Detecte)
== END 2023-02-19 20:15 | disposition home or self-care (01) ==
PROVIDERS: Emergency Medicine; Emergency Provider Emergency Medicine; Family Provider Family Medicine; PCP Family Medicine
DX: N12 Tubulo-interstitial nephritis, not specified as acute or chronic (principal)
CPT/HCPCS: 36415; 74177; 76770; 80053; 81001; 83605; 83690; 84145; 85025; 85610; 85730; 87040; 87086; 87633; 96365; 96375; 99284; 99285; J0131; J1885; J2270; Q9967

== ENCOUNTER 2023-09-20 12:52 | Emergency (ER) | payer SELFPAY ==
[2023-09-20 13:03] VITALS: BP 123/78; PULSE 92; RESP 16; TEMP 36.8; O2SAT 97; BMI 21.4
--- NOTE | 2023-09-20 13:50 | ED.FEMALEGU ---
HPI - Female Genitourinary <Oswaldo Rivera PA-C - Last Filed: 09/20/23 18:34> General Chief complaint: Urogenital-Female Stated complaint: poss kidney stones/infection Time Seen by Provider: 09/20/23 13:50 Source: patient Mode of arrival: Ambulatory History of Present Illness HPI Narrative: This is a 42 who presents emergency department due to acute onset of bilateral flank pain which wraps around to her lower abdomen onset 4 days ago. She states she was at a history of this in the past. She reports hematuria as well as bloody clots. She was history of pyelonephritis kidney stones but she says this is familiar and similar to the pain she was having now. She was has nausea and vomiting as well. Denies any vaginal discharge, chest pain, shortness of breath. Denies any fevers but reports chills Related Data Home Medications Medication Instructions Recorded Confirmed ibuprofen 400 mg tablet 400 mg PO Q6H 07/29/20 04/21/22 acetaminophen 325 mg tablet 650 mg PO 04/21/22 (Tylenol) Previous Rx's Medication Instructions Recorded oxycodone-acetaminophen 5 mg-325 1 tab PO Q6H PRN pain #10 tabs 04/21/22 mg tablet ondansetron 4 mg disintegrating 4 mg PO Q6H PRN nausea and 02/09/23 tablet vomiting #7 tabs cefpodoxime 200 mg tablet 200 mg PO Q12H #28 tabs 02/19/23 hydrocodone 5 mg-acetaminophen 325 1 tab PO Q6H PRN pain #10 tabs 02/19/23 mg tablet cefpodoxime 200 mg tablet 400 mg (2 x 200 mg) PO BID #20 tabs 09/20/23 phenazopyridine 200 mg tablet 200 mg PO TID #3 tabs 09/20/23 Allergies Allergy/AdvReac Type Severity Reaction Status Date / Time Sulfa (Sulfonamide Allergy Severe ANAPHYLACTI Verified 04/21/22 16:53 Antibiotics) C Review of Systems <Oswaldo Rivera PA-C - Last Filed: 09/20/23 18:34> Review of Systems Narrative: GENERAL: Denies chills, fatigue, malaise, fever, sweats. HEENT: Denies sinus pain, ear pain, sore throat, difficulty swallowing, dizziness. RESPIRATORY: Denies dyspnea, cough, wheezing, hemoptysis, sputum. CARDIOVASCULAR: Denies chest pain, palpitations, orthopnea, edema, GASTROINTESTINAL: Reports nausea and vomiting denies diarrhea, constipation, melena. : Reports dysuria, hematuria Denies , frequency, incontinence, , urinary retention. MUSCULOSKELETAL: Reports bilateral flank pain, denies weakness, joint pain, or bony pain SKIN: Denies rash, skin lesions, or other NEUROLOGIC: Denies weakness, headache, numbness, change in speech, confusion, seizures, incoordination. PSYCHIATRIC: No concerning psychosocial issues. 12 point review of systems is negative except for those stated above Patient History <Oswaldo Rivera PA-C - Last Filed: 09/20/23 18:34> Medical History History of pyelonephritis PTSD (post-traumatic stress disorder) Chronic constipation Recurrent pyelonephritis Surgical History Status post dilation and curettage Status post tubal ligation Family History Brother Age: 30 Mental health problem Father Age: 65 Hypertension High cholesterol Mental health problem Grandmother Hypertension High cholesterol Mother Mental health problem Grandfather Heart disease Hypertension High cholesterol Stroke Grandmother Hypertension High cholesterol tobacco type: cigarettes alcohol intake frequency: holidays/special occasions only Substance Use Type: marijuana Exam <CLARISSA Escalera Last Filed: 09/20/23 18:34> Narrative Exam Narrative: GENERAL: Well-developed patient, in mild distress. HEAD: Atraumatic. Normocephalic. EYES: Pupils equal round and reactive. Extraocular motions intact. No scleral icterus. No injection or drainage. ENT: Nose without bleeding, purulent drainage. Throat without erythema, tonsillar hypertrophy or exudate. Airway patent. NECK: Trachea midline. Non tender EXTREMITIES: No edema or joint tenderness. NEURO: AOx3. SKIN: No rash or erythema of visible areas GASTROINTESTINAL: Suprapubic tenderness to palpation BACK: Bilateral CVA tenderness to palpation Initial Vital Signs Initial Vital Signs: Vital Signs Temperature 98.2 F 09/20/23 13:03 Pulse Rate 92 H 09/20/23 13:03 Respiratory Rate 16 09/20/23 13:03 Blood Pressure 123/78 09/20/23 13:03 Pulse Oximetry 97 09/20/23 13:03 Oxygen Delivery Method Room Air 09/20/23 13:03 <Kelin Rao DO - Last Filed: 09/21/23 10:20> Initial Vital Signs Initial Vital Signs: Vital Signs Temperature 98.2 F 09/20/23 13:03 Pulse Rate 92 H 09/20/23 13:03 Respiratory Rate 16 09/20/23 13:03 Blood Pressure 123/78 09/20/23 13:03 Pulse Oximetry 97 09/20/23 13:03 Oxygen Delivery Method Room Air 09/20/23 13:03 Course <Oswaldo Rivera PA-C - Last Filed: 09/20/23 18:34> Orders Ordered: Discontinued Medications Ceftriaxone Sodium (Ceftriaxone 2,000 Mg Vial) 1,000 mg IM NOW ONE Stop: 09/20/23 18:29 Last Admin: 09/20/23 18:43 Dose: 1,000 mg Documented By: RB Ketorolac Tromethamine (Ketorolac 30 Mg/Ml Vial) 30 mg IV NOW ONE Stop: 09/20/23 16:31 Last Admin: 09/20/23 16:52 Dose: 30 mg Documented By: RB Morphine Sulfate (Morphine 4 Mg/Ml Inj) 4 mg IV NOW ONE Stop: 09/20/23 15:29 Last Admin: 09/20/23 15:44 Dose: 4 mg Documented By: RB Morphine Sulfate (Morphine 4 Mg/Ml Inj) 4 mg IV NOW ONE Stop: 09/20/23 17:36 Last Admin: 09/20/23 17:36 Dose: Not Given Documented By: RB Ondansetron HCl (Ondansetron 4 Mg/2 Ml Inj) 4 mg IV NOW PRN PRN Reason: Nausea And Vomiting Ondansetron HCl (Ondansetron 4 Mg Odt) 4 mg SL NOW PRN PRN Reason: Nausea And Vomiting Last Admin: 09/20/23 14:48 Dose: 4 mg Documented By: RB Phenazopyridine HCl (Phenazopyridine 100 Mg Tablet) 200 mg PO NOW ONE Stop: 09/20/23 17:37 Last Admin: 09/20/23 17:55 Dose: 200 mg Documented By: RB Vital Signs Vital signs: Vital Signs - 8 hr 09/20/23 13:03 Temperature 98.2 F Pulse Rate 92 H Respiratory Rate 16 Blood Pressure 123/78 Pulse Oximetry 97 Oxygen Delivery Method Room Air <Kelin Rao DO - Last Filed: 09/21/23 10:20> Orders Ordered: Discontinued Medications Ceftriaxone Sodium (Ceftriaxone 2,000 Mg Vial) 1,000 mg IM NOW ONE Stop: 09/20/23 18:29 Last Admin: 09/20/23 18:43 Dose: 1,000 mg Documented By: RB Ketorolac Tromethamine (Ketorolac 30 Mg/Ml Vial) 30 mg IV NOW ONE Stop: 09/20/23 16:31 Last Admin: 09/20/23 16:52 Dose: 30 mg Documented By: RB Morphine Sulfate (Morphine 4 Mg/Ml Inj) 4 mg IV NOW ONE Stop: 09/20/23 15:29 Last Admin: 09/20/23 15:44 Dose: 4 mg Documented By: RB Morphine Sulfate (Morphine 4 Mg/Ml Inj) 4 mg IV NOW ONE Stop: 09/20/23 17:36 Last Admin: 09/20/23 17:36 Dose: Not Given Documented By: RB Ondansetron HCl (Ondansetron 4 Mg/2 Ml Inj) 4 mg IV NOW PRN PRN Reason: Nausea And Vomiting Ondansetron HCl (Ondansetron 4 Mg Odt) 4 mg SL NOW PRN PRN Reason: Nausea And Vomiting Last Admin: 09/20/23 14:48 Dose: 4 mg Documented By: RB Phenazopyridine HCl (Phenazopyridine 100 Mg Tablet) 200 mg PO NOW ONE Stop: 09/20/23 17:37 Last Admin: 09/20/23 17:55 Dose: 200 mg Documented By: RB Vital Signs Vital signs: Vital Signs - 8 hr 09/20/23 13:03 Temperature 98.2 F Pulse Rate 92 H Respiratory Rate 16 Blood Pressure 123/78 Pulse Oximetry 97 Oxygen Delivery Method Room Air MDM - Female Genitourinary <Oswaldo Rivera PA-C - Last Filed: 09/20/23 18:34> Lab Data 09/20/23 15:30 09/20/23 15:30 Labs: Lab Results 09/20/23 09/20/23 Range/Units 14:27 15:30 WBC 13.8 H (4.5-11.0) X10^3/uL RBC 3.74 L (4.0-5.2) X10^6/uL Hgb 12.6 (12.0-16.0) g/dL Hct 36.9 (36-46) % MCV 98.5 (80-100) fL MCH 33.7 (26-34) PG MCHC 34.2 (30-36) % RDW 12.8 (11.6-14.8) % Plt Count 291 (150-400) X10^3/uL Neut % (Auto) 81.0 H (50-75) % Lymph % (Auto) 10.9 L (25-40) % [place] % (Auto) 6.9 (3-14) % Eos % (Auto) 0.7 L (2-4) % Baso % (Auto) 0.5 (0-2) % Neut # (Auto) 65480 H (2437-8952) /uL Lymph # (Auto) 1500 (7318-8823) /uL [place] # (Auto) 1000 H (0-900) /uL Eos # (Auto) 100 (0-450) /uL Baso # (Auto) 100 (0-100) /uL Sodium 138 (137-145) mmol/L Potassium 3.9 (3.4-5.1) mmol/L Chloride 109 H (98-107) mmol/L Carbon Dioxide 24 (22-32) mmol/L BUN 10 (7-17) mg/dL Creatinine 0.64 (0.52-1.04) mg/dL Estimated GFR > 60 (>60) mL/min BUN/Creatinine Ratio 15.6 (6-22) Glucose 90 (70-100) mg/dL Calcium 9.3 (8.4-10.2) mg/dL Total Bilirubin 0.9 (0.2-1.3) mg/dL AST 25 (14-36) IU/L ALT 14 (<35) IU/L Alkaline Phosphatase 52 (38-126) U/L Total Protein 7.3 (6.3-8.2) g/dL Albumin 4.4 (3.5-5.0) g/dL Globulin 2.9 (1.7-4.1) g/dL Albumin/Globulin Ratio 1.5 (1.0-2.8) Ur Bilirubin Confirm Negative (Negative) Urine RBC 5-10/hpf H (0-5/HPF) Urine WBC 30-100/hpf H (0-5/HPF) Ur Squamous Epith Cells 1-5 /hpf (0-5/HPF) Urine Bacteria Many (>30) H (None) Ur Culture Indicated? Specimen cultured Micro UA Comment Vol Urine Centrifuged 10ml (spun) Urine Dip Bedside Urine Glucose 100 mg/dl Bedside Urine Bilirubin +++ 4 Bedside Urine Ketone +/- 5 Urine Specific [place] 1.015 Bedside Urine Occult Blood +++ Bedside Urine pH 6.0 Bedside Urine Protein ++ 100 Bedside Urine Urobilinogen 2+ 4mg Bedside Urine Nitrite + Positive Bedside Urine Leukocytes +++ 500 Esterase MDM Narrative Medical decision making narrative: ED course: This is a 42-year-old female presents emergency department due to suspected complicated cystitis. Patient has a history of pyelonephritis. CT did not show this is time in and did not show any nephrolithiasis. Did show evidence of cystitis. We will treat as a complicated and will give a injection of Rocephin as well as outpatient prescription for cefpodoxime as recommended by up-to-date. Patient was an established urologist she will follow up with. CC: Dysuria Complicating co-morbidities: History of pyelonephritis Data collected from: Previous notes Medical records reviewed: Patient was last seen about 8 months ago due to pyelonephritis. History of recurrent UTIs. Has a ?small ureters? per urology at [facility]. Urology was consulted who recommended a course of antibiotics for pyelonephritis for 2-3 weeks. Has not established urologist with [facility]. CT was unremarkable. Patient was eventually discharged with the recommendations take a 3 week course of cefpodoxime for pyelonephritis. Differential considered, but not limited to: Nephrolithiasis, pyelonephritis, complicated cystitis, simple cystitis Exam documented above, pertinent findings include: As above Lab Test results independently reviewed as above. Pertinent findings: Mild leukocytosis, UA shows evidence of UTI Imaging studies independently reviewed: CT showed no evidence of pyelonephritis or nephrolithiasis Scores Used: None MIPS Elements: None Consultations: None Treatments: 1 g IM Rocephin Re-evaluations: None Discussion: Discussed plan with the patient was comfortable with the plan Diagnosis: Complicated cystitis Disposition: see below, along with detailed discharge instructions that have been reviewed with patient as well as indications for ED re-evaluation and additional outpatient follow up <Kelin Rao DO - Last Filed: 09/21/23 10:20> Lab Data Labs: Lab Results 09/20/23 09/20/23 Range/Units 14:27 15:30 WBC 13.8 H (4.5-11.0) X10^3/uL RBC 3.74 L (4.0-5.2) X10^6/uL Hgb 12.6 (12.0-16.0) g/dL Hct 36.9 (36-46) % MCV 98.5 (80-100) fL MCH 33.7 (26-34) PG MCHC 34.2 (30-36) % RDW 12.8 (11.6-14.8) % Plt Count 291 (150-400) X10^3/uL Neut % (Auto) 81.0 H (50-75) % Lymph % (Auto) 10.9 L (25-40) % [place] % (Auto) 6.9 (3-14) % Eos % (Auto) 0.7 L (2-4) % Baso % (Auto) 0.5 (0-2) % Neut # (Auto) 42027 H (6556-2071) /uL Lymph # (Auto) 1500 (0256-1408) /uL [place] # (Auto) 1000 H (0-900) /uL Eos # (Auto) 100 (0-450) /uL Baso # (Auto) 100 (0-100) /uL Sodium 138 (137-145) mmol/L Potassium 3.9 (3.4-5.1) mmol/L Chloride 109 H (98-107) mmol/L Carbon Dioxide 24 (22-32) mmol/L BUN 10 (7-17) mg/dL Creatinine 0.64 (0.52-1.04) mg/dL Estimated GFR > 60 (>60) mL/min BUN/Creatinine Ratio 15.6 (6-22) Glucose 90 (70-100) mg/dL Calcium 9.3 (8.4-10.2) mg/dL Total Bilirubin 0.9 (0.2-1.3) mg/dL AST 25 (14-36) IU/L ALT 14 (<35) IU/L Alkaline Phosphatase 52 (38-126) U/L Total Protein 7.3 (6.3-8.2) g/dL Albumin 4.4 (3.5-5.0) g/dL Globulin 2.9 (1.7-4.1) g/dL Albumin/Globulin Ratio 1.5 (1.0-2.8) Ur Bilirubin Confirm Negative (Negative) Urine RBC 5-10/hpf H (0-5/HPF) Urine WBC 30-100/hpf H (0-5/HPF) Ur Squamous Epith Cells 1-5 /hpf (0-5/HPF) Urine Bacteria Many (>30) H (None) Ur Culture Indicated? Specimen cultured Micro UA Comment Vol Urine Centrifuged 10ml (spun) Urine Dip Bedside Urine Glucose 100 mg/dl Bedside Urine Bilirubin +++ 4 Bedside Urine Ketone +/- 5 Urine Specific [place] 1.015 Bedside Urine Occult Blood +++ Bedside Urine pH 6.0 Bedside Urine Protein ++ 100 Bedside Urine Urobilinogen 2+ 4mg Bedside Urine Nitrite + Positive Bedside Urine Leukocytes +++ 500 Esterase Discharge Plan Departure Patient Disposition: Home Clinical Impression: Complicated urinary tract infection Activity Restrictions/Additional Instructions: Thank you for coming to the [facility] Emergency Department today. Your CT shows no evidence of any kind a stone in your kidneys or pyelonephritis. Did show evidence of cystitis. We will treat your symptoms as a complicated UTI and we will treat with IM Rocephin as well as oral antibiotics. Please take it as prescribed and follow up with your urologist as the next possible appointment for further management and care. Please use ibuprofen and Tylenol as needed for the pain. Please return to the emergency department if you develop any significant new or worsening pain or any other concerning signs or symptoms. I hope you feel better soon. Please follow up with your primary care provider within a week if your symptoms continue. If you do not have a primary care provider please contact the [facility] Resource line at [phone]. They will ask some questions about your medical history and help you get set up with a provider in the community. Prescriptions: New phenazopyridine 200 mg tablet 200 mg PO TID Qty: 3 0RF cefpodoxime 200 mg tablet 400 mg PO BID Qty: 20 0RF Rx Instructions: must administer with a meal/food No Action ibuprofen 400 mg Tablet 400 mg PO Q6H ondansetron 4 mg tablet,disintegrating 4 mg PO Q6H PRN (Reason: nausea and vomiting) Qty: 7 0RF acetaminophen [Tylenol] 325 mg Tablet 650 mg PO oxycodone-acetaminophen 5-325 mg tablet 1 tab PO Q6H PRN (Reason: pain) Qty: 10 0RF cefpodoxime 200 mg tablet 200 mg PO Q12H Qty: 28 0RF Rx Instructions: must administer with a meal/food hydrocodone-acetaminophen 5-325 mg tablet 1 tab PO Q6H PRN (Reason: pain) Qty: 10 0RF Referrals: Miscellaneous,Doctor, MD [Primary Care Provider] - Stand Alone Forms: Patient Portal/API ED Sign-out <Kelin Rao DO - Last Filed: 09/21/23 10:20> Cosign ED Attending Ravindra Attestation: I was immediately available in the department for consultation.
[2023-09-20] MEDS: ONDANSETRON 4 MG ODT SL (14:48)
--- NOTE | 2023-09-20 15:14 | PC.NURSE ---
This RN informed provider of patient pain 12/25. Provider noted and no new orders at this time.
[2023-09-20 15:18] LABS: Bacteria Urine Many (>30); Culture Indicated Urine Specimen Cultured; RBC Urine 5-10/HPF (0-5/HPF); Squamous Epithelial Cell Urine 1-5 /HPF (0-5/HPF); Urine Volume 10mL (spun); WBC Urine 30-100/HPF (0-5/HPF)
[2023-09-20 15:19] LABS: Ictotest Urine Negative (Negative)
--- NOTE | 2023-09-20 15:29 | DI.CT.S_ITS ---
PROCEDURE: CT ABDOMEN PELVIS W CON INDICATIONS: hematuria TECHNIQUE: After the administration of intravenous contrast, axial sections acquired from the lung bases to the pubic symphysis. Coronal and sagittal reformats were performed. For radiation dose reduction, the following was used: automated exposure control, adjustment of mA and/or kV according to patient size. COMPARISON: [facility], CT, CT ABDOMEN PELVIS W CON, 06/10/2020, 21:58. FINDINGS: Lower thorax: The lung bases are clear. Heart size normal. No hiatal hernia. Liver: Normal in size and attenuation. No contour deformity present. Biliary system: No calcified cholelithiasis or pericholecystic inflammation. No intra or extrahepatic bile duct dilatation. Pancreas: Unremarkable without mass or inflammation evident. Spleen: Normal in size and density. Adrenals: Normal morphology and density. Reproductive system: Unremarkable as visualized. Urinary system: Normal renal size and attenuation. No renal calculi, hydronephrosis, or solid mass present. There is diffuse wall thickening and enhancement of the bladder without focal mass lesion or nodularity. Enhancement is contiguous with the left ureteral and left renal collecting system urothelium, consistent with ureteral infection/inflammation left renal parenchyma however shows normal and symmetric enhancement without evidence of pyelonephritis. Right ureter and collecting system and normal. Right renal scarring noted. Gastrointestinal system: The bowel is unremarkable without evidence of bowel obstruction or inflammation. The stomach appears unremarkable. Appendix: No findings to suggest acute appendicitis. Peritoneal spaces: No mesenteric or retroperitoneal adenopathy. No free air. Small amount of free fluid in the pelvis Vasculature: The IVC, aorta and iliac vasculature are unremarkable. Abdominal wall: Abdominal wall intact without evidence of ventral or inguinal hernias. Musculoskeletal: Normal bone mineralization. No acute fractures. IMPRESSION: Acute cystitis is associated with left ureteral and left renal collecting system infection/inflammatory change. No evidence of sebastian pyelonephritis. Approved by: Zaid Bui M.D. on 09/20/2023 at 16:23
[2023-09-20] MEDS: MORPHINE 4 MG/ML INJ IV (15:44)
[2023-09-20 15:50] LABS: Add Manual Diff / Slide Review NO; Basophils Absolute Auto 100 /uL (0-100); Basophils Percent Auto 0.5 % (0-2); Eosinophils Absolute Auto 100 /uL (0-450); Eosinophils Percent Auto 0.7 % (2-4); Hematocrit 36.9 % (36-46); Hemoglobin 12.6 g/dL (12.0-16.0); Lymphocytes Absolute Auto 1500 /uL (1100-4500); Lymphocytes Percent Auto 10.9 % (25-40); Mean Corpuscular HGB Conc 34.2 % (30-36); Mean Corpuscular Hemoglobin 33.7 PG (26-34); Mean Corpuscular Volume 98.5 fL (80-100); Monocytes Absolute Auto 1000 /uL (0-900); Monocytes Percent Auto 6.9 % (3-14); Neutrophils Absolute Auto 11200 /uL (1500-7000); Platelet Count 291 X10^3/uL (150-400); Red Blood Cell Count 3.74 X10^6/uL (4.0-5.2); Red Cell Distribution Width 12.8 % (11.6-14.8); White Blood Cell Count 13.8 X10^3/uL (4.5-11.0)
[2023-09-20 16:13] LABS: Alanine Aminotransferase 14 IU/L (<35); Albumin 4.4 g/dL (3.5-5.0); Albumin Globulin Ratio 1.5 (1.0-2.8); Alkaline Phosphatase 52 U/L (38-126); Aspartate Aminotransferase 25 IU/L (14-36); BUN Creatinine Ratio 15.6 (6-22); Bilirubin Total 0.9 mg/dL (0.2-1.3); Blood Urea Nitrogen 10 mg/dL (7-17); Calcium 9.3 mg/dL (8.4-10.2); Carbon Dioxide 24 mmol/L (22-32); Chloride 109 mmol/L (98-107); Estimated Glomerular Filt Rate > 60 mL/min (>60); Globulin 2.9 g/dL (1.7-4.1); Glucose 90 mg/dL (70-100); HEMOLYSIS < 15 (0-50); Potassium 3.9 mmol/L (3.4-5.1); Sodium 138 mmol/L (137-145); Total Protein 7.3 g/dL (6.3-8.2)
[2023-09-20] MEDS: KETOROLAC 30 MG/ML VIAL IV (16:52)
--- NOTE | 2023-09-20 17:36 | PC.NURSE ---
Provider gave verbal order to give patient additional 4mg of morphine IV push. This RN placed the order. Provider informed RN that he changed his mind and wanted a different medication. Provider placed that order into EMR.
[2023-09-20] MEDS: PHENAZOPYRIDINE 100 MG TABLET 200 MG PO (17:55)
[2023-09-20] MEDS: cefTRIAXone 2,000 MG VIAL 1000 MG IM (18:43)
[2023-09-20 18:52] VITALS: BP 124/68; PULSE 82; RESP 16; TEMP 36.5; O2SAT 98
== END 2023-09-20 18:53 | disposition home or self-care (01) ==
PROVIDERS: Emergency Medicine; Emergency Provider Physician Assistant Medical; Family Provider Family Medicine
DX: N39.0 Urinary tract infection, site not specified (principal); R31.9 Hematuria, unspecified; R11.2 Nausea with vomiting, unspecified
CPT/HCPCS: 36415; 74177; 80053; 81003; 81015; 85025; 87077; 87086; 87186; 96372; 96374; 96375; 99284; J0696; J1885; J2270; Q9967

== ENCOUNTER 2023-10-22 13:56 | Emergency (ER) | payer SELFPAY ==
[2023-10-22 13:58] VITALS: BP 139/78; PULSE 95; RESP 14; TEMP 36.7; O2SAT 100; BMI 22.3
[2023-10-22 14:03] VITALS: BP 139/78; PULSE 104; O2SAT 100
[2023-10-22 14:22] LABS: Bilirubin Urine UA NEGATIVE (NEGATIVE); Glucose Urine UA TRACE g/dL (Negative); Ketones Urine UA NEGATIVE (NEGATIVE); Leukocyte Esterase Urine UA 3+ (NEGATIVE); Nitrite Urine UA POSITIVE (Negative); Occult Blood Urine UA TRACE-INTACT (Negative); Protein Urine UA 1+ (Negative); Specific Gravity Urine UA <=1.005 (1.000-1.035)
[2023-10-22 14:23] LABS: Appearance Urine UA CLOUDY; Color Urine UA ORANGE
[2023-10-22 14:45] LABS: Bacteria Urine Few (2-10); Culture Indicated Urine Specimen Cultured; RBC Urine 1-5/HPF (0-5/HPF); Squamous Epithelial Cell Urine 5-10 /HPF (0-5/HPF); Urine Volume 10mL (spun); WBC Urine 5-10/HPF (0-5/HPF)
--- NOTE | 2023-10-22 15:03 | ED.FEMALEGU ---
HPI - Female Genitourinary General Chief complaint: Urogenital-Female Stated complaint: poss uti Time Seen by Provider: 10/22/23 15:03 Source: patient, RN notes reviewed and old records reviewed Mode of arrival: Ambulatory Limitations: no limitations History of Present Illness HPI Narrative: 43-year-old female history of recurrent UTIs and pyelonephritis. Patient states she is follows with Urology she has been told her ureters are very narrow so she is higher risk to develop infections, also when she gets constipated her ureters get a little bit more compressed but she is more likely. She has been taking probiotics daily which has helped she is gone from 06/20 episodes of pyelonephritis a year to 2 or 3. States symptoms have been present for a week, she is tried azo without any improvement. Denies fevers, she has had nausea but no vomiting describes some lower abdominal pain swelling bilateral flank pain. States very similar to prior episodes of pyelonephritis. Has some dysuria urgency and frequency, she has had some loose stools. No black or bloody stools. Patient states she was here in the past month received an antibiotic had improvement. She states allergic to sulfa. Does follow with Urology. Does use tobacco, occasional alcohol, no recreational drugs. Related Data Home Medications Medication Instructions Recorded Confirmed ibuprofen 400 mg tablet 400 mg PO Q6H 07/29/20 04/21/22 acetaminophen 325 mg tablet 650 mg PO 04/21/22 (Tylenol) Previous Rx's Medication Instructions Recorded oxycodone-acetaminophen 5 mg-325 1 tab PO Q6H PRN pain #10 tabs 04/21/22 mg tablet ondansetron 4 mg disintegrating 4 mg PO Q6H PRN nausea and 02/09/23 tablet vomiting #7 tabs cefpodoxime 200 mg tablet 200 mg PO Q12H #28 tabs 02/19/23 hydrocodone 5 mg-acetaminophen 325 1 tab PO Q6H PRN pain #10 tabs 02/19/23 mg tablet cefpodoxime 200 mg tablet 400 mg (2 x 200 mg) PO BID #20 tabs 09/20/23 phenazopyridine 200 mg tablet 200 mg PO TID #3 tabs 09/20/23 ciprofloxacin HCl 500 mg tablet 500 mg PO Q12H #20 tabs 10/22/23 oxycodone 5 mg tablet 5 mg PO Q6H PRN pain #10 tabs 10/22/23 Allergies Allergy/AdvReac Type Severity Reaction Status Date / Time Sulfa (Sulfonamide Allergy Severe ANAPHYLACTI Verified 10/22/23 14:06 Antibiotics) C Review of Systems Review of Systems ROS Unobtainable: All systems reviewed & are unremarkable except as noted in HPI and below Patient History Medical History History of pyelonephritis PTSD (post-traumatic stress disorder) Chronic constipation Recurrent pyelonephritis Surgical History Status post dilation and curettage Status post tubal ligation Family History Brother Age: 30 Mental health problem Father Age: 65 Hypertension High cholesterol Mental health problem Grandmother Hypertension High cholesterol Mother Mental health problem Grandfather Heart disease Hypertension High cholesterol Stroke Grandmother Hypertension High cholesterol tobacco type: cigarettes alcohol intake frequency: holidays/special occasions only Substance Use Type: marijuana Exam Narrative Exam Narrative: GENERAL: Alert and oriented x three, female in [id number] distress. HEENT: Head normocephalic, atraumatic, EOMI, pupils reactive, face symmetric, moist mucous membranes NECK: Supple, full range of motion CARDIOVASCULAR: Regular rate and rhythm without murmurs, rubs or gallops. RESPIRATORY: Breath sounds equal bilaterally, no wheezes rales or rhonchi. ABDOMEN: Soft, mild suprapubic tenderness Normoactive bowel sounds all 4 quadrants. No guarding or rebound, rigidity, no mass : Bilateral flank CVA tenderness EXTREMITIES: Normal range of motion, no clubbing or edema. Neurovascularly intact NEUROLOGICAL: Cranial nerves II through XII grossly intact. Moving all extremities SKIN: Warm, dry, no petechiae, no rashes or lesions. Initial Vital Signs Initial Vital Signs: Vital Signs Temperature 98.0 F 10/22/23 13:58 Pulse Rate 95 H 10/22/23 13:58 Respiratory Rate 14 10/22/23 13:58 Blood Pressure 139/78 10/22/23 13:58 Pulse Oximetry 100 10/22/23 13:58 Oxygen Delivery Method Room Air 10/22/23 13:58 Course Orders Ordered: Discontinued Medications Ciprofloxacin (Ciprofloxacin 250 Mg Tablet) 500 mg PO NOW ONE Stop: 10/22/23 15:26 Last Admin: 10/22/23 15:58 Dose: 500 mg Documented By: KOKO Ketorolac Tromethamine (Ketorolac 30 Mg/Ml Vial) 30 mg IM NOW ONE Stop: 10/22/23 15:25 Last Admin: 10/22/23 15:57 Dose: 30 mg Documented By: KOKO Ondansetron HCl (Ondansetron 4 Mg Odt) 4 mg SL NOW ONE Stop: 10/22/23 15:25 Last Admin: 10/22/23 15:58 Dose: 4 mg Documented By: KOKO Vital Signs Vital signs: Vital Signs - 8 hr 10/22/23 13:58 10/22/23 14:03 10/22/23 14:03 Temperature 98.0 F Pulse Rate 95 H 104 H Respiratory Rate 14 Blood Pressure 139/78 139/78 Pulse Oximetry 100 100 Oxygen Delivery Method Room Air MDM - Female Genitourinary Lab Data Labs: Lab Results 10/22/23 Range/Units 13:59 Urine Color Romeo Urine Appearance Cloudy Urine pH 7.0 (4.5-8.0) Ur Specific [place] <=1.005 (1.000-1.035) Urine Protein 1+ H (Negative) Urine Glucose (UA) Trace H (Negative) g/dL Urine Ketones Negative (NEGATIVE) Urine Occult Blood Trace-intact (Negative) Urine Nitrate Positive H (Negative) Urine Bilirubin Negative (NEGATIVE) Urine Urobilinogen 4.0 H (0.2) E.U./dL Ur Leukocyte Esterase 3+ H (NEGATIVE) Urine RBC 1-5/hpf (0-5/HPF) Urine WBC 5-10/hpf H (0-5/HPF) Ur Squamous Epith Cells 5-10 /hpf H (0-5/HPF) Urine Bacteria Few (2-10) H (None) Ur Culture Indicated? Specimen cultured Vol Urine Centrifuged 10ml (spun) Urine Test Negative (Negative) [facility] Narrative Medical decision making narrative: UA is positive for nitrate positive urine, trace glucose 4+ bili 3+ leuks 5-10 white cells 5-10 squamous few bacteria. Was sent for culture. is negative. 43-year-old female afebrile vitals are overall appropriate, patient has bilateral flank pain pelvic pain symptoms consistent with prior pyelonephritis. Reviewed prior culture plan to start antibiotics Zofran and Toradol discussed labs and further workup but patient has had multiple workups in the past she states it was very similar in his overall well-appearing, states feels comfortable holding off on further workup.. We will start oral antibiotics. Patient feels much more comfortable after medications. Discussed return precautions. Patient feels comfortable with the plan. Discharge Plan Departure Patient Disposition: Home Clinical Impression: Pyelonephritis Instructions: DI for Kidney Infection Activity Restrictions/Additional Instructions: Follow up with your physician for recheck. You can take Tylenol up to a 1000 mg every 6 hours as needed for and/or ibuprofen up to 600 mg every 6 hours as needed. If inadequate for pain you can take oxycodone 1 tablet every 6 hours as needed. This medication can make you sleepy do not drive, perform hazardous activities or make any major decisions while taking it. This medication will make you constipated please take a stool softener once to twice daily until stools are soft and regular. Take oral antibiotics until completed, take 1 tablet every 12 hours times 10 days. Prescription sent to [facility] in [place] Please return for fevers, worsening abdominal back or flank pain, vomiting, lightheadedness or passing out, black or bloody stools, inability to urinate or other new or concerning changes. Prescriptions: New ciprofloxacin HCl 500 mg tablet 500 mg PO Q12H Qty: 20 0RF oxycodone 5 mg tablet 5 mg PO Q6H PRN (Reason: pain) Qty: 10 0RF No Action ibuprofen 400 mg Tablet 400 mg PO Q6H ondansetron 4 mg tablet,disintegrating 4 mg PO Q6H PRN (Reason: nausea and vomiting) Qty: 7 0RF acetaminophen [Tylenol] 325 mg Tablet 650 mg PO oxycodone-acetaminophen 5-325 mg tablet 1 tab PO Q6H PRN (Reason: pain) Qty: 10 0RF cefpodoxime 200 mg tablet 200 mg PO Q12H Qty: 28 0RF Rx Instructions: must administer with a meal/food hydrocodone-acetaminophen 5-325 mg tablet 1 tab PO Q6H PRN (Reason: pain) Qty: 10 0RF phenazopyridine 200 mg tablet 200 mg PO TID Qty: 3 0RF cefpodoxime 200 mg tablet 400 mg PO BID Qty: 20 0RF Rx Instructions: must administer with a meal/food Referrals: Miscellaneous,Doctor, MD [Primary Care Provider] - Stand Alone Forms: Patient Portal/API
[2023-10-22 15:47] LABS: Pregnancy Test Urine Negative (Negative)
[2023-10-22] MEDS: KETOROLAC 30 MG/ML VIAL IM (15:57)
[2023-10-22] MEDS: CIPROFLOXACIN 250 MG TABLET 500 MG PO (15:58)
[2023-10-22] MEDS: ONDANSETRON 4 MG ODT SL (15:58)
[2023-10-22 16:23] VITALS: BP 124/74; PULSE 69; RESP 18; O2SAT 98
== END 2023-10-22 16:24 | disposition home or self-care (01) ==
PROVIDERS: Emergency Provider Emergency Medicine; Family Provider Family Medicine
DX: N12 Tubulo-interstitial nephritis, not specified as acute or chronic (principal)
CPT/HCPCS: 81001; 81025; 87077; 87086; 87186; 96372; 99283; J1885